=== PATIENT | male | born 1980 | race American Indian/Alaskan Native ===

== ENCOUNTER 2018-10-13 23:38 | Inpatient (IN) | payer OTHER ==
[2018-10-14] MEDS ORDERED: NORMODYNE IV ONE (00:02)
[2018-10-14] MEDS ORDERED: CARDENE 50 MG in NACL 0.9% 250ML 230 ML IV SCH (00:03)
--- NOTE | 2018-10-14 00:05 | Cat Scan Report ---
CT head/brain wo con INDICATION / CLINICAL INFORMATION: Stoke like Sx. TECHNIQUE: All CT scans at this location are performed using CT dose reduction for ALARA by means of automated e xposure control. COMPARISON: None available. FINDINGS: Ventricle size is normal. No mass or mass effect is seen. There is no evidence of intracranial hemorr sergio. No obvious area of infarction is identified. Visualized paranasal sinuses are clear. IMPRESSION: No acute findings. Signer Name: Naresh Perez MD FACR Signed: 10/14/2018 12:01 AM Workstation Name: [id number]
[2018-10-14] MEDS ORDERED: NORMODYNE IV STA (00:11)
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
[2018-10-14 00:22] LABS: Basophils # (Auto) 0.1 K/mm3 (0.0-0.1); Eosinophils # (Auto) 0.3 K/mm3 (0.0-0.4); Eosinophils % (Auto) 2.8 % (0.0-4.3); Hemoglobin 14.5 gm/dl (11.8-15.2); Lymphocytes # (Auto) 3.4 K/mm3 (1.2-5.4); Lymphocytes % (Auto) 35.6 % (13.4-35.0); Mean Corpuscular HGB Conc 35 % (32-34); Mean Corpuscular Volume 84 fl (84-94); Monocytes # (Auto) 0.8 K/mm3 (0.0-0.8); Monocytes % (Auto) 8.4 % (0.0-7.3); Platelet Count 277 K/mm3 (140-440); Red Blood Count 4.91 M/mm3 (3.65-5.03); Red Cell Distribution Width 15.3 % (13.2-15.2)
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
[2018-10-14 00:34] LABS: INR 1.01 (0.87-1.13)
[2018-10-14 00:35] LABS: Partial Thromboplastin Time 26.6 Sec. (24.2-36.6); Thrombin Time 15.5 Sec. (15.1-19.6)
[2018-10-14 00:42] LABS: Creatine Kinase MB 2.5 ng/mL (0.0-4.0)
[2018-10-14 00:43] LABS: BUN/Creatinine Ratio 14; Blood Urea Nitrogen 15 mg/dL (9-20); Hemolysis Index 460
[2018-10-14 00:55] LABS: Alanine Aminotransferase TNR units/L (7-56)
[2018-10-14] MEDS ORDERED: TYLENOL PO PRN (01:29)
[2018-10-14] MEDS ORDERED: ZOFRAN IV PRN (01:29)
[2018-10-14] MEDS ORDERED: DULCOLAX PR PRN (01:29)
[2018-10-14] MEDS ORDERED: SODIUM CHLORIDE FLUSH SYRINGE 10 ML IV PRN (01:29)
[2018-10-14] MEDS ORDERED: REGLAN PO PRN (01:29)
[2018-10-14] MEDS ORDERED: MILK OF MAGNESIA PO PRN (01:29)
[2018-10-14] MEDS ORDERED: D50W (25GM) Syringe IV PRN (01:33)
[2018-10-14] MEDS ORDERED: APRESOLINE IV PRN (01:33)
--- NOTE | 2018-10-14 01:34 | History and Physical Report ---
History of Present Illness Date of examination: 10/14/18 History of present illness: 37 year-old man with a history of hypertension, DM, obesity was brought to the emergency room with complaints of right facial droop and right side weakness and numbness while he was at work. Also complain that he felt dizzy, he has not taken antihypertensives since June. BP was 201/123, he was given labetalol and started on cardene drip, his symptoms iomprove but not back to baseline. SBP of 144 now Review of systems Constitutional: no weight loss Ears, eyes, nose, mouth and throat: no nasal congestion, no nasal discharge, no sinus pressure, no vision change, no red eye. Neck: No neck pain or rigidity. Cardiovascular: no palpitations, chest pain Respiratory: no cough, shortness of breath Gastrointestinal: no hematochezia, abdominal pain Genitourinary : no frequency , no hematuria Musculoskeletal: no joint swelling or muscle ache Integumentary: no rash, no pruritis Neurological: + parathesias, + focal weakness Endocrine: no cold or heat intolerance, no polyuria or polydipsia Hematologic/Lymphatic: no easy bruising, no easy bleeding, no gland swelling Allergic/Immunologic: no urticaria, no angioedema. PAST MEDICAL HISTORY:hypertension, diabetes, obesity PAST SURGICAL HISTORY: Hernia repair SOCIAL HISTORY: + alcohol, +tobacco, no drug use FAMILY HISTORY: Hypertension Medications and Allergies Allergies Allergy/AdvReac Type Severity Reaction Status Date / Time seafood Allergy Swelling Uncoded 09/03/15 16:55 Home Medications Medication Instructions Recorded Confirmed Last Taken Type amLODIPine [Norvasc] 10 mg PO DAILY #30 tab 09/04/15 10/14/18 Unknown Rx Insulin Glargine [Lantus VIAL] 20 unit SUB-Q QHS 10/14/18 10/14/18 Unknown History buPROPion HCl [Wellbutrin Sr] 150 mg PO BID 10/14/18 10/14/18 Unknown History Aspirin [Adult Aspirin] 81 mg PO DAILY #30 tablet. 10/16/18 Unknown Rx AtorvaSTATin [Lipitor] 40 mg PO QHS #30 tablet 10/16/18 Unknown Rx Losartan [Cozaar] 100 mg PO QDAY #30 tablet 10/16/18 Unknown Rx Nicotine [Habitrol] 14 mg TD QDAY #30 patch 10/16/18 Unknown Rx glipiZIDE XL [Glucotrol Xl] 2.5 mg PO QAM #30 tablet 10/16/18 Unknown Rx hydroCHLOROthiazide [HCTZ] 25 mg PO QDAY #30 tablet 10/16/18 Unknown Rx metFORMIN [Glucophage] 850 mg PO BID #60 tablet 10/16/18 Unknown Rx Active Meds: Active Medications Acetaminophen (Tylenol) 650 mg PO Q4H PRN PRN Reason: Pain, Mild (1-3) Aspirin (Aspirin) 325 mg PO QDAY ELIDA Atorvastatin Calcium (Lipitor) 40 mg PO QHS ELIDA Bisacodyl (Dulcolax) 10 mg [place] QDAY PRN PRN Reason: Constipation Enoxaparin Sodium (Lovenox) 30 mg SUB-Q QDAY ELIDA Nicardipine HCl 50 mg/ Sodium (Chloride) 250 mls @ 25 mls/hr IV TITR ELIDA; Protocol Stop: 10/14/18 23:59 Last Titration: 10/14/18 01:05 Dose: 0 mg/hr, 0 mls/hr Documented by: Magnesium Hydroxide (Milk Of Magnesia) 30 ml PO Q4H PRN PRN Reason: Constipation Metoclopramide HCl (Reglan) 10 mg PO Q6H PRN PRN Reason: Nausea And Vomiting Ondansetron HCl (Zofran) 4 mg IV Q8H PRN PRN Reason: Nausea And Vomiting Sodium Chloride (Sodium Chloride Flush Syringe 10 Ml) 10 ml INJ PRN PRN PRN Reason: LINE FLUSH Exam - Physical Exam Narrative exam: Gen. appearance: Patient lying in bed, no apparent distress HEENT: Normocephalic, atraumatic, pupils equally round and reactive to light, extraocular movement intact, and no sclericterus,. No JVD or thyromegaly or nodule,neck supple, no carotid bruit ,mucous membranes moist, no exudate or erythema Heart: S1, S2, regular rate and rhythm Lungs: Clear to auscultation bilaterally, breathing comfortable Abdomen: Positive bowel sounds, nontender, nondistended, no organomegaly Extremity: No edema, cyanosis, clubbing Skin: No rash, nodules, warm, dry Neuro: Oriented 3, cranial nerves II-12 intact, speech is fluent, RUE/RLE 4/5, +paresthesia on the right side - Constitutional Vitals: Temp Pulse Resp BP Pulse Ox 98.1 F 84 14 144/101 97 10/14/18 00:04 10/14/18 01:20 10/14/18 01:20 10/14/18 01:20 10/14/18 01:20 Results - Labs CBC & Chem 7: 10/14/18 00:00 10/14/18 01:05 Labs: Abnormal lab results 10/14/18 10/14/18 Range/Units 00:00 00:00 MCHC 35 H (32-34) % RDW 15.3 H (13.2-15.2) % Lymph % (Auto) 35.6 H (13.4-35.0) % [place] % (Auto) 8.4 H (0.0-7.3) % Total Creatine Kinase 280 H (55-170) units/L - Imaging and Cardiology EKG: image reviewed CT Scan - head: report reviewed Assessment and Plan Assessment Acute CVA Hypertersion malignant Diabetes Obesity Plan Admit to medicine Do neuro checks, swallow screen MR head, neck, echo Consult neurology, PT/OT Start aspirin, statin Hold cardene drip, IV hydralazine prn Check fingersticks, start sliding scale DVT prophalaxis
[2018-10-14 02:07] LABS: Alanine Aminotransferase 28 units/L (7-56); Albumin 4.1 g/dL (3.9-5); BUN/Creatinine Ratio 17; Blood Urea Nitrogen 15 mg/dL (9-20); Calcium 8.9 mg/dL (8.4-10.2); Hemolysis Index 34
[2018-10-14] MEDS: HumaLOG SUB-Q SCH ×4 (08:58→22:03)
[2018-10-14] MEDS: NORVASC PO SCH (09:04)
[2018-10-14] MEDS: HCTZ PO SCH (09:05)
[2018-10-14] MEDS ORDERED: NON-FORMULARY (Losartan/Hydrochlorothiazide [Losartan-Hctz 100-25 Mg Tab] 1 EACH) PO SCH (10:00)
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
--- NOTE | 2018-10-14 10:14 | Vascular Lab Report ---
DUPLEX DOPPLER ULTRASOUND CAROTID, BILATERAL INDICATION: cva FINDINGS: Right Carotid: No significant atherosclerotic plaque. Right CCA velocity: 123.1 cm/sec. Right ICA peak systolic velocity: 58.8 cm/sec. Right internal carotid artery end diastolic 18.6 cm/s Systolic velocity ratio: 0.48. Spectral broadening: None. Right Vertebral Artery: Antegrade flow. Left Carotid: No significant atherosclerotic plaque. Left CCA velocity: 94.9 cm/sec. Left ICA peak systolic velocity: 50.8 cm/sec. Left internal carotid artery end diastolic 28.4 cm/s Systolic velocity ratio: 0.76. Spectral broadening: None. Left Vertebral Artery: Antegrade flow. IMPRESSION: Sonographic NASCET Index This study proposed the incorporation of distal ICA flow velocity information on the conventional car otid Doppler study improving the diagnostic accuracy of PSV 1. Internal carotid arteries demonstrate <15% stenosis deceleration spectral broadening with a peak systolic velocity (PSV) <125 cm/s 2. Less than 50% stenosis external carotid arteries 3. Less than 50% stenosis common carotid arteries 4. Antegrade flow both vertebral arteries Signer Name: Ruben Moses MD Signed: 10/14/2018 10:09 AM Workstation Name: [id number]
[2018-10-14] MEDS: COZAAR PO SCH (11:22)
[2018-10-14] MEDS: ASPIRIN PO SCH (11:23)
[2018-10-14] MEDS: WELLBUTRIN SR PO SCH ×2 (11:23→22:02)
[2018-10-14] MEDS: LOVENOX SUB-Q SCH (11:23)
--- NOTE | 2018-10-14 12:04 | Progress Note ---
Subjective Date of service: 10/14/18 Interval history: see my dictaed neuro note on the patient suspect HTN encephalopathy see CT and BP checks Objective - Vital Sign Vital Signs - 12hr 10/14/18 10/14/18 10/14/18 00:04 00:05 00:06 Temperature 98.1 F Pulse Rate 84 85 Pulse Rate [ Apical] Respiratory 23 13 Rate Respiratory Rate [Back] Blood Pressure 181/121 197/142 Blood Pressure [Left] O2 Sat by Pulse 97 97 Oximetry 10/14/18 10/14/18 10/14/18 00:11 00:15 00:21 Temperature Pulse Rate 82 81 81 Pulse Rate [ Apical] Respiratory 13 14 21 Rate Respiratory Rate [Back] Blood Pressure 176/124 165/120 181/121 Blood Pressure [Left] O2 Sat by Pulse 98 94 97 Oximetry 10/14/18 10/14/18 10/14/18 00:45 00:50 00:55 Temperature Pulse Rate 81 85 85 Pulse Rate [ Apical] Respiratory 12 15 12 Rate Respiratory Rate [Back] Blood Pressure 177/123 150/106 162/104 Blood Pressure [Left] O2 Sat by Pulse 98 97 96 Oximetry 10/14/18 10/14/18 10/14/18 01:00 01:05 01:10 Temperature Pulse Rate 84 88 86 Pulse Rate [ Apical] Respiratory 11 L 13 11 L Rate Respiratory Rate [Back] Blood Pressure 151/107 146/100 134/100 Blood Pressure [Left] O2 Sat by Pulse 95 Oximetry 10/14/18 10/14/18 10/14/18 01:15 01:20 01:30 Temperature Pulse Rate 84 84 84 Pulse Rate [ Apical] Respiratory 15 14 18 Rate Respiratory Rate [Back] Blood Pressure 144/99 144/101 148/101 Blood Pressure [Left] O2 Sat by Pulse 96 97 95 Oximetry 10/14/18 10/14/18 10/14/18 01:45 02:00 02:15 Temperature Pulse Rate 80 82 83 Pulse Rate [ Apical] Respiratory 14 16 11 L Rate Respiratory Rate [Back] Blood Pressure 153/117 157/104 168/112 Blood Pressure [Left] O2 Sat by Pulse 98 Oximetry 10/14/18 10/14/18 10/14/18 02:30 02:45 03:00 Temperature Pulse Rate 81 82 85 Pulse Rate [ Apical] Respiratory 13 11 L 18 Rate Respiratory Rate [Back] Blood Pressure 172/112 156/109 148/109 Blood Pressure [Left] O2 Sat by Pulse 96 100 98 Oximetry 10/14/18 10/14/18 10/14/18 03:10 03:20 03:30 Temperature Pulse Rate 83 83 82 Pulse Rate [ Apical] Respiratory 15 17 13 Rate Respiratory Rate [Back] Blood Pressure 157/114 171/109 163/108 Blood Pressure [Left] O2 Sat by Pulse 96 95 98 Oximetry 10/14/18 10/14/18 10/14/18 03:42 04:06 04:25 Temperature 97.4 F L Pulse Rate 84 80 Pulse Rate [ Apical] Respiratory 18 Rate Respiratory 18 Rate [Back] Blood Pressure 148/105 Blood Pressure [Left] O2 Sat by Pulse 98 Oximetry 10/14/18 10/14/18 10/14/18 04:34 04:35 06:07 Temperature Pulse Rate 81 Pulse Rate [ 84 Apical] Respiratory 16 18 Rate Respiratory Rate [Back] Blood Pressure 192/121 Blood Pressure 163/108 [Left] O2 Sat by Pulse 98 98 Oximetry 10/14/18 10/14/18 10/14/18 06:08 08:13 09:04 Temperature 98.6 F Pulse Rate 78 82 82 Pulse Rate [ Apical] Respiratory 20 Rate Respiratory Rate [Back] Blood Pressure 192/121 161/131 161/131 Blood Pressure [Left] O2 Sat by Pulse 100 Oximetry 10/14/18 11:22 Temperature Pulse Rate 65 Pulse Rate [ Apical] Respiratory Rate Respiratory Rate [Back] Blood Pressure 193/97 Blood Pressure [Left] O2 Sat by Pulse Oximetry - Laboratory Findings CBC and BMP: 10/14/18 00:00 10/14/18 01:05 Abnormal Lab Findings: Abnormal Labs 10/14/18 10/14/18 10/14/18 00:00 00:00 01:05 MCHC 35 H RDW 15.3 H Lymph % (Auto) 35.6 H [place] % (Auto) 8.4 H Glucose 109 H POC Glucose Total Creatine Kinase 280 H 10/14/18 08:17 MCHC RDW Lymph % (Auto) [place] % (Auto) Glucose POC Glucose 221 H Total Creatine Kinase
--- NOTE | 2018-10-14 12:34 | Consultation ---
HISTORY OF PRESENT ILLNESS: This is a 37-year-old black male who presents to [facility] as an emergency admission. The patient came to the Emergency Room with a history obtained primarily from his girlfriend, who I had opportunity to speak with. He has a prior history of diabetes, high blood pressure. Apparently, he became upset while working and developed onset of slurred speech and she noticed that he was weak on his right side, right face was weak, he was not talking normally. He did not lose consciousness. She did not observe a seizure. His blood sugar was elevated at 221. His blood pressure was elevated in the home. After presentation in the Emergency Room, a CT scan of the head was done, which I personally reviewed and is essentially unremarkable. The patient's medications on admission were Lotrimin, metformin, amlodipine 10 mg, hydralazine 10 mg, and when he presented to the Emergency Room, his blood pressure was markedly elevated at 201/149. He was evaluated initially. The patient had evidence of some mild ataxia and may have had a hemianopsia. The patient was felt to have a stroke scale of 1. His blood pressure was assessed, evaluated since admission. PHYSICAL EXAMINATION: VITAL SIGNS: The patient's vital signs shows blood pressure is 161/131. NEUROLOGIC: Cranial nerves are intact. Slight degree of facial weakness is noted on the right side. He is alert. No drift. No focal motor deficits are present. I do not find him to be aphasic. He is fully alert, conscious and oriented. No dystonias noted. No seizure activity seen. IMPRESSION: Episode likely hypertensive crisis and also hyperglycemia with diabetic encephalopathy. I doubt based on the description that he had a seizure, although what is interesting is speaking to the girlfriend, he apparently has been on disability since childhood, she is not aware of what reason, could have been autism, attention deficit hyperactivity disorder or possibly even seizures, getting a history directly from the patient probably will be helpful. He clearly is an adult onset diabetic, I do not think he was a juvenile because he is not currently taking insulin. I would recommend getting an EEG, carotid artery ultrasound and MRI are pending. We will follow the patient with you. JOB# [id number] GUY/BRADFORD
[2018-10-14] MEDS: APRESOLINE IV PRN (13:09)
--- NOTE | 2018-10-14 16:01 | Progress Note ---
Subjective Date of service: 10/14/18 Interval history: carotid u/s is unremarkable await MRI Objective - Vital Sign Vital Signs - 12hr 10/14/18 10/14/18 10/14/18 04:06 04:25 04:34 Temperature 97.4 F L Pulse Rate 80 81 Pulse Rate [ Apical] Respiratory 18 16 Rate Respiratory 18 Rate [Back] Blood Pressure 148/105 Blood Pressure 163/108 [Left] O2 Sat by Pulse 98 98 Oximetry 10/14/18 10/14/18 10/14/18 04:35 06:07 06:08 Temperature Pulse Rate 78 Pulse Rate [ 84 Apical] Respiratory 18 Rate Respiratory Rate [Back] Blood Pressure 192/121 192/121 Blood Pressure [Left] O2 Sat by Pulse 98 Oximetry 10/14/18 10/14/18 10/14/18 08:13 09:04 10:00 Temperature 98.6 F Pulse Rate 82 82 87 Pulse Rate [ 76 Apical] Respiratory 20 20 Rate Respiratory Rate [Back] Blood Pressure 161/131 161/131 Blood Pressure [Left] O2 Sat by Pulse 100 100 Oximetry 10/14/18 10/14/18 10/14/18 11:00 11:21 11:22 Temperature Pulse Rate 79 65 Pulse Rate [ Apical] Respiratory Rate Respiratory Rate [Back] Blood Pressure 193/97 193/97 Blood Pressure [Left] O2 Sat by Pulse 98 98 Oximetry 10/14/18 10/14/18 12:34 13:09 Temperature 98.5 F Pulse Rate 82 76 Pulse Rate [ Apical] Respiratory 20 Rate Respiratory Rate [Back] Blood Pressure 180/121 180/121 Blood Pressure [Left] O2 Sat by Pulse 99 Oximetry - Laboratory Findings CBC and BMP: 10/14/18 00:00 10/14/18 01:05 Abnormal Lab Findings: Abnormal Labs 10/14/18 10/14/18 10/14/18 00:00 00:00 01:05 MCHC 35 H RDW 15.3 H Lymph % (Auto) 35.6 H [place] % (Auto) 8.4 H Glucose 109 H POC Glucose Total Creatine Kinase 280 H 10/14/18 10/14/18 08:17 12:39 MCHC RDW Lymph % (Auto) [place] % (Auto) Glucose POC Glucose 221 H 176 H Total Creatine Kinase
[2018-10-14] MEDS: LANTUS SUB-Q SCH (22:02)
[2018-10-15] MEDS: APRESOLINE IV PRN ×2 (01:08→08:39)
[2018-10-15 06:04] LABS: Chol/HDL Ratio 4.4 %
[2018-10-15] MEDS: HumaLOG SUB-Q SCH ×4 (07:30→22:12)
--- NOTE | 2018-10-15 09:05 | Progress Note ---
Subjective Date of service: 10/15/18 Interval history: patient seen and he is better pergirlfriend tend to blieve this was hypertensive encehaolopathy the only question I have is the elevated CPK that could be pointing to seizure but he denies prior hx of seizure advise good BP control and get EEG tuesday Objective - Vital Sign Vital Signs - 12hr 10/14/18 10/15/18 10/15/18 23:25 01:08 04:15 Temperature 97.9 F Pulse Rate 89 94 H 88 Respiratory 19 Rate Blood Pressure 173/132 173/132 O2 Sat by Pulse 96 Oximetry 10/15/18 10/15/18 10/15/18 04:17 08:30 08:39 Temperature 97.6 F 98.2 F Pulse Rate 92 H 93 H 90 Respiratory 20 18 Rate Blood Pressure 161/111 196/132 196/132 O2 Sat by Pulse 94 95 Oximetry - Laboratory Findings CBC and BMP: 10/14/18 00:00 10/14/18 01:05 Abnormal Lab Findings: Abnormal Labs 10/14/18 10/14/18 10/14/18 00:00 00:00 01:05 MCHC 35 H RDW 15.3 H Lymph % (Auto) 35.6 H [place] % (Auto) 8.4 H Glucose 109 H POC Glucose Total Creatine Kinase 280 H HDL Cholesterol 10/14/18 10/14/18 10/14/18 08:17 12:39 17:01 MCHC RDW Lymph % (Auto) [place] % (Auto) Glucose POC Glucose 221 H 176 H 195 H Total Creatine Kinase HDL Cholesterol 10/14/18 10/15/18 10/15/18 21:01 05:09 08:32 MCHC RDW Lymph % (Auto) [place] % (Auto) Glucose POC Glucose 195 H 135 H Total Creatine Kinase HDL Cholesterol 32 L
[2018-10-15] MEDS: ASPIRIN PO SCH (11:03)
[2018-10-15] MEDS: WELLBUTRIN SR PO SCH ×2 (11:03→22:11)
[2018-10-15] MEDS: COZAAR PO SCH (11:03)
[2018-10-15] MEDS: NORVASC PO SCH (11:04)
[2018-10-15] MEDS: LOVENOX SUB-Q SCH (11:04)
[2018-10-15] MEDS: HCTZ PO SCH (11:04)
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
[2018-10-15] MEDS: HABITROL TD SCH (16:55)
[2018-10-15] MEDS: LANTUS SUB-Q SCH (22:11)
--- NOTE | 2018-10-16 07:52 | Progress Note ---
Subjective Date of service: 10/16/18 Interval history: further testing shortly suspect diabetes and effect of HTN is the etiology of the attack Objective - Vital Sign Vital Signs - 12hr 10/15/18 10/16/18 10/16/18 23:51 02:55 04:07 Temperature 98.1 F 98.4 F Pulse Rate 94 H 96 H 95 H Respiratory 18 18 Rate Blood Pressure 145/104 148/95 O2 Sat by Pulse 97 97 Oximetry - Laboratory Findings CBC and BMP: 10/14/18 00:00 10/14/18 01:05 Abnormal Lab Findings: Abnormal Labs 10/14/18 10/14/18 10/14/18 00:00 00:00 01:05 MCHC 35 H RDW 15.3 H Lymph % (Auto) 35.6 H [place] % (Auto) 8.4 H Glucose 109 H POC Glucose Total Creatine Kinase 280 H HDL Cholesterol 10/14/18 10/14/18 10/14/18 08:17 12:39 17:01 MCHC RDW Lymph % (Auto) [place] % (Auto) Glucose POC Glucose 221 H 176 H 195 H Total Creatine Kinase HDL Cholesterol 10/14/18 10/15/18 10/15/18 21:01 05:09 08:32 MCHC RDW Lymph % (Auto) [place] % (Auto) Glucose POC Glucose 195 H 135 H Total Creatine Kinase HDL Cholesterol 32 L 10/15/18 10/15/18 10/15/18 11:14 15:27 20:52 MCHC RDW Lymph % (Auto) [place] % (Auto) Glucose POC Glucose 212 H 156 H 120 H Total Creatine Kinase HDL Cholesterol
--- NOTE | 2018-10-16 09:40 | Cat Scan Report ---
CT HEAD WITHOUT CONTRAST INDICATION : cva. Headache TECHNIQUE: Axial imaging performed from the skull apex through the skull base without the use of con trast. All CT scans at this location are performed using CT dose reduction for ALARA by means of aut omated exposure control. COMPARISON: 10/13/2018 FINDINGS: Parenchyma: No acute intracranial hemorrhage or parenchymal abnormality. Ventricles: Ventricles are normal in size and appear symmetric. Bones: No acute osseous abnormality. Sinuses: Sinuses and mastoid air cells are clear. Soft tissues: Soft tissues including the orbits appear normal. IMPRESSION: No acute abnormality. Signer Name: Koko Donnelly Jr, MD Signed: 10/16/2018 9:36 AM Workstation Name: [id number]
[2018-10-16] MEDS: ASPIRIN PO SCH (09:48)
[2018-10-16] MEDS: WELLBUTRIN SR PO SCH (09:49)
[2018-10-16] MEDS: NORVASC PO SCH (09:49)
[2018-10-16] MEDS: HCTZ PO SCH (09:49)
[2018-10-16] MEDS: LOVENOX SUB-Q SCH (09:51)
[2018-10-16] MEDS: HumaLOG SUB-Q SCH ×2 (09:52→13:04)
[2018-10-16] MEDS: HABITROL TD SCH (09:52)
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
[2018-10-16] MEDS: COZAAR PO SCH (12:13)
[2018-10-16 12:14] VITALS: BP 131/98
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
== END 2018-10-16 15:45 | disposition home or self-care (01) | DRG 78 ==
LOC: ED 23:38 → 4A 10-14 01:30
PROVIDERS: ADMIT Internal Medicine; ATTEND Internal Medicine
DX: I67.4 Hypertensive encephalopathy (principal); I16.1 Hypertensive emergency; G81.91 Hemiplegia, unspecified affecting right dominant side; E11.65 Type 2 diabetes mellitus with hyperglycemia; F17.200 Nicotine dependence, unspecified, uncomplicated; F12.90 Cannabis use, unspecified, uncomplicated; F17.210 Nicotine dependence, cigarettes, uncomplicated; I10 Essential (primary) hypertension; E66.9 Obesity, unspecified; Z82.49 Family history of ischemic heart disease and other diseases of the circulatory system; Z91.013 Allergy to seafood; Z79.4 Long term (current) use of insulin; Z79.82 Long term (current) use of aspirin; Z68.37 Body mass index [BMI] 37.0-37.9, adult; Z71.6 Tobacco abuse counseling
CPT/HCPCS: 36415; 70450; 71046; 80053; 80061; 82550; 82553; 82962; 84484; 85025; 85610; 85670; 85730; 93005; 93010; 93306; 93880; 96365; 96375; 99406; G0378; A9270-GY; J0360; J1650; J1815; J7050

== ENCOUNTER 2019-04-30 19:54 | Emergency (ER) | payer SELFPAY ==
--- NOTE | 2019-04-30 20:26 | Emergency Department Report ---
Blank Doc - Documentation Documentation: 38-year-old male that presents with uncontrolled DM. This initial assessment/diagnostic orders/clinical plan/treatment(s) is/are subject to change based on patient's health status, clinical progression and re- assessment by fellow clinical providers in the ED. Further treatment and workup at subsequent clinical providers discretion. Patient/guardians urged not to elope from the ED as their condition may be serious if not clinically assessed and managed. Initial orders include: 1- Patient sent to [facility] for further evaluation and treatment 2- labs 3- UA
[2019-04-30 20:29] VITALS: BP 140/101
[2019-04-30 20:51] LABS: Basophils # (Auto) 0.1 K/mm3 (0.0-0.1); Basophils % (Auto) 0.9 % (0.0-1.8); Eosinophils # (Auto) 0.3 K/mm3 (0.0-0.4); Eosinophils % (Auto) 3.9 % (0.0-4.3); Hematocrit 46.7 % (35.5-45.6); Hemoglobin 15.7 gm/dl (11.8-15.2); Lymphocytes # (Auto) 2.7 K/mm3 (1.2-5.4); Lymphocytes % (Auto) 35.5 % (13.4-35.0); Mean Corpuscular HGB Conc 34 % (32-34); Mean Corpuscular Volume 82 fl (84-94); Monocytes # (Auto) 0.7 K/mm3 (0.0-0.8); Platelet Count 235 K/mm3 (140-440); Red Blood Count 5.69 M/mm3 (3.65-5.03); Red Cell Distribution Width 14.4 % (13.2-15.2)
[2019-04-30 21:12] LABS: Alanine Aminotransferase 37 units/L (7-56); Albumin 4.3 g/dL (3.9-5); BUN/Creatinine Ratio 14; Blood Urea Nitrogen 18 mg/dL (9-20); Calcium 9.6 mg/dL (8.4-10.2); Hemolysis Index 13
[2019-04-30 21:45] LABS: Bilirubin,Urine NEG (Negative); Blood,Urine NEG (Negative); Color,Urine Yellow (Yellow); Mucus,Urine FEW /HPF; Protein,Urine <15 mg/dL mg/dL (Negative); Urobilinogen,Urine < 2.0 mg/dL (<2.0)
== END 2019-05-01 01:49 | disposition left against medical advice (07) ==
LOC: ED 19:54
DX: E11.9 Type 2 diabetes mellitus without complications (principal); Z53.21 Procedure and treatment not carried out due to patient leaving prior to being seen by health care provider
CPT/HCPCS: 36415; 80053; 81001; 82805; 82962; 85025

== ENCOUNTER 2019-10-07 01:27 | Observation (INO) | payer MEDICAID ==
[2019-10-07] MEDS ORDERED: ASPIRIN 325 MG TAB PO ONE (01:49)
[2019-10-07] MEDS ORDERED: fentaNYL 100 MCG/2 ML INJ IV ONE ×2 (02:18→03:44)
[2019-10-07] MEDS ORDERED: ONDANSETRON 4 MG/2 ML INJ IV ONE (02:18)
[2019-10-07] MEDS ORDERED: NITROGLYCERIN 2% OINT 1 GM TP ONE (02:18)
[2019-10-07] MEDS ORDERED: fentaNYL 100 MCG/2 ML INJ ONE (02:21)
[2019-10-07] MEDS ORDERED: ONDANSETRON 4 MG/2 ML INJ ONE (02:21)
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
--- NOTE | 2019-10-07 02:29 | XRay Report ---
CHEST 1 VIEW INDICATION / CLINICAL INFORMATION: Chest Pain. COMPARISON: None available. FINDINGS: SUPPORT DEVICES: None. HEART / MEDIASTINUM: No significant abnormality. LUNGS / PLEURA: No significant pulmonary or pleural abnormality. No pneumothorax. ADDITIONAL FINDINGS: No change in the posttraumatic deformity of the right upper rib cage with surrou nding metallic artifact IMPRESSION: 1. No acute findings. Signer Name: Greg Ivey MD Signed: 10/07/2019 2:25 AM Workstation Name: [id number]
[2019-10-07 02:49] LABS: Basophils # (Auto) 0.1 K/mm3 (0.0-0.1); Basophils % (Auto) 0.9 % (0.0-1.8); Eosinophils # (Auto) 0.3 K/mm3 (0.0-0.4); Eosinophils % (Auto) 3.1 % (0.0-4.3); Hematocrit 43.6 % (35.5-45.6); Hemoglobin 14.3 gm/dl (11.8-15.2); Lymphocytes # (Auto) 2.4 K/mm3 (1.2-5.4); Lymphocytes % (Auto) 28.5 % (13.4-35.0); Mean Corpuscular HGB Conc 33 % (32-34); Mean Corpuscular Volume 83 fl (84-94); Monocytes # (Auto) 0.9 K/mm3 (0.0-0.8); Monocytes % (Auto) 10.7 % (0.0-7.3); Platelet Count 229 K/mm3 (140-440); Red Blood Count 5.26 M/mm3 (3.65-5.03); Red Cell Distribution Width 14.8 % (13.2-15.2)
[2019-10-07 03:09] LABS: BUN/Creatinine Ratio 16; Blood Urea Nitrogen 14 mg/dL (9-20); Calcium 9.1 mg/dL (8.4-10.2); Hemolysis Index 7
[2019-10-07] MEDS ORDERED: cloNIDine 0.2 MG TAB ONE (03:13)
[2019-10-07] MEDS ORDERED: cloNIDine 0.2 MG TAB PO ONE (03:14)
[2019-10-07] MEDS ORDERED: hydrALAZINE 20 MG/1 ML INJ IV PRN (04:16)
[2019-10-07] MEDS ORDERED: DEXTROSE 50% IN WATER (25GM) 50 ML SYRINGE IV PRN (04:16)
[2019-10-07] MEDS ORDERED: ONDANSETRON 4 MG/2 ML INJ IV PRN (04:16)
[2019-10-07] MEDS ORDERED: ACETAMINOPHEN 325 MG TAB PO PRN (04:16)
[2019-10-07] MEDS ORDERED: MAGNESIUM HYDROXIDE (MOM) ORAL LIQD UDC PO PRN (04:16)
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
[2019-10-07 04:55] LABS: Basophils # (Auto) 0.1 K/mm3 (0.0-0.1); Basophils % (Auto) 0.8 % (0.0-1.8); Eosinophils # (Auto) 0.1 K/mm3 (0.0-0.4); Eosinophils % (Auto) 0.9 % (0.0-4.3); Hematocrit 42.6 % (35.5-45.6); Hemoglobin 14.2 gm/dl (11.8-15.2); Lymphocytes # (Auto) 1.2 K/mm3 (1.2-5.4); Lymphocytes % (Auto) 11.3 % (13.4-35.0); Mean Corpuscular HGB Conc 33 % (32-34); Mean Corpuscular Volume 83 fl (84-94); Monocytes # (Auto) 0.5 K/mm3 (0.0-0.8); Monocytes % (Auto) 4.9 % (0.0-7.3); Platelet Count 210 K/mm3 (140-440); Red Blood Count 5.14 M/mm3 (3.65-5.03); Red Cell Distribution Width 14.8 % (13.2-15.2)
[2019-10-07 05:27] LABS: BUN/Creatinine Ratio 16; Blood Urea Nitrogen 14 mg/dL (9-20); Chol/HDL Ratio 3.79 %; HDL Cholesterol 29 mg/dL (40-59); Hemolysis Index 8; LDL Cholesterol,Direct 68 mg/dL (50-130)
--- NOTE | 2019-10-07 11:02 | Event Note ---
Date: 10/07/19 Patient seen and examined, plan of care discussed. Plan is for stress test in am. Adjust BP for better control.
[2019-10-07] MEDS ORDERED: INSULIN LISPRO 100 UNIT/ML SUB-Q ONE ×3 (11:07→18:05)
[2019-10-07] MEDS: INSULIN LISPRO 100 UNIT/ML SUB-Q SCH ×5 (11:08→22:01)
[2019-10-07] MEDS: NITROGLYCERIN 0.4 MG TAB SUBL SL PRN ×5 (11:31→18:10)
[2019-10-07] MEDS ORDERED: NITROGLYCERIN 0.4 MG TAB SUBL SL ONE (11:32)
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
[2019-10-07] MEDS ORDERED: GABAPENTIN 300 MG CAP ONE (14:39)
[2019-10-07] MEDS: GABAPENTIN 300 MG CAP PO SCH ×2 (14:43→21:50)
[2019-10-07] MEDS: CHOLECALCIFEROL (VIT D3) 1000 UNIT (25 mcg) TAB PO SCH (18:09)
[2019-10-07] MEDS: MORPHINE 2 MG/1 ML INJ IV PRN ×2 (18:46→21:50)
[2019-10-07] MEDS: METOPROLOL TARTRATE 50 MG TAB PO SCH (21:50)
[2019-10-07] MEDS ORDERED: ENOXAPARIN 40 MG/0.4 ML INJ SUB-Q SCH (22:00)
[2019-10-07] MEDS ORDERED: INSULIN GLARGINE 100 UNITS/ML SUB-Q SCH (22:00)
[2019-10-08] MEDS ORDERED: hydrALAZINE 20 MG/1 ML INJ IV PRN (05:02)
[2019-10-08] MEDS: hydrALAZINE 25 MG TAB PO SCH ×2 (06:12→13:41)
[2019-10-08] MEDS: GABAPENTIN 300 MG CAP PO SCH ×2 (06:13→13:40)
[2019-10-08 06:35] LABS: Basophils # (Auto) 0.1 K/mm3 (0.0-0.1); Basophils % (Auto) 0.7 % (0.0-1.8); Eosinophils # (Auto) 0.2 K/mm3 (0.0-0.4); Eosinophils % (Auto) 1.8 % (0.0-4.3); Hematocrit 42.1 % (35.5-45.6); Hemoglobin 13.9 gm/dl (11.8-15.2); Lymphocytes # (Auto) 2.1 K/mm3 (1.2-5.4); Lymphocytes % (Auto) 23.9 % (13.4-35.0); Mean Corpuscular HGB Conc 33 % (32-34); Mean Corpuscular Volume 83 fl (84-94); Monocytes # (Auto) 0.9 K/mm3 (0.0-0.8); Monocytes % (Auto) 10.6 % (0.0-7.3); Platelet Count 202 K/mm3 (140-440); Red Blood Count 5.09 M/mm3 (3.65-5.03); Red Cell Distribution Width 14.7 % (13.2-15.2)
[2019-10-08 06:41] LABS: INR 1.11 (0.87-1.13)
[2019-10-08 06:52] LABS: BUN/Creatinine Ratio 10; Blood Urea Nitrogen 8 mg/dL (9-20); Hemolysis Index 0
[2019-10-08] MEDS ORDERED: REGADENOSON 0.4 MG/5 ML INJ IV ONE ×2 (07:16→07:20)
[2019-10-08] MEDS: INSULIN LISPRO 100 UNIT/ML SUB-Q SCH ×3 (08:30→12:24)
[2019-10-08] MEDS ORDERED: CLOPIDOGREL 75 MG TAB PO SCH (10:00)
[2019-10-08] MEDS ORDERED: amLODIPine 10 MG TAB PO SCH (10:00)
[2019-10-08] MEDS ORDERED: LISINOPRIL 20 MG TAB PO SCH (10:00)
[2019-10-08] MEDS ORDERED: ASPIRIN EC 325 MG TAB PO SCH (10:00)
--- NOTE | 2019-10-08 11:53 | Event Note ---
Date: 10/08/19 Patient underwent a Lexiscan thallium stress test, study completed, thallium images are being processed and results are pending.
[2019-10-08] MEDS: CHOLECALCIFEROL (VIT D3) 1000 UNIT (25 mcg) TAB PO SCH (12:23)
[2019-10-08] MEDS: METOPROLOL TARTRATE 50 MG TAB PO SCH (12:23)
[2019-10-08 13:41] VITALS: BP 164/91
--- NOTE | 2019-10-08 13:59 | Discharge Summary ---
Providers - Providers Date of Admission: 10/07/19 05:17 Attending physician: MORRO DIAS MD 10/07/19 Consult to Cardiac Rehabilitation [CONS] Routine Reason For Exam: Phase I 10/07/19 04:16 Consult to Cardiology [CONS] Routine Consulting Provider: NIKIA CALLEJAS Reason For Exam: CHEST PAIN Consult to Dietitian/Nutrition [CONS] Routine Physician Instructions: Reason For Exam: Reason for Consult: Diet education [facility] Condition: Fair Disposition: DC-01 TO HOME OR SELFCARE Exam - Constitutional Vitals: Temp Pulse Resp BP Pulse Ox 97.8 F 89 17 164/91 97 10/08/19 07:50 10/08/19 13:41 10/08/19 08:31 10/08/19 13:41 10/08/19 08:31 Plan Activity: advance as tolerated Diet: low fat Special Instructions: record daily BP diary, record blood sugar diary, smoking cessation Follow up with: SPENCER DESOUZA MD [Staff Physician] - 7 Days [facility] - 3-5 Days Prescriptions: AtorvaSTATin [Lipitor] 80 mg PO QHS #60 tablet amLODIPine 10 mg PO DAILY #30 tab hydrALAZINE [Apresoline TAB] 50 mg PO Q8HR #120 tablet Gabapentin 300 mg PO Q8HR #30 cap Metoprolol [Lopressor TAB] 50 mg PO BID #60 tablet Nitroglycerin [Nitrostat] 0.4 mg SL Q5M PRN #14 tablet PRN Reason: Chest Pain Clopidogrel [Plavix] 75 mg PO QDAY #30 tablet
--- NOTE | 2019-10-08 20:35 | Treadmill Report ---
THALLIUM STRESS TEST The Thallium stress test was done on 10/08/2019. LEFT VENTRICLE: Left ventricle is at the upper limits of normal. Perfusion study demonstrates a moderate sized, fixed inferior defect. On the resting study, there is no reversibility. Gated analysis demonstrates mild left ventricular systolic dysfunction with ejection fraction 41%. 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 There is no demonstrable maxine-infarct ischemia. Recommend clinical correlation. JOB# [id number] CA/NTS
== END 2019-10-08 14:34 | disposition home or self-care (01) ==
LOC: ED 01:27 → 4A 05:17
PROVIDERS: ADMIT Internal Medicine Geriatric Medicine; ATTEND Internal Medicine
DX: R07.89 Other chest pain (principal); I16.0 Hypertensive urgency; R94.30 Abnormal result of cardiovascular function study, unspecified; I25.10 Atherosclerotic heart disease of native coronary artery without angina pectoris; E11.9 Type 2 diabetes mellitus without complications; I10 Essential (primary) hypertension; I25.2 Old myocardial infarction; J45.909 Unspecified asthma, uncomplicated; F17.200 Nicotine dependence, unspecified, uncomplicated; Z95.5 Presence of coronary angioplasty implant and graft; Z79.4 Long term (current) use of insulin; Z79.82 Long term (current) use of aspirin; Z79.899 Other long term (current) drug therapy; Z91.013 Allergy to seafood
CPT/HCPCS: 36415; 71045; 78452; 80048; 80061; 82962; 83036; 84484; 85025; 85610; 87641; 93005; 93017; 93306; 96372; 96374; 96375; 96376; 99285; A9270; A9502; G0378; J0360; J1650; J2270; J2405; J2785; J3010; J1815

== ENCOUNTER 2020-01-05 04:59 | Inpatient (IN) | payer MEDICAID ==
[2020-01-05] MEDS ORDERED: MORPHINE 2 MG/1 ML INJ IV ONE (05:12)
[2020-01-05] MEDS ORDERED: ONDANSETRON 4 MG/2 ML INJ IV ONE (05:12)
[2020-01-05 06:03] LABS: BUN/Creatinine Ratio 8; Blood Urea Nitrogen 7 mg/dL (9-20); Calcium 8.8 mg/dL (8.4-10.2); Hemolysis Index 2
[2020-01-05 06:11] LABS: Basophils # (Auto) 0.1 K/mm3 (0.0-0.1); Basophils % (Auto) 0.5 % (0.0-1.8); Eosinophils # (Auto) 0.1 K/mm3 (0.0-0.4); Eosinophils % (Auto) 0.5 % (0.0-4.3); Hematocrit 43.8 % (35.5-45.6); Hemoglobin 14.4 gm/dl (11.8-15.2); Lymphocytes # (Auto) 1.7 K/mm3 (1.2-5.4); Lymphocytes % (Auto) 11.1 % (13.4-35.0); Mean Corpuscular HGB Conc 33 % (32-34); Mean Corpuscular Volume 85 fl (84-94); Monocytes # (Auto) 0.8 K/mm3 (0.0-0.8); Monocytes % (Auto) 5.1 % (0.0-7.3); Platelet Count 304 K/mm3 (140-440); Red Blood Count 5.16 M/mm3 (3.65-5.03); Red Cell Distribution Width 15.7 % (13.2-15.2)
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
[2020-01-05] MEDS ORDERED: HYDROmorphone 1 MG/1 ML INJ IV ONE (06:12)
[2020-01-05] MEDS ORDERED: ASPIRIN 81 MG TAB CHEW PO ONE (06:42)
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
[2020-01-05] MEDS ORDERED: NITROGLYCERIN 0.4 MG TAB SUBL SL ONE (06:52)
[2020-01-05] MEDS ORDERED: NITROGLYCERIN 0.4 MG PATCH 24HR TD ONE (07:00)
[2020-01-05] MEDS ORDERED: MORPHINE 4 MG/1 ML INJ IV ONE (08:14)
[2020-01-05 08:19] LABS: Alanine Aminotransferase < 5 units/L (7-56); Albumin < 0.2 g/dL (3.9-5)
[2020-01-05 09:06] LABS: Bilirubin,Direct < 0.2 mg/dL (0-0.2)
[2020-01-05 09:37] LABS: INR 1.06 (0.87-1.13); Partial Thromboplastin Time 25.7 Sec. (24.2-36.6)
[2020-01-05] MEDS ORDERED: NITROGLYCERIN DRIP 50 MG/250 ML BOTTLE IV SCH (10:00)
--- NOTE | 2020-01-05 13:52 | Consultation ---
History of Present Illness Consult date: 01/05/20 Requesting physician: LALA JACKSON Reason for consult: chest pain (PCCM CONSULT NOTE (Full dictation # )) History of present illness: [facility] CONSULT NOTE (Full dictation # [id number]) please see dictated notes for full details Medications and Allergies Allergies Allergy/AdvReac Type Severity Reaction Status Date / Time shrimp Allergy Swelling Verified 01/05/20 05:06 seafood Allergy Swelling Uncoded 09/03/15 16:55 Home Medications Medication Instructions Recorded Confirmed Last Taken Type Cholecalciferol (Vitamin D3) 125 mcg PO DAILY 05/14/19 10/07/19 Unknown History [Vitamin D3] Insulin Glargine,Hum.rec.anlog 17 unit SQ QHS 05/14/19 10/07/19 Unknown History [Lantus Solostar] Aspirin 325 mg PO QDAY #30 tablet 05/18/19 10/07/19 Unknown Rx Metoprolol [Lopressor TAB] 50 mg PO BID #60 tablet 05/18/19 10/07/19 Unknown Rx lisinopriL [Zestril TAB] 20 mg PO QDAY #30 tablet 05/18/19 10/07/19 Unknown Rx AtorvaSTATin [Lipitor] 80 mg PO QHS #60 tablet 10/08/19 Unknown Rx Clopidogrel [Plavix] 75 mg PO QDAY #30 tablet 10/08/19 Unknown Rx Gabapentin 300 mg PO Q8HR #30 cap 10/08/19 Unknown Rx Metoprolol [Lopressor TAB] 50 mg PO BID #60 tablet 10/08/19 Unknown Rx Nitroglycerin [Nitrostat] 0.4 mg SL Q5M PRN #14 tablet 10/08/19 Unknown Rx amLODIPine 10 mg PO DAILY #30 tab 10/08/19 Unknown Rx hydrALAZINE [Apresoline TAB] 50 mg PO Q8HR #120 tablet 10/08/19 Unknown Rx Active Meds: Active Medications Nitroglycerin/Dextrose (Tridil Drip 50mg/250ml) 50 mg in 250 mls @ 3 mls/hr IV TITR ELIDA; Protocol Last Titration: 01/05/20 12:30 Dose: 80 mcg/min, 24 mls/hr Documented by: Physical Examination Vital signs: Vital Signs Pulse Resp Pulse Ox 89 12 99 01/05/20 05:04 01/05/20 05:04 01/05/20 05:04 Results - Laboratory Findings CBC and BMP: 01/05/20 05:20 01/05/20 05:20 PT/INR, D-dimer PT 14.0 Sec. (12.2-14.9) 01/05/20 06:56 INR 1.06 (0.87-1.13) 01/05/20 06:56 Abnormal lab findings: Abnormal Labs 01/05/20 01/05/20 01/05/20 05:20 05:20 06:56 WBC 15.6 H RBC 5.16 H RDW 15.7 H Lymph % (Auto) 11.1 L Seg Neutrophils % 82.8 H Seg Neutrophils # 12.9 H Potassium 3.4 L Chloride 97.7 L Carbon Dioxide 20 L BUN 7 L Glucose 262 H ALT < 5 L Alkaline Phosphatase < 5 L Albumin < 0.2 L Plasma/Serum Alcohol 01/05/20 06:56 WBC RBC RDW Lymph % (Auto) Seg Neutrophils % Seg Neutrophils # Potassium Chloride Carbon Dioxide BUN Glucose ALT Alkaline Phosphatase Albumin Plasma/Serum Alcohol 0.12 H
[2020-01-05] MEDS ORDERED: hydrALAZINE 25 MG TAB ONE (14:14)
[2020-01-05] MEDS ORDERED: ACETAMINOPHEN 325 MG TAB PO PRN (14:29)
[2020-01-05] MEDS ORDERED: HYDROmorphone 1 MG/1 ML INJ IV PRN (14:29)
[2020-01-05] MEDS ORDERED: oxyCODONE /ACETAMINOPHEN 5-325MG TAB PO PRN (14:29)
[2020-01-05] MEDS ORDERED: METOCLOPRAMIDE 10 MG/2 ML INJ IV PRN (14:29)
[2020-01-05] MEDS ORDERED: ONDANSETRON 4 MG/2 ML INJ IV PRN (14:29)
[2020-01-05] MEDS: hydrALAZINE 25 MG TAB PO SCH ×2 (14:34→22:46)
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
--- NOTE | 2020-01-05 14:46 | Consultation ---
History of Present Illness Consult date: 01/05/20 Requesting physician: ANTONIO PICKERING Consult reason: chest pain History of present illness: Pt is a 39 y.o. AA male who presented with complaints of sharp left-sided chest pain since last night. Pt states pain has been constant and severe, currently 6/10. Pain does not radiate. No aggravating or relieving factors. Pt reports associated diaphoresis and mild SOB. Pt denies any additional cardiac complaints. No recent fever/chills. Pt does admit to excessive EtOH use last yesterday evening. Trop neg x 1 thus far. ECG reveals no acute ischemic changes. HEART Score: 4 Of note, pt has a hx of CAD s/p PCI of RCA 04/2019, as well as LAD thrombus at that time. He reports he has been compliant with DAPT and all other cardiac medications; however, BP significantly elevated at admission. Stress test 09/2019 revealed prior inferior wall ischemia; no demonstrable maxine- infarct ischemia. Past History Past Medical History: CAD, diabetes, hypertension Past Surgical History: PTCA Social history: smoking (4-5 cigars/day), alcohol abuse Medications and Allergies Allergies Allergy/AdvReac Type Severity Reaction Status Date / Time shrimp Allergy Swelling Verified 01/05/20 05:06 seafood Allergy Swelling Uncoded 09/03/15 16:55 Home Medications Medication Instructions Recorded Confirmed Last Taken Type Cholecalciferol (Vitamin D3) 125 mcg PO DAILY 05/14/19 10/07/19 Unknown History [Vitamin D3] Insulin Glargine,Hum.rec.anlog 17 unit SQ QHS 05/14/19 10/07/19 Unknown History [Lantus Solostar] Aspirin 325 mg PO QDAY #30 tablet 05/18/19 10/07/19 Unknown Rx Metoprolol [Lopressor TAB] 50 mg PO BID #60 tablet 05/18/19 10/07/19 Unknown Rx lisinopriL [Zestril TAB] 20 mg PO QDAY #30 tablet 05/18/19 10/07/19 Unknown Rx AtorvaSTATin [Lipitor] 80 mg PO QHS #60 tablet 10/08/19 Unknown Rx Clopidogrel [Plavix] 75 mg PO QDAY #30 tablet 10/08/19 Unknown Rx Gabapentin 300 mg PO Q8HR #30 cap 10/08/19 Unknown Rx Metoprolol [Lopressor TAB] 50 mg PO BID #60 tablet 10/08/19 Unknown Rx Nitroglycerin [Nitrostat] 0.4 mg SL Q5M PRN #14 tablet 10/08/19 Unknown Rx amLODIPine 10 mg PO DAILY #30 tab 10/08/19 Unknown Rx hydrALAZINE [Apresoline TAB] 50 mg PO Q8HR #120 tablet 10/08/19 Unknown Rx Active Meds: Active Medications Acetaminophen (Tylenol) 650 mg PO Q4H PRN PRN Reason: Pain MILD(1-3)/Fever >100.5/FUNK Enoxaparin Sodium (Enoxaparin) 40 mg SUB-Q QDAY@2200 [facility]; Protocol Famotidine (Pepcid) 20 mg PO BID [facility] Heparin Sodium (Porcine) (Heparin) 5,000 unit SUB-Q Q12HR [facility] Hydralazine HCl (Apresoline) 50 mg PO Q8HR [facility] Last Admin: 01/05/20 14:34 Dose: 50 mg Documented by: Hydromorphone HCl (Dilaudid) 0.5 mg IV Q3H PRN PRN Reason: Pain , Severe (7-10) Nitroglycerin/Dextrose (Tridil Drip 50mg/250ml) 50 mg in 250 mls @ 3 mls/hr IV TITR [facility]; Protocol Last Titration: 01/05/20 12:30 Dose: 80 mcg/min, 24 mls/hr Documented by: Labetalol HCl (Labetalol) 10 mg IV Q4H [facility] Stop: 01/07/20 14:59 Metoclopramide HCl (Reglan) 10 mg IV Q6H PRN PRN Reason: Nausea And Vomiting Metoprolol Tartrate (Metoprolol) 50 mg PO BID [facility] Morphine Sulfate (Morphine) 2 mg IV Q4H PRN PRN Reason: Pain, Moderate (4-6) Ondansetron HCl (Zofran) 4 mg IV Q8H PRN PRN Reason: Nausea And Vomiting Oxycodone/Acetaminophen (Percocet 5/325) 1 tab PO Q6H PRN PRN Reason: Pain, Moderate (4-6) Sodium Chloride (Sodium Chloride Flush Syringe 10 Ml) 10 ml IV BID [facility] Sodium Chloride (Sodium Chloride Flush Syringe 10 Ml) 10 ml IV PRN PRN PRN Reason: LINE FLUSH Valsartan (Diovan) 160 mg PO Q12H [facility] Review of Systems Constitutional: sweats, no fever, no chills Ears, nose, mouth and throat: no nasal congestion, no sore throat Cardiovascular: chest pain, shortness of breath, no orthopnea, no palpitations, no edema, no syncope, no lightheadedness, no dyspnea on exertion, no paroxysmal nocturnal dyspnea, no claudication Respiratory: shortness of breath, no cough, no dyspnea on exertion Gastrointestinal: no abdominal pain, no nausea, no vomiting, no diarrhea, no constipation Genitourinary Male: no dysuria, no flank pain Musculoskeletal: no neck stiffness, no neck pain, no myalgias Integumentary: no rash, no wounds Neurological: no paralysis, no weakness, no parathesias, no numbness, no tingling, no seizures, no syncope, no vertigo, no headaches Endocrine: no cold intolerance, no heat intolerance, no polydipsia, no polyuria Hematologic/Lymphatic: no easy bruising, no easy bleeding Allergic/Immunologic: no urticaria Physical Examination Last Vital Signs Temp 98.7 F 01/05/20 09:06 Pulse 72 01/05/20 14:35 Resp 13 01/05/20 13:16 BP 164/110 01/05/20 14:35 Pulse Ox 96 01/05/20 13:16 General appearance: no acute distress HEENT: Positive: EOMI, Normocephaly, Mucus Membranes Moist Neck: Positive: neck supple, trachea midline. Negative: JVD/HJR Cardiac: Positive: Reg Rate and Rhythm, S1/S2 Lungs: Positive: clear to auscultation (bilaterally) Neuro: Positive: Grossly Intact Abdomen: Positive: Soft, Active Bowel Sounds. Negative: Tender Skin: Negative: Rash Musculoskeletal: No Pain Extremities: Present: upper extr. pulses, lower extr. pulses. Absent: edema Results 01/05/20 05:20 01/05/20 05:20 Cardiac Enzymes 01/05/20 Range/Units 06:56 AST 13 (5-40) units/L Coagulation 01/05/20 Range/Units 06:56 PT 14.0 (12.2-14.9) Sec. INR 1.06 (0.87-1.13) APTT 25.7 (24.2-36.6) Sec. CBC 01/05/20 Range/Units 05:20 WBC 15.6 H (4.5-11.0) K/mm3 RBC 5.16 H (3.65-5.03) M/mm3 Hgb 14.4 (11.8-15.2) gm/dl Hct 43.8 (35.5-45.6) % Plt Count 304 (140-440) K/mm3 Lymph # (Auto) 1.7 (1.2-5.4) K/mm3 [place] # (Auto) 0.8 (0.0-0.8) K/mm3 Eos # (Auto) 0.1 (0.0-0.4) K/mm3 Baso # (Auto) 0.1 (0.0-0.1) K/mm3 Comprehensive Metabolic Panel 01/05/20 01/05/20 Range/Units 05:20 06:56 Sodium 137 (137-145) mmol/L Potassium 3.4 L (3.6-5.0) mmol/L Chloride 97.7 L (98-107) mmol/L Carbon Dioxide 20 L (22-30) mmol/L BUN 7 L (9-20) mg/dL Creatinine 0.9 (0.8-1.3) mg/dL Glucose 262 H (75-100) mg/dL Calcium 8.8 (8.4-10.2) mg/dL Direct Bilirubin < 0.2 (0-0.2) mg/dL Indirect Bilirubin 0.1 mg/dL AST 13 (5-40) units/L ALT < 5 L (7-56) units/L Alkaline Phosphatase < 5 L (35-129) units/L Total Protein 7.1 (6.3-8.2) g/dL Albumin < 0.2 L (3.9-5) g/dL - Imaging and Cardiology Echo: report reviewed Cardiac cath: report reviewed EKG: report reviewed, image reviewed - EKG Interpretation EKG: no acute changes EKG interpretations - EKG Sinus rhythms and dysrhythmias: sinus rhythm Assessment and Plan Suspect chest pain in the setting of accelerated HTN. Trend [place]. Tele monitoring. Optimize antihypertensive regimen. Wean NTG drip as tolerated. Resume DAPT. Pt is followed by [facility]. Will transfer care to their service in AM. Pt seen in conjunction with Dr. Ventura, who agrees with the assessment and plan of care. - Patient Problems (1) Chest pain Current Visit: Yes Status: Acute (2) Hypertensive urgency Current Visit: Yes Status: Acute (3) CAD (coronary artery disease) Current Visit: Yes Status: Chronic (4) Stented coronary artery Current Visit: Yes Status: Chronic (5) Acute bronchitis Current Visit: Yes Status: Suspected (6) DM2 (diabetes mellitus, type 2) Current Visit: Yes Status: Chronic (7) ETOH abuse Current Visit: Yes Status: Chronic (8) Tobacco abuse Current Visit: Yes Status: Chronic
[2020-01-05] MEDS ORDERED: VALSARTAN 160MG TAB ONE (16:08)
[2020-01-05] MEDS: VALSARTAN 160MG TAB PO SCH (16:11)
[2020-01-05 16:15] LABS: Chol/HDL Ratio 4.39 %
[2020-01-05] MEDS ORDERED: cloNIDine 0.2 MG TAB ONE (17:31)
[2020-01-05] MEDS: cloNIDine 0.2 MG TAB PO SCH ×2 (17:36→21:45)
[2020-01-05] MEDS: MORPHINE 2 MG/1 ML INJ IV PRN (18:56)
[2020-01-05] MEDS ORDERED: FAMOTIDINE 20 MG/2 ML INJ IV SCH (22:00)
[2020-01-05] MEDS ORDERED: ENOXAPARIN 40 MG/0.4 ML INJ SUB-Q SCH (22:00)
[2020-01-05] MEDS: FAMOTIDINE 20 MG TAB PO SCH (22:44)
[2020-01-05] MEDS: HEPARIN 5,000 UNIT/1 ML VIAL SUB-Q SCH (22:46)
[2020-01-05] MEDS: METOPROLOL TARTRATE 50 MG TAB PO SCH (22:47)
[2020-01-05] MEDS: carvediloL 12.5 MG TAB PO SCH (22:47)
[2020-01-06] MEDS: VALSARTAN 160MG TAB PO SCH ×2 (03:21→15:30)
[2020-01-06] MEDS: INSULIN LISPRO 100 UNIT/ML VIAL 3 mL SUB-Q SCH ×5 (03:46→22:50)
[2020-01-06 05:49] LABS: Basophils # (Auto) 0.1 K/mm3 (0.0-0.1); Basophils % (Auto) 0.8 % (0.0-1.8); Eosinophils # (Auto) 0.2 K/mm3 (0.0-0.4); Eosinophils % (Auto) 1.9 % (0.0-4.3); Hematocrit 40.2 % (35.5-45.6); Hemoglobin 13.5 gm/dl (11.8-15.2); Lymphocytes # (Auto) 2.4 K/mm3 (1.2-5.4); Lymphocytes % (Auto) 26.5 % (13.4-35.0); Mean Corpuscular HGB Conc 34 % (32-34); Mean Corpuscular Volume 84 fl (84-94); Monocytes # (Auto) 0.9 K/mm3 (0.0-0.8); Monocytes % (Auto) 10.1 % (0.0-7.3); Platelet Count 253 K/mm3 (140-440); Red Blood Count 4.78 M/mm3 (3.65-5.03); Red Cell Distribution Width 15.5 % (13.2-15.2)
[2020-01-06 06:14] LABS: Alanine Aminotransferase 25 units/L (7-56); Albumin 3.8 g/dL (3.9-5); BUN/Creatinine Ratio 9; Blood Urea Nitrogen 8 mg/dL (9-20); Calcium 8.8 mg/dL (8.4-10.2); Hemolysis Index 0
[2020-01-06] MEDS: hydrALAZINE 25 MG TAB PO SCH ×3 (06:33→22:50)
[2020-01-06] MEDS: MORPHINE 2 MG/1 ML INJ IV PRN (06:36)
[2020-01-06] MEDS ORDERED: INSULIN LISPRO 100 UNIT/ML VIAL 3 mL SUB-Q SCH (07:30)
[2020-01-06] MEDS: cloNIDine 0.2 MG TAB PO SCH ×3 (08:35→21:15)
[2020-01-06 08:47] LABS: Bilirubin,Urine NEG (Negative); Blood,Urine NEG (Negative); Color,Urine Straw (Yellow); Mucus,Urine FEW /HPF; Protein,Urine <15 mg/dL mg/dL (Negative); Urobilinogen,Urine < 2.0 mg/dL (<2.0)
[2020-01-06] MEDS: carvediloL 12.5 MG TAB PO SCH ×2 (09:14→22:50)
[2020-01-06] MEDS: FAMOTIDINE 20 MG TAB PO SCH ×2 (09:14→22:50)
[2020-01-06] MEDS ORDERED: HEPARIN 10,000 UNITS/10 ML VIAL IV NR (09:14)
[2020-01-06] MEDS: METOPROLOL TARTRATE 50 MG TAB PO SCH ×2 (09:14→23:00)
[2020-01-06] MEDS: HEPARIN 5,000 UNIT/1 ML VIAL SUB-Q SCH (09:15)
[2020-01-06 09:33] LABS: Amphetamine Screen,Urine PRESUMPTIVE NEGATIVE; Benzodiazepines Screen,Urine PRESUMPTIVE NEGATIVE; Cannabinoid Screen,Urine PRESUMPTIVE POSITIVE; Cocaine Screen,Urine PRESUMPTIVE NEGATIVE; Methadone Screen,Urine PRESUMPTIVE NEGATIVE; Opiate Screen,Urine PRESUMPTIVE NEGATIVE
[2020-01-06] MEDS ORDERED: ASPIRIN EC 81 MG TAB PO SCH (10:00)
[2020-01-06] MEDS: CLOPIDOGREL 75 MG TAB PO SCH (10:27)
[2020-01-06] MEDS: HEPARIN/ 0.45% NACL DRIP 25,000 UNIT/500 ML BAG IV SCH (10:28)
--- NOTE | 2020-01-06 10:31 | Consultation ---
History of Present Illness Consult date: 01/06/20 Consult reason: chest pain History of present illness: 39 year old male presenting with chest tightness and shortness of breath. Discomfort reminiscent of what he felt earlier this year when he had the heart attack. Patient is poorly compliant with medical therapy and follow-up. His DM is uncontrolled, his hypertension is uncontrolled. He does not monitor his blood sugar at home. He admits to alcohol binging but denies recent cocaine use. ECG showing no interval changes when compared to previous. Troponin however is elevated ruling patient in for NSTEMI. BP on admission was very elevated. Past History Past Medical History: CAD, diabetes, hypertension Past Surgical History: PTCA Social history: smoking (4-5 cigars/day), alcohol abuse Medications and Allergies Allergies Allergy/AdvReac Type Severity Reaction Status Date / Time shrimp Allergy Swelling Verified 01/05/20 05:06 seafood Allergy Swelling Uncoded 09/03/15 16:55 Home Medications Medication Instructions Recorded Confirmed Last Taken Type Cholecalciferol (Vitamin D3) 125 mcg PO DAILY 05/14/19 10/07/19 Unknown History [Vitamin D3] Insulin Glargine,Hum.rec.anlog 17 unit SQ QHS 05/14/19 10/07/19 Unknown History [Lantus Solostar] Aspirin 325 mg PO QDAY #30 tablet 05/18/19 10/07/19 Unknown Rx Metoprolol [Lopressor TAB] 50 mg PO BID #60 tablet 05/18/19 10/07/19 Unknown Rx lisinopriL [Zestril TAB] 20 mg PO QDAY #30 tablet 05/18/19 10/07/19 Unknown Rx AtorvaSTATin [Lipitor] 80 mg PO QHS #60 tablet 10/08/19 Unknown Rx Clopidogrel [Plavix] 75 mg PO QDAY #30 tablet 10/08/19 Unknown Rx Gabapentin 300 mg PO Q8HR #30 cap 10/08/19 Unknown Rx Metoprolol [Lopressor TAB] 50 mg PO BID #60 tablet 10/08/19 Unknown Rx Nitroglycerin [Nitrostat] 0.4 mg SL Q5M PRN #14 tablet 10/08/19 Unknown Rx amLODIPine 10 mg PO DAILY #30 tab 10/08/19 Unknown Rx hydrALAZINE [Apresoline TAB] 50 mg PO Q8HR #120 tablet 10/08/19 Unknown Rx Active Meds: Active Medications Acetaminophen (Tylenol) 650 mg PO Q4H PRN PRN Reason: Pain MILD(1-3)/Fever >100.5/FUNK Aspirin (Halfprin Ec) 81 mg PO QDAY [facility] Carvedilol (Coreg) 12.5 mg PO BID [facility] Last Admin: 01/06/20 09:14 Dose: 12.5 mg Documented by: Clonidine HCl (Catapres) 0.2 mg PO TID [facility] Last Admin: 01/06/20 08:35 Dose: 0.2 mg Documented by: Clopidogrel Bisulfate (Plavix) 75 mg PO QDAY [facility] Famotidine (Pepcid) 20 mg PO BID [facility] Last Admin: 01/06/20 09:14 Dose: 20 mg Documented by: Hydralazine HCl (Apresoline) 50 mg PO Q8HR [facility] Last Admin: 01/06/20 06:33 Dose: 50 mg Documented by: Hydromorphone HCl (Dilaudid) 0.5 mg IV Q3H PRN PRN Reason: Pain , Severe (7-10) Nitroglycerin/Dextrose (Tridil Drip 50mg/250ml) 50 mg in 250 mls @ 3 mls/hr IV TITR [facility]; Protocol Last Titration: 01/05/20 13:30 Dose: Infused Documented by: Heparin Sodium/Sodium Chloride (Heparin/ 0.45% Nacl-25,000 Unit/500 Ml) 25,000 unit in 500 mls @ 20 mls/hr IV TITRATE [facility]; Protocol Sodium Chloride (Nacl 0.9% 500 Ml) 500 mls @ 50 mls/hr IV DIRECT [facility] Stop: 01/06/20 20:59 Insulin Human Lispro (Humalog) 0 unit SUB-Q ACHS [facility]; Protocol Last Admin: 01/06/20 08:10 Dose: 3 unit Documented by: Labetalol HCl (Labetalol) 10 mg IV Q4H [facility] Stop: 01/07/20 14:59 Last Admin: 01/06/20 06:44 Dose: 10 mg Documented by: Metoclopramide HCl (Reglan) 10 mg IV Q6H PRN PRN Reason: Nausea And Vomiting Metoprolol Tartrate (Metoprolol) 50 mg PO BID [facility] Last Admin: 01/06/20 09:14 Dose: 50 mg Documented by: Morphine Sulfate (Morphine) 2 mg IV Q4H PRN PRN Reason: Pain, Moderate (4-6) Last Admin: 01/06/20 06:36 Dose: 2 mg Documented by: Ondansetron HCl (Zofran) 4 mg IV Q8H PRN PRN Reason: Nausea And Vomiting Oxycodone/Acetaminophen (Percocet 5/325) 1 tab PO Q6H PRN PRN Reason: Pain, Moderate (4-6) Sodium Chloride (Sodium Chloride Flush Syringe 10 Ml) 10 ml IV BID [facility] Last Admin: 01/06/20 09:15 Dose: 10 ml Documented by: Sodium Chloride (Sodium Chloride Flush Syringe 10 Ml) 10 ml IV PRN PRN PRN Reason: LINE FLUSH Valsartan (Diovan) 160 mg PO Q12H [facility] Last Admin: 01/06/20 03:21 Dose: 160 mg Documented by: Review of Systems All systems: negative Physical Examination Vital Signs Pulse Resp Pulse Ox 89 12 99 01/05/20 05:04 01/05/20 05:04 01/05/20 05:04 General appearance: no acute distress HEENT: Positive: PERRL Neck: Positive: neck supple Cardiac: Positive: Reg Rate and Rhythm Lungs: Positive: Normal Exam Neuro: Positive: Grossly Intact Abdomen: Positive: Soft Extremities: Absent: edema Results 01/06/20 05:04 01/06/20 05:04 Cardiac Enzymes 01/06/20 Range/Units 05:04 AST 71 H (5-40) units/L Lipids 01/05/20 Range/Units 15:10 Triglycerides 103 (2-149) mg/dL Cholesterol 145 (50-199) mg/dL HDL Cholesterol 33 L (40-59) mg/dL Cholesterol/HDL Ratio 4.39 % CBC 01/06/20 Range/Units 05:04 WBC 9.1 (4.5-11.0) K/mm3 RBC 4.78 (3.65-5.03) M/mm3 Hgb 13.5 (11.8-15.2) gm/dl Hct 40.2 (35.5-45.6) % Plt Count 253 (140-440) K/mm3 Lymph # (Auto) 2.4 (1.2-5.4) K/mm3 [place] # (Auto) 0.9 H (0.0-0.8) K/mm3 Eos # (Auto) 0.2 (0.0-0.4) K/mm3 Baso # (Auto) 0.1 (0.0-0.1) K/mm3 Comprehensive Metabolic Panel 01/06/20 Range/Units 05:04 Sodium 135 L (137-145) mmol/L Potassium 3.6 (3.6-5.0) mmol/L Chloride 97.5 L (98-107) mmol/L Carbon Dioxide 24 (22-30) mmol/L BUN 8 L (9-20) mg/dL Creatinine 0.9 (0.8-1.3) mg/dL Glucose 242 H (75-100) mg/dL Calcium 8.8 (8.4-10.2) mg/dL AST 71 H (5-40) units/L ALT 25 (7-56) units/L Alkaline Phosphatase 71 (35-129) units/L Total Protein 6.8 (6.3-8.2) g/dL Albumin 3.8 L (3.9-5) g/dL - EKG Interpretation EKG: sinus rhythm EKG interpretations - Telemetry EKG Rhythm: Sinus Rhythm Assessment and Plan NSTEMI Chest pain this admission reminiscent of symptoms when he had FL back in Apr Coronary artery disease s/p PCI to RCA 04/2019 LAD thrombus treated with anticoagulation 04/2019 Abnormal ECG No acute changes this admission Hypertensive urgency Poorly controlled blood pressure Tobacco use Uncontrolled type II DM Poorly controlled blood glucose Non-compliance Recommendations: BP control Blood sugar control IV heparin Resume DAPT and high intensity statin Cardiac cath in am
[2020-01-06 10:43] LABS: Hematocrit 38.9 % (35.5-45.6)
[2020-01-06] MEDS ORDERED: SODIUM CHLORIDE 0.9% 500 ML 500 ML IV SCH (11:00)
[2020-01-06 11:29] LABS: INR 1.07 (0.87-1.13)
[2020-01-06 11:31] LABS: Partial Thromboplastin Time 31.1 Sec. (24.2-36.6)
--- NOTE | 2020-01-06 13:13 | Progress Note ---
Assessment and Plan - Patient Problems (1) NSTEMI (non-ST elevated myocardial infarction) Current Visit: Yes Status: Acute Plan to address problem: Patient is NSTEMI second troponin is elevated patient started on IV heparin patient for cardiac cath cardiology consulted trend the troponins (2) Hypertensive emergency Current Visit: Yes Status: Acute Plan to address problem: Blood pressure better controlled Continue same blood pressure medications Adjust medications as necessary (3) CAD (coronary artery disease) Current Visit: Yes Status: Chronic Qualifiers: Coronary Disease-Associated Artery/Lesion type: [place] artery [place] vs. transplanted heart: [place] heart Plan to address problem: Continue Plavix (4) DVT prophylaxis Current Visit: No Status: Acute Plan to address problem: On IV heparin and GI prophylaxis Subjective Date of service: 01/06/20 Principal diagnosis: NSTEMI Interval history: 39 year old male presenting with chest tightness and shortness of breath. Discomfort reminiscent of what he felt earlier this year when he had the heart attack. Patient is poorly compliant with medical therapy and follow-up. His DM is uncontrolled, his hypertension is uncontrolled. He does not monitor his blood sugar at home. He admits to alcohol binging but denies recent cocaine use. ECG showing no interval changes when compared to previous. Troponin however is elevated ruling patient in for NSTEMI. BP on admission was very elevated. Patient for cath tomorrow Objective - Constitutional Vitals: Vital Signs - 12hr 01/06/20 01/06/20 01/06/20 03:21 06:27 06:33 Temperature 98.2 F Pulse Rate 73 81 78 Respiratory 18 Rate Respiratory Rate [Back] Blood Pressure 178/129 177/117 177/117 O2 Sat by Pulse 99 Oximetry 01/06/20 01/06/20 01/06/20 06:44 07:01 08:35 Temperature 98.5 F Pulse Rate 78 78 78 Respiratory 18 Rate Respiratory Rate [Back] Blood Pressure 177/117 180/123 174/64 O2 Sat by Pulse 95 Oximetry 01/06/20 01/06/20 01/06/20 09:14 10:00 11:32 Temperature Pulse Rate 78 86 74 Respiratory Rate Respiratory 14 Rate [Back] Blood Pressure 181/119 161/105 O2 Sat by Pulse Oximetry General appearance: Present: no acute distress, well-nourished - EENT Eyes: PERRL, EOM intact ENT: hearing intact, clear oral mucosa Ears: bilateral: normal - Neck Neck: supple, normal ROM - Respiratory Respiratory effort: normal Respiratory: bilateral: CTA - Breasts Breasts: normal - Cardiovascular Heart rate: 78 Rhythm: regular Heart Sounds: Present: S1 & S2. Absent: gallop, rub Extremities: pulses intact, No edema, normal color, Full ROM - Gastrointestinal General gastrointestinal: Present: soft, non-tender, non-distended, normal bowel sounds - Genitourinary Male genitourinary: normal - Integumentary Integumentary: clear, warm, dry - Musculoskeletal Musculoskeletal: 1, strength equal bilaterally - Neurologic Neurologic: moves all extremities - Psychiatric Psychiatric: memory intact, appropriate mood/affect, intact judgment & insight - Labs CBC & Chem 7: 01/08/20 04:39 01/08/20 04:39 Labs: Abnormal lab results 01/05/20 01/05/20 01/05/20 Range/Units 15:10 15:10 20:34 RDW (13.2-15.2) % [place] % (Auto) (0.0-7.3) % [place] # (Auto) (0.0-0.8) K/mm3 Sodium (137-145) mmol/L Chloride (98-107) mmol/L BUN (9-20) mg/dL Glucose (75-100) mg/dL POC Glucose (70-105) Hemoglobin A1c 12.6 H (4-6) % AST (5-40) units/L Troponin T 0.145 H* D 0.187 H* D (0.00-0.029) ng/mL Albumin (3.9-5) g/dL HDL Cholesterol 33 L (40-59) mg/dL 01/05/20 01/06/20 01/06/20 Range/Units 23:28 03:49 05:04 RDW 15.5 H (13.2-15.2) % [place] % (Auto) 10.1 H (0.0-7.3) % [place] # (Auto) 0.9 H (0.0-0.8) K/mm3 Sodium (137-145) mmol/L Chloride (98-107) mmol/L BUN (9-20) mg/dL Glucose (75-100) mg/dL POC Glucose 265 H 264 H (70-105) Hemoglobin A1c (4-6) % AST (5-40) units/L Troponin T (0.00-0.029) ng/mL Albumin (3.9-5) g/dL HDL Cholesterol (40-59) mg/dL 01/06/20 01/06/20 01/06/20 Range/Units 05:04 08:16 11:45 RDW (13.2-15.2) % [place] % (Auto) (0.0-7.3) % [place] # (Auto) (0.0-0.8) K/mm3 Sodium 135 L (137-145) mmol/L Chloride 97.5 L (98-107) mmol/L BUN 8 L (9-20) mg/dL Glucose 242 H (75-100) mg/dL POC Glucose 200 H 240 H (70-105) Hemoglobin A1c (4-6) % AST 71 H (5-40) units/L Troponin T (0.00-0.029) ng/mL Albumin 3.8 L (3.9-5) g/dL HDL Cholesterol (40-59) mg/dL HEART Score - HEART Score EKG: Non-specific Age: < 45 Risk factors: > 3 risk factors or hx of atherosclerotic disease Troponin: Troponin T 0.187 ng/mL (0.00-0.029) H* D 01/05/20 20:34 Troponin: < normal limit - Critical Actions Critical Actions: 4-6 pts:12-16.6% risk of adverse cardiac event. Should be admitted
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
[2020-01-07] MEDS: VALSARTAN 160MG TAB PO SCH ×2 (03:50→14:16)
[2020-01-07 05:37] LABS: INR 1.01 (0.87-1.13)
[2020-01-07 05:45] LABS: Partial Thromboplastin Time 63.6 Sec. (24.2-36.6)
[2020-01-07 05:50] LABS: BUN/Creatinine Ratio 10; Blood Urea Nitrogen 9 mg/dL (9-20); Calcium 8.7 mg/dL (8.4-10.2); Hemolysis Index 2
[2020-01-07] MEDS: hydrALAZINE 25 MG TAB PO SCH ×4 (06:41→22:20)
[2020-01-07] MEDS: INSULIN LISPRO 100 UNIT/ML VIAL 3 mL SUB-Q SCH ×4 (07:50→22:45)
[2020-01-07] MEDS: cloNIDine 0.2 MG TAB PO SCH ×3 (07:51→21:45)
[2020-01-07] MEDS ORDERED: HEPARIN/NS 5000 UNIT/500ML 1,000 ML IR ONE (09:39)
[2020-01-07] MEDS ORDERED: NITROGLYCERIN SYRINGE 3 ML ONE (09:40)
[2020-01-07] MEDS ORDERED: LIDOCAINE (2%) 20 MG/1 ML VIAL 20 ML MDV INFILTRATI ONE (09:40)
[2020-01-07] MEDS: fentaNYL 100 MCG/2 ML INJ ONE ×3 (10:05→11:05)
[2020-01-07] MEDS: MIDAZOLAM 2 MG/2 ML INJ ONE ×3 (10:05→11:05)
[2020-01-07] MEDS ORDERED: CLOPIDOGREL 75 MG TAB ONE (10:11)
[2020-01-07] MEDS ORDERED: ASPIRIN EC 325 MG TAB PO ONE (10:12)
[2020-01-07] MEDS ORDERED: SODIUM CHLORIDE 0.9% 1000 ML 1,000 ML ONE (10:13)
[2020-01-07] MEDS ORDERED: diphenhydrAMINE 50 MG/ML VIAL ONE (10:14)
[2020-01-07] MEDS ORDERED: HYDROCORTISONE SOD SUCC 100 MG/2 ML VIAL ONE (10:14)
[2020-01-07] MEDS: CLOPIDOGREL 75 MG TAB PO SCH (10:20)
[2020-01-07] MEDS: HEPARIN 10,000 UNITS/10 ML VIAL ONE ×3 (10:47→11:09)
[2020-01-07] MEDS: VERAPAMIL 5 MG/2 ML INJ ONE ×3 (10:48→11:09)
[2020-01-07] MEDS ORDERED: SODIUM CHLORIDE 0.9% 500 ML 500 ML IV SCH (11:00)
[2020-01-07] MEDS ORDERED: ASPIRIN EC 325 MG TAB PO SCH (11:00)
[2020-01-07] MEDS ORDERED: TIROFIBAN/NS 12,500 MCG/250 ML BAG IV ONE (11:24)
[2020-01-07] MEDS ORDERED: SODIUM CHLORIDE 0.9% 1000 ML 1,000 ML IV SCH (12:15)
[2020-01-07] MEDS ORDERED: HYDROcodone/ACETAMINOPHEN 5-325 MG TAB PO PRN (12:15)
--- NOTE | 2020-01-07 12:15 | Event Note ---
Date: 01/07/20 Cardiac cath completed, no complications. 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 [place], 99% thrombus occlusion of the mid-OM. We will plan PCI of the OM after 48-72 hours of IV aggrastat.
[2020-01-07] MEDS: FAMOTIDINE 20 MG TAB PO SCH ×2 (12:32→22:18)
[2020-01-07] MEDS: METOPROLOL TARTRATE 50 MG TAB PO SCH ×2 (12:33→22:19)
--- NOTE | 2020-01-07 13:42 | Cardiac Catherization Report ---
CARDIAC CATHETERIZATION REPORT REASON FOR PROCEDURE: The patient is a 39-year-old man with coronary artery disease, who underwent coronary stenting of the distal right coronary artery 10 months ago. At that time, he was also found with a filling defect, thrombus of the mid LAD. The mid LAD thrombus was treated medically with an extended period of intravenous antiplatelet and anticoagulant therapy, and resolved on a followup cardiac catheterization, did not require further intervention. He is admitted to the hospital at this time with recurrent angina and evidence of a non-ST elevation myocardial infarction. PROCEDURE: 1. Left heart catheterization. 2. Selective left and right coronary angiography. 3. Left ventricular angiography. 4. Sedation time, start 10:20, end 11:27. DESCRIPTION OF PROCEDURE: The patient was prepped and draped in a sterile fashion after informed consent. The right radial cath site was prepped and draped after a negative Arturo's test. The right radial artery was entered using Seldinger technique followed by placement of a 6-[place]ian hydrophilic sheath. Routine radial cocktail was administered via the sheath. Selective left and right coronary angiography was performed using #3.5 left Jose Alfredo and a #4 right Jose Alfredo. A pigtail catheter was used for left ventricular angiography. The angiograms were reviewed. FINDINGS: HEMODYNAMICS: Left ventricular end-diastolic pressure was 35-39, following coronary angiography. Ascending aortic pressure was 165/106. There was no significant pressure gradient on pullback across the aortic valve. CORONARY ANGIOGRAPHY: Left main coronary artery was free of significant disease. The left anterior descending artery contained mild luminal irregularities in its proximal and mid segments. We found a 60% ostial stenosis of a small to medium sized mid diagonal branch, otherwise no significant stenosis were noted in the LAD system. The circumflex system was notable for a thrombotic occlusion of the mid obtuse marginal branch in its mid to distal segment. There was a long filling defect extending into the small caliber distal segment of this vessel, associated with delayed antegrade flow. Otherwise, mild irregularities were noted in the rest of the circumflex system. The right coronary artery was dominant. We found a stent that was located in the distal AV groove vessel after the origin of the right posterior descending branch. The vessel was occluded distally within the stented segment. There was no significant forward flow and no collateralization of the posterolateral system. The appearance of the stent occlusion is likely consistent with an occlusive restenosis. Otherwise, the right coronary artery was patent in its proximal, mid, and distal segment leading to a large right posterior descending branch. Left ventricular chamber size was at the upper limits of normal. There was hypo to akinesis of the basal inferior wall, otherwise the remainder of the left coronary segments demonstrated well-preserved wall motion. The global left ventricular systolic ejection fraction was 45-50%. CONCLUSIONS: 1. Multivessel coronary artery disease. 2. Occlusive restenosis, chronic total occlusion of the distal right coronary artery stent, not suitable for revascularization. 3. Occlusive thrombosis of the mid and distal segments of the mid obtuse marginal branch. 4. Mild left ventricular systolic dysfunction with an ejection fraction of 45-50%. RECOMMENDATIONS: The patient will be considered for coronary intervention to the mid obtuse marginal branch after 48 hours of optimal anticoagulant and antiplatelet therapy. This will hopefully reduce thrombus burden, which extends into small caliber distal segments of the mid obtuse marginal. JOB# [id number] SUNITHA/[place]
[2020-01-07] MEDS: HEPARIN/ 0.45% NACL DRIP 25,000 UNIT/500 ML BAG IV SCH (14:19)
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
[2020-01-07] MEDS: TIROFIBAN/NS 12,500 MCG/250 ML BAG IV SCH (22:13)
[2020-01-07] MEDS: TICAGRELOR 90 MG TAB PO SCH (22:18)
[2020-01-08] MEDS: VALSARTAN 160MG TAB PO SCH ×2 (02:42→17:03)
[2020-01-08 04:59] LABS: Basophils # (Auto) 0.1 K/mm3 (0.0-0.1); Basophils % (Auto) 0.9 % (0.0-1.8); Eosinophils # (Auto) 0.2 K/mm3 (0.0-0.4); Eosinophils % (Auto) 2.2 % (0.0-4.3); Hematocrit 36.5 % (35.5-45.6); Lymphocytes # (Auto) 3.4 K/mm3 (1.2-5.4); Mean Corpuscular HGB Conc 33 % (32-34); Mean Corpuscular Volume 84 fl (84-94); Monocytes # (Auto) 0.9 K/mm3 (0.0-0.8); Monocytes % (Auto) 8.9 % (0.0-7.3); Platelet Count 245 K/mm3 (140-440); Red Blood Count 4.35 M/mm3 (3.65-5.03); Red Cell Distribution Width 15.4 % (13.2-15.2)
[2020-01-08 05:35] LABS: Creatine Kinase MB 2.9 ng/mL (0.0-4.0)
[2020-01-08 05:37] LABS: BUN/Creatinine Ratio 16; Blood Urea Nitrogen 14 mg/dL (9-20); Calcium 8.6 mg/dL (8.4-10.2); Hemolysis Index 2
[2020-01-08] MEDS: hydrALAZINE 25 MG TAB PO SCH ×3 (06:55→23:12)
--- NOTE | 2020-01-08 07:37 | Progress Note ---
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 Patient given Aggrastat for 48 hours and repeat on Tuesday or of this week (2) CAD (coronary artery disease) Current Visit: Yes Status: Chronic Qualifiers: Coronary Disease-Associated Artery/Lesion type: [place] artery [place] vs. transplanted heart: [place] heart Plan to address problem: Continue Plavix (3) DM2 (diabetes mellitus, type 2) Current Visit: Yes Status: Chronic Plan to address problem: Continue Lantus and coverage (4) Hyperlipidemia Current Visit: Yes Status: Chronic Qualifiers: Hyperlipidemia type: mixed hyperlipidemia Qualified Code(s): E78.2 - Mixed hyperlipidemia Plan to address problem: Continue statins (5) DVT prophylaxis Current Visit: Yes Status: Acute Plan to address problem: Patient on Aggrastat and GI prophylaxis (6) Discharge planning issues Current Visit: Yes Status: Acute Plan to address problem: Patient to get repeat PCI on Tuesday or . To continue Aggrastat till then discharge after the repeat PCI Subjective Date of service: 01/07/20 Principal diagnosis: NSTEMI Interval history: 39 year old male presenting with chest tightness and shortness of breath. Discomfort reminiscent of what he felt earlier this year when he had the heart attack. Patient is poorly compliant with medical therapy and follow-up. His DM is uncontrolled, his hypertension is uncontrolled. He does not monitor his blood sugar at home. He admits to alcohol binging but denies recent cocaine use. ECG showing no interval changes when compared to previous. Troponin however is elevated ruling patient in for NSTEMI. BP on admission was very elevated. Patient for cath this morning Objective - Constitutional Vitals: Vital Signs - 12hr 01/07/20 01/07/20 01/07/20 21:45 22:00 22:19 Temperature Pulse Rate 67 81 70 Pulse Rate [ 79 Left Radial] Pulse Rate [ 70 Right Radial] Respiratory 18 Rate Blood Pressure 134/94 141/96 O2 Sat by Pulse 99 Oximetry 01/07/20 01/07/20 01/08/20 22:20 23:25 02:42 Temperature 98.7 F Pulse Rate 70 81 65 Pulse Rate [ Left Radial] Pulse Rate [ Right Radial] Respiratory 18 Rate Blood Pressure 141/96 150/93 151/101 O2 Sat by Pulse 99 Oximetry 01/08/20 01/08/20 03:50 06:55 Temperature 98.4 F Pulse Rate 60 66 Pulse Rate [ Left Radial] Pulse Rate [ Right Radial] Respiratory 18 Rate Blood Pressure 160/99 142/93 O2 Sat by Pulse 97 Oximetry General appearance: Present: no acute distress, well-nourished - EENT Eyes: PERRL, EOM intact ENT: hearing intact, clear oral mucosa Ears: bilateral: normal - Neck Neck: supple, normal ROM - Respiratory Respiratory effort: normal Respiratory: bilateral: CTA - Breasts Breasts: normal - Cardiovascular Heart rate: 78 Rhythm: regular Heart Sounds: Present: S1 & S2. Absent: gallop, rub Extremities: pulses intact, No edema, normal color, Full ROM - Gastrointestinal General gastrointestinal: Present: soft, non-tender, non-distended, normal bowel sounds - Genitourinary Male genitourinary: normal - Integumentary Integumentary: clear, warm, dry - Musculoskeletal Musculoskeletal: 1, strength equal bilaterally - Neurologic Neurologic: moves all extremities - Psychiatric Psychiatric: memory intact, appropriate mood/affect, intact judgment & insight - Allied health notes Allied health notes reviewed: nursing, case management - Labs CBC & Chem 7: 01/08/20 04:39 01/08/20 04:39 Labs: Abnormal lab results 01/07/20 01/07/20 01/07/20 Range/Units 07:48 08:02 12:52 RDW (13.2-15.2) % [place] % (Auto) (0.0-7.3) % [place] # (Auto) (0.0-0.8) K/mm3 Heparin Anti-Xa Level < 0.10 L (0.3-0.7) U.I./ml Potassium (3.6-5.0) mmol/L Glucose (75-100) mg/dL POC Glucose 201 H 216 H (70-105) Troponin T (0.00-0.029) ng/mL 01/07/20 01/07/20 01/08/20 Range/Units 16:59 21:26 04:39 RDW 15.4 H (13.2-15.2) % [place] % (Auto) 8.9 H (0.0-7.3) % [place] # (Auto) 0.9 H (0.0-0.8) K/mm3 Heparin Anti-Xa Level (0.3-0.7) U.I./ml Potassium (3.6-5.0) mmol/L Glucose (75-100) mg/dL POC Glucose 302 H 234 H (70-105) Troponin T (0.00-0.029) ng/mL 01/08/20 Range/Units 04:39 RDW (13.2-15.2) % [place] % (Auto) (0.0-7.3) % [place] # (Auto) (0.0-0.8) K/mm3 Heparin Anti-Xa Level (0.3-0.7) U.I./ml Potassium 3.5 L (3.6-5.0) mmol/L Glucose 184 H (75-100) mg/dL POC Glucose (70-105) Troponin T 0.841 H* D (0.00-0.029) ng/mL HEART Score - HEART Score EKG: Non-specific Age: < 45 Risk factors: > 3 risk factors or hx of atherosclerotic disease Troponin: Troponin T 0.841 ng/mL (0.00-0.029) H* D 01/08/20 04:39 Troponin: < normal limit - Critical Actions Critical Actions: 4-6 pts:12-16.6% risk of adverse cardiac event. Should be admitted
[2020-01-08] MEDS ORDERED: NITROGLYCERIN 0.4 MG TAB SUBL SL PRN (07:50)
[2020-01-08] MEDS: INSULIN LISPRO 100 UNIT/ML VIAL 3 mL SUB-Q SCH ×3 (08:00→23:13)
[2020-01-08] MEDS ORDERED: CLOPIDOGREL 75 MG TAB PO SCH (10:00)
[2020-01-08] MEDS ORDERED: CHOLECALCIFEROL 125 MCG PO SCH (10:00)
[2020-01-08] MEDS ORDERED: ASPIRIN 325 MG TAB PO SCH (10:00)
[2020-01-08] MEDS ORDERED: METOPROLOL TARTRATE 50 MG TAB PO SCH (10:00)
[2020-01-08] MEDS: LISINOPRIL 20 MG TAB PO SCH (10:01)
[2020-01-08] MEDS: cloNIDine 0.2 MG TAB PO SCH ×3 (10:01→23:11)
[2020-01-08] MEDS: METOPROLOL TARTRATE 50 MG TAB PO SCH ×2 (10:01→23:11)
[2020-01-08] MEDS: amLODIPine 10 MG TAB PO SCH (10:01)
[2020-01-08] MEDS: ASPIRIN EC 81 MG TAB PO SCH (10:02)
[2020-01-08] MEDS: TICAGRELOR 90 MG TAB PO SCH ×2 (10:02→23:12)
[2020-01-08] MEDS: FAMOTIDINE 20 MG TAB PO SCH ×2 (10:02→23:12)
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
--- NOTE | 2020-01-08 11:08 | Progress Note ---
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 Thrombus occlusion of the mid-OM. Plavix was discontinued and replaced with Brilinta 90mg bid Coronary artery disease s/p PCI to RCA 04/2019 LAD thrombus treated with anticoagulation 04/2019 Abnormal ECG No acute changes this admission Hypertension Tobacco use Uncontrolled type II DM Continue current medical management including IV aggrastat for an additional 48 hours. We will plan for PCI of the OM on . Subjective Date of service: 01/08/20 Principal diagnosis: NSTEMI Interval history: Patient is resting comfortably in bed. Intravenous heparin and aggrastat continues. He denies chest pain. Objective Vital Signs Temp Pulse Pulse Pulse Resp BP Pulse Ox 01/08/20 06:55 66 142/93 01/08/20 03:50 98.4 F 60 18 160/99 97 01/08/20 02:42 65 151/101 01/07/20 23:25 98.7 F 81 18 150/93 99 01/07/20 22:20 70 141/96 01/07/20 22:19 70 141/96 01/07/20 22:00 81 79 70 18 99 01/07/20 21:45 67 134/94 01/07/20 19:02 98.6 F 67 18 134/94 97 01/07/20 16:40 98.7 F 75 18 141/94 98 01/07/20 15:15 74 100 01/07/20 15:00 63 152/97 100 01/07/20 14:45 135/96 01/07/20 14:30 70 136/97 94 01/07/20 14:19 67 128/93 98 01/07/20 14:16 68 150/110 01/07/20 13:51 150/109 01/07/20 13:45 150/109 01/07/20 13:30 154/104 01/07/20 13:15 147/114 01/07/20 13:11 67 149/116 01/07/20 13:08 97 H 149/116 01/07/20 13:00 72 149/116 87 01/07/20 12:46 155/115 01/07/20 12:37 78 164/119 01/07/20 12:33 72 151/112 10/19/20 12:30 164/119 01/07/20 12:16 151/112 01/07/20 12:12 68 156/105 95 - Physical Examination General: Appears Well, No Apparent Distress HEENT: Positive: PERRL Neck: Positive: neck supple Cardiac: Positive: Reg Rate and Rhythm Lungs: Positive: Decreased Breath Sounds Neuro: Positive: Grossly Intact Extremities: Absent: edema - Labs and Meds Cardiac Enzymes 01/05/20 01/05/20 01/05/20 Range/Units 05:20 05:20 06:56 WBC 15.6 H (4.5-11.0) K/mm3 RBC 5.16 H (3.65-5.03) M/mm3 Hgb 14.4 (11.8-15.2) gm/dl Hct 43.8 (35.5-45.6) % MCV 85 (84-94) fl MCH 28 (28-32) pg MCHC 33 (32-34) % RDW 15.7 H (13.2-15.2) % Plt Count 304 (140-440) K/mm3 Lymph % (Auto) 11.1 L (13.4-35.0) % Andrew % (Auto) 5.1 (0.0-7.3) % Eos % (Auto) 0.5 (0.0-4.3) % Baso % (Auto) 0.5 (0.0-1.8) % Lymph # (Auto) 1.7 (1.2-5.4) K/mm3 Andrew # (Auto) 0.8 (0.0-0.8) K/mm3 Eos # (Auto) 0.1 (0.0-0.4) K/mm3 Baso # (Auto) 0.1 (0.0-0.1) K/mm3 Seg Neutrophils % 82.8 H (40.0-70.0) % Seg Neutrophils # 12.9 H (1.8-7.7) K/mm3 PT (12.2-14.9) Sec. INR (0.87-1.13) APTT (24.2-36.6) Sec. D-Dimer (0-234) ng/mlDDU Heparin Anti-Xa Level (0.3-0.7) U.I./ml Sodium 137 (137-145) mmol/L Potassium 3.4 L (3.6-5.0) mmol/L Chloride 97.7 L (98-107) mmol/L Carbon Dioxide 20 L (22-30) mmol/L Anion Gap 23 mmol/L BUN 7 L (9-20) mg/dL Creatinine 0.9 (0.8-1.3) mg/dL Estimated GFR > 60 ml/min BUN/Creatinine Ratio 8 % Glucose 262 H (75-100) mg/dL POC Glucose (70-105) Hemoglobin A1c (4-6) % Calcium 8.8 (8.4-10.2) mg/dL Total Bilirubin 0.30 (0.1-1.2) mg/dL Direct Bilirubin < 0.2 (0-0.2) mg/dL Indirect Bilirubin 0.1 mg/dL ALT < 5 L (7-56) units/L Alkaline Phosphatase < 5 L (35-129) units/L Total Creatine Kinase (55-170) units/L CK-MB (CK-2) (0.0-4.0) ng/mL CK-MB (CK-2) Rel Index (0-4) Troponin T < 0.010 (0.00-0.029) ng/mL Total Protein 7.1 (6.3-8.2) g/dL Albumin < 0.2 L (3.9-5) g/dL Albumin/Globulin Ratio 0.0 % Triglycerides (2-149) mg/dL Cholesterol (50-199) mg/dL LDL Cholesterol Direct (50-130) mg/dL HDL Cholesterol (40-59) mg/dL Cholesterol/HDL Ratio % Lipase 27 (13-60) units/L Urine Color (Yellow) Urine Turbidity (Clear) Urine pH (5.0-7.0) Ur Specific [place] (1.003-1.030) Urine Protein (Negative) mg/dL Urine Glucose (UA) (Negative) mg/dL Urine Ketones (Negative) mg/dL Urine Blood (Negative) Urine Nitrite (Negative) Urine Bilirubin (Negative) Urine Urobilinogen (<2.0) mg/dL Ur Leukocyte Esterase (Negative) Urine WBC (Auto) (0.0-6.0) /HPF Urine RBC (Auto) (0.0-6.0) /HPF U Epithel Cells (Auto) (0-13.0) /HPF Urine Mucus /HPF Nasal Screen MRSA (PCR) (Negative) Urine Opiates Screen Urine Methadone Screen Ur Barbiturates Screen Ur Phencyclidine Scrn Ur Amphetamines Screen U Benzodiazepines Scrn Urine Cocaine Screen U Marijuana (THC) Screen Drugs of Abuse Note Plasma/Serum Alcohol (0-0.07) % 01/05/20 01/05/20 01/05/20 Range/Units 06:56 06:56 08:27 WBC (4.5-11.0) K/mm3 RBC (3.65-5.03) M/mm3 Hgb (11.8-15.2) gm/dl Hct (35.5-45.6) % MCV (84-94) fl MCH (28-32) pg MCHC (32-34) % RDW (13.2-15.2) % Plt Count (140-440) K/mm3 Lymph % (Auto) (13.4-35.0) % Andrew % (Auto) (0.0-7.3) % Eos % (Auto) (0.0-4.3) % Baso % (Auto) (0.0-1.8) % Lymph # (Auto) (1.2-5.4) K/mm3 Andrew # (Auto) (0.0-0.8) K/mm3 Eos # (Auto) (0.0-0.4) K/mm3 Baso # (Auto) (0.0-0.1) K/mm3 Seg Neutrophils % (40.0-70.0) % Seg Neutrophils # (1.8-7.7) K/mm3 PT 14.0 (12.2-14.9) Sec. INR 1.06 (0.87-1.13) APTT 25.7 (24.2-36.6) Sec. D-Dimer (0-234) ng/mlDDU Heparin Anti-Xa Level (0.3-0.7) U.I./ml Sodium (137-145) mmol/L Potassium (3.6-5.0) mmol/L Chloride (98-107) mmol/L Carbon Dioxide (22-30) mmol/L Anion Gap mmol/L BUN (9-20) mg/dL Creatinine (0.8-1.3) mg/dL Estimated GFR ml/min BUN/Creatinine Ratio % Glucose (75-100) mg/dL POC Glucose (70-105) Hemoglobin A1c (4-6) % Calcium (8.4-10.2) mg/dL Total Bilirubin (0.1-1.2) mg/dL Direct Bilirubin (0-0.2) mg/dL Indirect Bilirubin mg/dL ALT (7-56) units/L Alkaline Phosphatase (35-129) units/L Total Creatine Kinase (55-170) units/L CK-MB (CK-2) (0.0-4.0) ng/mL CK-MB (CK-2) Rel Index (0-4) Troponin T < 0.010 (0.00-0.029) ng/mL Total Protein (6.3-8.2) g/dL Albumin (3.9-5) g/dL Albumin/Globulin Ratio % Triglycerides (2-149) mg/dL Cholesterol (50-199) mg/dL LDL Cholesterol Direct (50-130) mg/dL HDL Cholesterol (40-59) mg/dL Cholesterol/HDL Ratio % Lipase (13-60) units/L Urine Color (Yellow) Urine Turbidity (Clear) Urine pH (5.0-7.0) Ur Specific [place] (1.003-1.030) Urine Protein (Negative) mg/dL Urine Glucose (UA) (Negative) mg/dL Urine Ketones (Negative) mg/dL Urine Blood (Negative) Urine Nitrite (Negative) Urine Bilirubin (Negative) Urine Urobilinogen (<2.0) mg/dL Ur Leukocyte Esterase (Negative) Urine WBC (Auto) (0.0-6.0) /HPF Urine RBC (Auto) (0.0-6.0) /HPF U Epithel Cells (Auto) (0-13.0) /HPF Urine Mucus /HPF Nasal Screen MRSA (PCR) (Negative) Urine Opiates Screen Urine Methadone Screen Ur Barbiturates Screen Ur Phencyclidine Scrn Ur Amphetamines Screen U Benzodiazepines Scrn Urine Cocaine Screen U Marijuana (THC) Screen Drugs of Abuse Note Plasma/Serum Alcohol 0.12 H (0-0.07) % 01/05/20 01/05/20 01/05/20 Range/Units 11:09 15:10 15:10 WBC (4.5-11.0) K/mm3 RBC (3.65-5.03) M/mm3 Hgb (11.8-15.2) gm/dl Hct (35.5-45.6) % MCV (84-94) fl MCH (28-32) pg MCHC (32-34) % RDW (13.2-15.2) % Plt Count (140-440) K/mm3 Lymph % (Auto) (13.4-35.0) % Andrew % (Auto) (0.0-7.3) % Eos % (Auto) (0.0-4.3) % Baso % (Auto) (0.0-1.8) % Lymph # (Auto) (1.2-5.4) K/mm3 Andrew # (Auto) (0.0-0.8) K/mm3 Eos # (Auto) (0.0-0.4) K/mm3 Baso # (Auto) (0.0-0.1) K/mm3 Seg Neutrophils % (40.0-70.0) % Seg Neutrophils # (1.8-7.7) K/mm3 PT (12.2-14.9) Sec. INR (0.87-1.13) APTT (24.2-36.6) Sec. D-Dimer < 135.00 (0-234) ng/mlDDU Heparin Anti-Xa Level (0.3-0.7) U.I./ml Sodium (137-145) mmol/L Potassium (3.6-5.0) mmol/L Chloride (98-107) mmol/L Carbon Dioxide (22-30) mmol/L Anion Gap mmol/L BUN (9-20) mg/dL Creatinine (0.8-1.3) mg/dL Estimated GFR ml/min BUN/Creatinine Ratio % Glucose (75-100) mg/dL POC Glucose (70-105) Hemoglobin A1c 12.6 H (4-6) % Calcium (8.4-10.2) mg/dL Total Bilirubin (0.1-1.2) mg/dL Direct Bilirubin (0-0.2) mg/dL Indirect Bilirubin mg/dL ALT (7-56) units/L Alkaline Phosphatase (35-129) units/L Total Creatine Kinase (55-170) units/L CK-MB (CK-2) (0.0-4.0) ng/mL CK-MB (CK-2) Rel Index (0-4) Troponin T 0.028 (0.00-0.029) ng/mL Total Protein (6.3-8.2) g/dL Albumin (3.9-5) g/dL Albumin/Globulin Ratio % Triglycerides (2-149) mg/dL Cholesterol (50-199) mg/dL LDL Cholesterol Direct (50-130) mg/dL HDL Cholesterol (40-59) mg/dL Cholesterol/HDL Ratio % Lipase (13-60) units/L Urine Color (Yellow) Urine Turbidity (Clear) Urine pH (5.0-7.0) Ur Specific [place] (1.003-1.030) Urine Protein (Negative) mg/dL Urine Glucose (UA) (Negative) mg/dL Urine Ketones (Negative) mg/dL Urine Blood (Negative) Urine Nitrite (Negative) Urine Bilirubin (Negative) Urine Urobilinogen (<2.0) mg/dL Ur Leukocyte Esterase (Negative) Urine WBC (Auto) (0.0-6.0) /HPF Urine RBC (Auto) (0.0-6.0) /HPF U Epithel Cells (Auto) (0-13.0) /HPF Urine Mucus /HPF Nasal Screen MRSA (PCR) (Negative) Urine Opiates Screen Urine Methadone Screen Ur Barbiturates Screen Ur Phencyclidine Scrn Ur Amphetamines Screen U Benzodiazepines Scrn Urine Cocaine Screen U Marijuana (THC) Screen Drugs of Abuse Note Plasma/Serum Alcohol (0-0.07) % 01/05/20 01/05/20 01/05/20 Range/Units 15:10 18:45 20:34 WBC (4.5-11.0) K/mm3 RBC (3.65-5.03) M/mm3 Hgb (11.8-15.2) gm/dl Hct (35.5-45.6) % MCV (84-94) fl MCH (28-32) pg MCHC (32-34) % RDW (13.2-15.2) % Plt Count (140-440) K/mm3 Lymph % (Auto) (13.4-35.0) % Andrew % (Auto) (0.0-7.3) % Eos % (Auto) (0.0-4.3) % Baso % (Auto) (0.0-1.8) % Lymph # (Auto) (1.2-5.4) K/mm3 Andrew # (Auto) (0.0-0.8) K/mm3 Eos # (Auto) (0.0-0.4) K/mm3 Baso # (Auto) (0.0-0.1) K/mm3 Seg Neutrophils % (40.0-70.0) % Seg Neutrophils # (1.8-7.7) K/mm3 PT (12.2-14.9) Sec. INR (0.87-1.13) APTT (24.2-36.6) Sec. D-Dimer (0-234) ng/mlDDU Heparin Anti-Xa Level (0.3-0.7) U.I./ml Sodium (137-145) mmol/L Potassium (3.6-5.0) mmol/L Chloride (98-107) mmol/L Carbon Dioxide (22-30) mmol/L Anion Gap mmol/L BUN (9-20) mg/dL Creatinine (0.8-1.3) mg/dL Estimated GFR ml/min BUN/Creatinine Ratio % Glucose (75-100) mg/dL POC Glucose (70-105) Hemoglobin A1c (4-6) % Calcium (8.4-10.2) mg/dL Total Bilirubin (0.1-1.2) mg/dL Direct Bilirubin (0-0.2) mg/dL Indirect Bilirubin mg/dL ALT (7-56) units/L Alkaline Phosphatase (35-129) units/L Total Creatine Kinase (55-170) units/L CK-MB (CK-2) (0.0-4.0) ng/mL CK-MB (CK-2) Rel Index (0-4) Troponin T 0.145 H* D 0.187 H* D (0.00-0.029) ng/mL Total Protein (6.3-8.2) g/dL Albumin (3.9-5) g/dL Albumin/Globulin Ratio % Triglycerides 103 (2-149) mg/dL Cholesterol 145 (50-199) mg/dL LDL Cholesterol Direct 100 (50-130) mg/dL HDL Cholesterol 33 L (40-59) mg/dL Cholesterol/HDL Ratio 4.39 % Lipase (13-60) units/L Urine Color (Yellow) Urine Turbidity (Clear) Urine pH (5.0-7.0) Ur Specific [place] (1.003-1.030) Urine Protein (Negative) mg/dL Urine Glucose (UA) (Negative) mg/dL Urine Ketones (Negative) mg/dL Urine Blood (Negative) Urine Nitrite (Negative) Urine Bilirubin (Negative) Urine Urobilinogen (<2.0) mg/dL Ur Leukocyte Esterase (Negative) Urine WBC (Auto) (0.0-6.0) /HPF Urine RBC (Auto) (0.0-6.0) /HPF U Epithel Cells (Auto) (0-13.0) /HPF Urine Mucus /HPF Nasal Screen MRSA (PCR) Negative (Negative) Urine Opiates Screen Urine Methadone Screen Ur Barbiturates Screen Ur Phencyclidine Scrn Ur Amphetamines Screen U Benzodiazepines Scrn Urine Cocaine Screen U Marijuana (THC) Screen Drugs of Abuse Note Plasma/Serum Alcohol (0-0.07) % 01/05/20 01/06/20 01/06/20 Range/Units 23:28 03:49 05:04 WBC 9.1 (4.5-11.0) K/mm3 RBC 4.78 (3.65-5.03) M/mm3 Hgb 13.5 (11.8-15.2) gm/dl Hct 40.2 (35.5-45.6) % MCV 84 (84-94) fl MCH 28 (28-32) pg MCHC 34 (32-34) % RDW 15.5 H (13.2-15.2) % Plt Count 253 (140-440) K/mm3 Lymph % (Auto) 26.5 (13.4-35.0) % Andrew % (Auto) 10.1 H (0.0-7.3) % Eos % (Auto) 1.9 (0.0-4.3) % Baso % (Auto) 0.8 (0.0-1.8) % Lymph # (Auto) 2.4 (1.2-5.4) K/mm3 Andrew # (Auto) 0.9 H (0.0-0.8) K/mm3 Eos # (Auto) 0.2 (0.0-0.4) K/mm3 Baso # (Auto) 0.1 (0.0-0.1) K/mm3 Seg Neutrophils % 60.7 (40.0-70.0) % Seg Neutrophils # 5.5 (1.8-7.7) K/mm3 PT (12.2-14.9) Sec. INR (0.87-1.13) APTT (24.2-36.6) Sec. D-Dimer (0-234) ng/mlDDU Heparin Anti-Xa Level (0.3-0.7) U.I./ml Sodium (137-145) mmol/L Potassium (3.6-5.0) mmol/L Chloride (98-107) mmol/L Carbon Dioxide (22-30) mmol/L Anion Gap mmol/L BUN (9-20) mg/dL Creatinine (0.8-1.3) mg/dL Estimated GFR ml/min BUN/Creatinine Ratio % Glucose (75-100) mg/dL POC Glucose 265 H 264 H (70-105) Hemoglobin A1c (4-6) % Calcium (8.4-10.2) mg/dL Total Bilirubin (0.1-1.2) mg/dL Direct Bilirubin (0-0.2) mg/dL Indirect Bilirubin mg/dL ALT (7-56) units/L Alkaline Phosphatase (35-129) units/L Total Creatine Kinase (55-170) units/L CK-MB (CK-2) (0.0-4.0) ng/mL CK-MB (CK-2) Rel Index (0-4) Troponin T (0.00-0.029) ng/mL Total Protein (6.3-8.2) g/dL Albumin (3.9-5) g/dL Albumin/Globulin Ratio % Triglycerides (2-149) mg/dL Cholesterol (50-199) mg/dL LDL Cholesterol Direct (50-130) mg/dL HDL Cholesterol (40-59) mg/dL Cholesterol/HDL Ratio % Lipase (13-60) units/L Urine Color (Yellow) Urine Turbidity (Clear) Urine pH (5.0-7.0) Ur Specific [place] (1.003-1.030) Urine Protein (Negative) mg/dL Urine Glucose (UA) (Negative) mg/dL Urine Ketones (Negative) mg/dL Urine Blood (Negative) Urine Nitrite (Negative) Urine Bilirubin (Negative) Urine Urobilinogen (<2.0) mg/dL Ur Leukocyte Esterase (Negative) Urine WBC (Auto) (0.0-6.0) /HPF Urine RBC (Auto) (0.0-6.0) /HPF U Epithel Cells (Auto) (0-13.0) /HPF Urine Mucus /HPF Nasal Screen MRSA (PCR) (Negative) Urine Opiates Screen Urine Methadone Screen Ur Barbiturates Screen Ur Phencyclidine Scrn Ur Amphetamines Screen U Benzodiazepines Scrn Urine Cocaine Screen U Marijuana (THC) Screen Drugs of Abuse Note Plasma/Serum Alcohol (0-0.07) % 01/06/20 01/06/20 01/06/20 Range/Units 05:04 08:16 09:38 WBC (4.5-11.0) K/mm3 RBC (3.65-5.03) M/mm3 Hgb 13.0 (11.8-15.2) gm/dl Hct 38.9 (35.5-45.6) % MCV (84-94) fl MCH (28-32) pg MCHC (32-34) % RDW (13.2-15.2) % Plt Count 245 (140-440) K/mm3 Lymph % (Auto) (13.4-35.0) % Andrew % (Auto) (0.0-7.3) % Eos % (Auto) (0.0-4.3) % Baso % (Auto) (0.0-1.8) % Lymph # (Auto) (1.2-5.4) K/mm3 Andrew # (Auto) (0.0-0.8) K/mm3 Eos # (Auto) (0.0-0.4) K/mm3 Baso # (Auto) (0.0-0.1) K/mm3 Seg Neutrophils % (40.0-70.0) % Seg Neutrophils # (1.8-7.7) K/mm3 PT (12.2-14.9) Sec. INR (0.87-1.13) APTT (24.2-36.6) Sec. D-Dimer (0-234) ng/mlDDU Heparin Anti-Xa Level (0.3-0.7) U.I./ml Sodium 135 L (137-145) mmol/L Potassium 3.6 (3.6-5.0) mmol/L Chloride 97.5 L (98-107) mmol/L Carbon Dioxide 24 (22-30) mmol/L Anion Gap 17 mmol/L BUN 8 L (9-20) mg/dL Creatinine 0.9 (0.8-1.3) mg/dL Estimated GFR > 60 ml/min BUN/Creatinine Ratio 9 % Glucose 242 H (75-100) mg/dL POC Glucose 200 H (70-105) Hemoglobin A1c (4-6) % Calcium 8.8 (8.4-10.2) mg/dL Total Bilirubin 0.40 (0.1-1.2) mg/dL Direct Bilirubin (0-0.2) mg/dL Indirect Bilirubin mg/dL ALT 25 (7-56) units/L Alkaline Phosphatase 71 (35-129) units/L Total Creatine Kinase (55-170) units/L CK-MB (CK-2) (0.0-4.0) ng/mL CK-MB (CK-2) Rel Index (0-4) Troponin T (0.00-0.029) ng/mL Total Protein 6.8 (6.3-8.2) g/dL Albumin 3.8 L (3.9-5) g/dL Albumin/Globulin Ratio 1.3 % Triglycerides (2-149) mg/dL Cholesterol (50-199) mg/dL LDL Cholesterol Direct (50-130) mg/dL HDL Cholesterol (40-59) mg/dL Cholesterol/HDL Ratio % Lipase (13-60) units/L Urine Color (Yellow) Urine Turbidity (Clear) Urine pH (5.0-7.0) Ur Specific [place] (1.003-1.030) Urine Protein (Negative) mg/dL Urine Glucose (UA) (Negative) mg/dL Urine Ketones (Negative) mg/dL Urine Blood (Negative) Urine Nitrite (Negative) Urine Bilirubin (Negative) Urine Urobilinogen (<2.0) mg/dL Ur Leukocyte Esterase (Negative) Urine WBC (Auto) (0.0-6.0) /HPF Urine RBC (Auto) (0.0-6.0) /HPF U Epithel Cells (Auto) (0-13.0) /HPF Urine Mucus /HPF Nasal Screen MRSA (PCR) (Negative) Urine Opiates Screen Urine Methadone Screen Ur Barbiturates Screen Ur Phencyclidine Scrn Ur Amphetamines Screen U Benzodiazepines Scrn Urine Cocaine Screen U Marijuana (THC) Screen Drugs of Abuse Note Plasma/Serum Alcohol (0-0.07) % 01/06/20 01/06/20 01/06/20 Range/Units 09:38 11:45 16:55 WBC (4.5-11.0) K/mm3 RBC (3.65-5.03) M/mm3 Hgb (11.8-15.2) gm/dl Hct (35.5-45.6) % MCV (84-94) fl MCH (28-32) pg MCHC (32-34) % RDW (13.2-15.2) % Plt Count (140-440) K/mm3 Lymph % (Auto) (13.4-35.0) % Andrew % (Auto) (0.0-7.3) % Eos % (Auto) (0.0-4.3) % Baso % (Auto) (0.0-1.8) % Lymph # (Auto) (1.2-5.4) K/mm3 Andrew # (Auto) (0.0-0.8) K/mm3 Eos # (Auto) (0.0-0.4) K/mm3 Baso # (Auto) (0.0-0.1) K/mm3 Seg Neutrophils % (40.0-70.0) % Seg Neutrophils # (1.8-7.7) K/mm3 PT 14.1 (12.2-14.9) Sec. INR 1.07 (0.87-1.13) APTT 31.1 (24.2-36.6) Sec. D-Dimer (0-234) ng/mlDDU Heparin Anti-Xa Level (0.3-0.7) U.I./ml Sodium (137-145) mmol/L Potassium (3.6-5.0) mmol/L Chloride (98-107) mmol/L Carbon Dioxide (22-30) mmol/L Anion Gap mmol/L BUN (9-20) mg/dL Creatinine (0.8-1.3) mg/dL Estimated GFR ml/min BUN/Creatinine Ratio % Glucose (75-100) mg/dL POC Glucose 240 H 271 H (70-105) Hemoglobin A1c (4-6) % Calcium (8.4-10.2) mg/dL Total Bilirubin (0.1-1.2) mg/dL Direct Bilirubin (0-0.2) mg/dL Indirect Bilirubin mg/dL ALT (7-56) units/L Alkaline Phosphatase (35-129) units/L Total Creatine Kinase (55-170) units/L CK-MB (CK-2) (0.0-4.0) ng/mL CK-MB (CK-2) Rel Index (0-4) Troponin T (0.00-0.029) ng/mL Total Protein (6.3-8.2) g/dL Albumin (3.9-5) g/dL Albumin/Globulin Ratio % Triglycerides (2-149) mg/dL Cholesterol (50-199) mg/dL LDL Cholesterol Direct (50-130) mg/dL HDL Cholesterol (40-59) mg/dL Cholesterol/HDL Ratio % Lipase (13-60) units/L Urine Color (Yellow) Urine Turbidity (Clear) Urine pH (5.0-7.0) Ur Specific [place] (1.003-1.030) Urine Protein (Negative) mg/dL Urine Glucose (UA) (Negative) mg/dL Urine Ketones (Negative) mg/dL Urine Blood (Negative) Urine Nitrite (Negative) Urine Bilirubin (Negative) Urine Urobilinogen (<2.0) mg/dL Ur Leukocyte Esterase (Negative) Urine WBC (Auto) (0.0-6.0) /HPF Urine RBC (Auto) (0.0-6.0) /HPF U Epithel Cells (Auto) (0-13.0) /HPF Urine Mucus /HPF Nasal Screen MRSA (PCR) (Negative) Urine Opiates Screen Urine Methadone Screen Ur Barbiturates Screen Ur Phencyclidine Scrn Ur Amphetamines Screen U Benzodiazepines Scrn Urine Cocaine Screen U Marijuana (THC) Screen Drugs of Abuse Note Plasma/Serum Alcohol (0-0.07) % 01/06/20 01/06/20 01/06/20 Range/Units 17:41 21:48 Unknown WBC (4.5-11.0) K/mm3 RBC (3.65-5.03) M/mm3 Hgb (11.8-15.2) gm/dl Hct (35.5-45.6) % MCV (84-94) fl MCH (28-32) pg MCHC (32-34) % RDW (13.2-15.2) % Plt Count (140-440) K/mm3 Lymph % (Auto) (13.4-35.0) % Andrew % (Auto) (0.0-7.3) % Eos % (Auto) (0.0-4.3) % Baso % (Auto) (0.0-1.8) % Lymph # (Auto) (1.2-5.4) K/mm3 Andrew # (Auto) (0.0-0.8) K/mm3 Eos # (Auto) (0.0-0.4) K/mm3 Baso # (Auto) (0.0-0.1) K/mm3 Seg Neutrophils % (40.0-70.0) % Seg Neutrophils # (1.8-7.7) K/mm3 PT (12.2-14.9) Sec. INR (0.87-1.13) APTT (24.2-36.6) Sec. D-Dimer (0-234) ng/mlDDU Heparin Anti-Xa Level 0.30 (0.3-0.7) U.I./ml Sodium (137-145) mmol/L Potassium (3.6-5.0) mmol/L Chloride (98-107) mmol/L Carbon Dioxide (22-30) mmol/L Anion Gap mmol/L BUN (9-20) mg/dL Creatinine (0.8-1.3) mg/dL Estimated GFR ml/min BUN/Creatinine Ratio % Glucose (75-100) mg/dL POC Glucose 284 H (70-105) Hemoglobin A1c (4-6) % Calcium (8.4-10.2) mg/dL Total Bilirubin (0.1-1.2) mg/dL Direct Bilirubin (0-0.2) mg/dL Indirect Bilirubin mg/dL ALT (7-56) units/L Alkaline Phosphatase (35-129) units/L Total Creatine Kinase (55-170) units/L CK-MB (CK-2) (0.0-4.0) ng/mL CK-MB (CK-2) Rel Index (0-4) Troponin T (0.00-0.029) ng/mL Total Protein (6.3-8.2) g/dL Albumin (3.9-5) g/dL Albumin/Globulin Ratio % Triglycerides (2-149) mg/dL Cholesterol (50-199) mg/dL LDL Cholesterol Direct (50-130) mg/dL HDL Cholesterol (40-59) mg/dL Cholesterol/HDL Ratio % Lipase (13-60) units/L Urine Color Straw (Yellow) Urine Turbidity Clear (Clear) Urine pH 6.0 (5.0-7.0) Ur Specific [place] 1.017 (1.003-1.030) Urine Protein <15 mg/dl (Negative) mg/dL Urine Glucose (UA) >=500 (Negative) mg/dL Urine Ketones Neg (Negative) mg/dL Urine Blood Neg (Negative) Urine Nitrite Neg (Negative) Urine Bilirubin Neg (Negative) Urine Urobilinogen < 2.0 (<2.0) mg/dL Ur Leukocyte Esterase Neg (Negative) Urine WBC (Auto) 1.0 (0.0-6.0) /HPF Urine RBC (Auto) 1.0 (0.0-6.0) /HPF U Epithel Cells (Auto) < 1.0 (0-13.0) /HPF Urine Mucus Few /HPF Nasal Screen MRSA (PCR) (Negative) Urine Opiates Screen Urine Methadone Screen Ur Barbiturates Screen Ur Phencyclidine Scrn Ur Amphetamines Screen U Benzodiazepines Scrn Urine Cocaine Screen U Marijuana (THC) Screen Drugs of Abuse Note Plasma/Serum Alcohol (0-0.07) % 01/06/20 01/07/20 01/07/20 Range/Units Unknown 01:05 05:07 WBC (4.5-11.0) K/mm3 RBC (3.65-5.03) M/mm3 Hgb (11.8-15.2) gm/dl Hct (35.5-45.6) % MCV (84-94) fl MCH (28-32) pg MCHC (32-34) % RDW (13.2-15.2) % Plt Count (140-440) K/mm3 Lymph % (Auto) (13.4-35.0) % Andrew % (Auto) (0.0-7.3) % Eos % (Auto) (0.0-4.3) % Baso % (Auto) (0.0-1.8) % Lymph # (Auto) (1.2-5.4) K/mm3 Andrew # (Auto) (0.0-0.8) K/mm3 Eos # (Auto) (0.0-0.4) K/mm3 Baso # (Auto) (0.0-0.1) K/mm3 Seg Neutrophils % (40.0-70.0) % Seg Neutrophils # (1.8-7.7) K/mm3 PT 13.5 (12.2-14.9) Sec. INR 1.01 (0.87-1.13) APTT 63.6 H* (24.2-36.6) Sec. D-Dimer (0-234) ng/mlDDU Heparin Anti-Xa Level 0.44 (0.3-0.7) U.I./ml Sodium (137-145) mmol/L Potassium (3.6-5.0) mmol/L Chloride (98-107) mmol/L Carbon Dioxide (22-30) mmol/L Anion Gap mmol/L BUN (9-20) mg/dL Creatinine (0.8-1.3) mg/dL Estimated GFR ml/min BUN/Creatinine Ratio % Glucose (75-100) mg/dL POC Glucose (70-105) Hemoglobin A1c (4-6) % Calcium (8.4-10.2) mg/dL Total Bilirubin (0.1-1.2) mg/dL Direct Bilirubin (0-0.2) mg/dL Indirect Bilirubin mg/dL ALT (7-56) units/L Alkaline Phosphatase (35-129) units/L Total Creatine Kinase (55-170) units/L CK-MB (CK-2) (0.0-4.0) ng/mL CK-MB (CK-2) Rel Index (0-4) Troponin T (0.00-0.029) ng/mL Total Protein (6.3-8.2) g/dL Albumin (3.9-5) g/dL Albumin/Globulin Ratio % Triglycerides (2-149) mg/dL Cholesterol (50-199) mg/dL LDL Cholesterol Direct (50-130) mg/dL HDL Cholesterol (40-59) mg/dL Cholesterol/HDL Ratio % Lipase (13-60) units/L Urine Color (Yellow) Urine Turbidity (Clear) Urine pH (5.0-7.0) Ur Specific [place] (1.003-1.030) Urine Protein (Negative) mg/dL Urine Glucose (UA) (Negative) mg/dL Urine Ketones (Negative) mg/dL Urine Blood (Negative) Urine Nitrite (Negative) Urine Bilirubin (Negative) Urine Urobilinogen (<2.0) mg/dL Ur Leukocyte Esterase (Negative) Urine WBC (Auto) (0.0-6.0) /HPF Urine RBC (Auto) (0.0-6.0) /HPF U Epithel Cells (Auto) (0-13.0) /HPF Urine Mucus /HPF Nasal Screen MRSA (PCR) (Negative) Urine Opiates Screen Presumptive negative Urine Methadone Screen Presumptive negative Ur Barbiturates Screen Presumptive negative Ur Phencyclidine Scrn Presumptive negative Ur Amphetamines Screen Presumptive negative U Benzodiazepines Scrn Presumptive negative Urine Cocaine Screen Presumptive negative U Marijuana (THC) Screen Presumptive positive Drugs of Abuse Note Disclamer Plasma/Serum Alcohol (0-0.07) % 01/07/20 01/07/20 01/07/20 Range/Units 05:07 06:48 07:48 WBC (4.5-11.0) K/mm3 RBC (3.65-5.03) M/mm3 Hgb (11.8-15.2) gm/dl Hct (35.5-45.6) % MCV (84-94) fl MCH (28-32) pg MCHC (32-34) % RDW (13.2-15.2) % Plt Count (140-440) K/mm3 Lymph % (Auto) (13.4-35.0) % Andrew % (Auto) (0.0-7.3) % Eos % (Auto) (0.0-4.3) % Baso % (Auto) (0.0-1.8) % Lymph # (Auto) (1.2-5.4) K/mm3 Andrew # (Auto) (0.0-0.8) K/mm3 Eos # (Auto) (0.0-0.4) K/mm3 Baso # (Auto) (0.0-0.1) K/mm3 Seg Neutrophils % (40.0-70.0) % Seg Neutrophils # (1.8-7.7) K/mm3 PT (12.2-14.9) Sec. INR (0.87-1.13) APTT (24.2-36.6) Sec. D-Dimer (0-234) ng/mlDDU Heparin Anti-Xa Level < 0.10 L (0.3-0.7) U.I./ml Sodium 139 (137-145) mmol/L Potassium 3.5 L (3.6-5.0) mmol/L Chloride 102.0 (98-107) mmol/L Carbon Dioxide 24 (22-30) mmol/L Anion Gap 17 mmol/L BUN 9 (9-20) mg/dL Creatinine 0.9 (0.8-1.3) mg/dL Estimated GFR > 60 ml/min BUN/Creatinine Ratio 10 % Glucose 213 H (75-100) mg/dL POC Glucose 201 H (70-105) Hemoglobin A1c (4-6) % Calcium 8.7 (8.4-10.2) mg/dL Total Bilirubin (0.1-1.2) mg/dL Direct Bilirubin (0-0.2) mg/dL Indirect Bilirubin mg/dL ALT (7-56) units/L Alkaline Phosphatase (35-129) units/L Total Creatine Kinase (55-170) units/L CK-MB (CK-2) (0.0-4.0) ng/mL CK-MB (CK-2) Rel Index (0-4) Troponin T (0.00-0.029) ng/mL Total Protein (6.3-8.2) g/dL Albumin (3.9-5) g/dL Albumin/Globulin Ratio % Triglycerides (2-149) mg/dL Cholesterol (50-199) mg/dL LDL Cholesterol Direct (50-130) mg/dL HDL Cholesterol (40-59) mg/dL Cholesterol/HDL Ratio % Lipase (13-60) units/L Urine Color (Yellow) Urine Turbidity (Clear) Urine pH (5.0-7.0) Ur Specific [place] (1.003-1.030) Urine Protein (Negative) mg/dL Urine Glucose (UA) (Negative) mg/dL Urine Ketones (Negative) mg/dL Urine Blood (Negative) Urine Nitrite (Negative) Urine Bilirubin (Negative) Urine Urobilinogen (<2.0) mg/dL Ur Leukocyte Esterase (Negative) Urine WBC (Auto) (0.0-6.0) /HPF Urine RBC (Auto) (0.0-6.0) /HPF U Epithel Cells (Auto) (0-13.0) /HPF Urine Mucus /HPF Nasal Screen MRSA (PCR) (Negative) Urine Opiates Screen Urine Methadone Screen Ur Barbiturates Screen Ur Phencyclidine Scrn Ur Amphetamines Screen U Benzodiazepines Scrn Urine Cocaine Screen U Marijuana (THC) Screen Drugs of Abuse Note Plasma/Serum Alcohol (0-0.07) % 01/07/20 01/07/20 01/07/20 Range/Units 08:02 12:52 16:59 WBC (4.5-11.0) K/mm3 RBC (3.65-5.03) M/mm3 Hgb (11.8-15.2) gm/dl Hct (35.5-45.6) % MCV (84-94) fl MCH (28-32) pg MCHC (32-34) % RDW (13.2-15.2) % Plt Count (140-440) K/mm3 Lymph % (Auto) (13.4-35.0) % Andrew % (Auto) (0.0-7.3) % Eos % (Auto) (0.0-4.3) % Baso % (Auto) (0.0-1.8) % Lymph # (Auto) (1.2-5.4) K/mm3 Andrew # (Auto) (0.0-0.8) K/mm3 Eos # (Auto) (0.0-0.4) K/mm3 Baso # (Auto) (0.0-0.1) K/mm3 Seg Neutrophils % (40.0-70.0) % Seg Neutrophils # (1.8-7.7) K/mm3 PT (12.2-14.9) Sec. INR (0.87-1.13) APTT (24.2-36.6) Sec. D-Dimer (0-234) ng/mlDDU Heparin Anti-Xa Level (0.3-0.7) U.I./ml Sodium (137-145) mmol/L Potassium (3.6-5.0) mmol/L Chloride (98-107) mmol/L Carbon Dioxide (22-30) mmol/L Anion Gap mmol/L BUN (9-20) mg/dL Creatinine (0.8-1.3) mg/dL Estimated GFR ml/min BUN/Creatinine Ratio % Glucose (75-100) mg/dL POC Glucose 201 H 216 H 302 H (70-105) Hemoglobin A1c (4-6) % Calcium (8.4-10.2) mg/dL Total Bilirubin (0.1-1.2) mg/dL Direct Bilirubin (0-0.2) mg/dL Indirect Bilirubin mg/dL ALT (7-56) units/L Alkaline Phosphatase (35-129) units/L Total Creatine Kinase (55-170) units/L CK-MB (CK-2) (0.0-4.0) ng/mL CK-MB (CK-2) Rel Index (0-4) Troponin T (0.00-0.029) ng/mL Total Protein (6.3-8.2) g/dL Albumin (3.9-5) g/dL Albumin/Globulin Ratio % Triglycerides (2-149) mg/dL Cholesterol (50-199) mg/dL LDL Cholesterol Direct (50-130) mg/dL HDL Cholesterol (40-59) mg/dL Cholesterol/HDL Ratio % Lipase (13-60) units/L Urine Color (Yellow) Urine Turbidity (Clear) Urine pH (5.0-7.0) Ur Specific [place] (1.003-1.030) Urine Protein (Negative) mg/dL Urine Glucose (UA) (Negative) mg/dL Urine Ketones (Negative) mg/dL Urine Blood (Negative) Urine Nitrite (Negative) Urine Bilirubin (Negative) Urine Urobilinogen (<2.0) mg/dL Ur Leukocyte Esterase (Negative) Urine WBC (Auto) (0.0-6.0) /HPF Urine RBC (Auto) (0.0-6.0) /HPF U Epithel Cells (Auto) (0-13.0) /HPF Urine Mucus /HPF Nasal Screen MRSA (PCR) (Negative) Urine Opiates Screen Urine Methadone Screen Ur Barbiturates Screen Ur Phencyclidine Scrn Ur Amphetamines Screen U Benzodiazepines Scrn Urine Cocaine Screen U Marijuana (THC) Screen Drugs of Abuse Note Plasma/Serum Alcohol (0-0.07) % 10/19/20 10/19/20 10/20/20 Range/Units 18:36 21:26 04:39 WBC 9.6 (4.5-11.0) K/mm3 RBC 4.35 (3.65-5.03) M/mm3 Hgb 12.0 (11.8-15.2) gm/dl Hct 36.5 (35.5-45.6) % MCV 84 (84-94) fl MCH 28 (28-32) pg MCHC 33 (32-34) % RDW 15.4 H (13.2-15.2) % Plt Count 245 (140-440) K/mm3 Lymph % (Auto) 35.0 (13.4-35.0) % Andrew % (Auto) 8.9 H (0.0-7.3) % Eos % (Auto) 2.2 (0.0-4.3) % Baso % (Auto) 0.9 (0.0-1.8) % Lymph # (Auto) 3.4 (1.2-5.4) K/mm3 Andrew # (Auto) 0.9 H (0.0-0.8) K/mm3 Eos # (Auto) 0.2 (0.0-0.4) K/mm3 Baso # (Auto) 0.1 (0.0-0.1) K/mm3 Seg Neutrophils % 53.0 (40.0-70.0) % Seg Neutrophils # 5.1 (1.8-7.7) K/mm3 PT (12.2-14.9) Sec. INR (0.87-1.13) APTT (24.2-36.6) Sec. D-Dimer (0-234) ng/mlDDU Heparin Anti-Xa Level 0.58 (0.3-0.7) U.I./ml Sodium (137-145) mmol/L Potassium (3.6-5.0) mmol/L Chloride (98-107) mmol/L Carbon Dioxide (22-30) mmol/L Anion Gap mmol/L BUN (9-20) mg/dL Creatinine (0.8-1.3) mg/dL Estimated GFR ml/min BUN/Creatinine Ratio % Glucose (75-100) mg/dL POC Glucose 234 H (70-105) Hemoglobin A1c (4-6) % Calcium (8.4-10.2) mg/dL Total Bilirubin (0.1-1.2) mg/dL Direct Bilirubin (0-0.2) mg/dL Indirect Bilirubin mg/dL ALT (7-56) units/L Alkaline Phosphatase (35-129) units/L Total Creatine Kinase (55-170) units/L CK-MB (CK-2) (0.0-4.0) ng/mL CK-MB (CK-2) Rel Index (0-4) Troponin T (0.00-0.029) ng/mL Total Protein (6.3-8.2) g/dL Albumin (3.9-5) g/dL Albumin/Globulin Ratio % Triglycerides (2-149) mg/dL Cholesterol (50-199) mg/dL LDL Cholesterol Direct (50-130) mg/dL HDL Cholesterol (40-59) mg/dL Cholesterol/HDL Ratio % Lipase (13-60) units/L Urine Color (Yellow) Urine Turbidity (Clear) Urine pH (5.0-7.0) Ur Specific [place] (1.003-1.030) Urine Protein (Negative) mg/dL Urine Glucose (UA) (Negative) mg/dL Urine Ketones (Negative) mg/dL Urine Blood (Negative) Urine Nitrite (Negative) Urine Bilirubin (Negative) Urine Urobilinogen (<2.0) mg/dL Ur Leukocyte Esterase (Negative) Urine WBC (Auto) (0.0-6.0) /HPF Urine RBC (Auto) (0.0-6.0) /HPF U Epithel Cells (Auto) (0-13.0) /HPF Urine Mucus /HPF Nasal Screen MRSA (PCR) (Negative) Urine Opiates Screen Urine Methadone Screen Ur Barbiturates Screen Ur Phencyclidine Scrn Ur Amphetamines Screen U Benzodiazepines Scrn Urine Cocaine Screen U Marijuana (THC) Screen Drugs of Abuse Note Plasma/Serum Alcohol (0-0.07) % 01/08/20 01/08/20 01/08/20 Range/Units 04:39 04:39 08:50 WBC (4.5-11.0) K/mm3 RBC (3.65-5.03) M/mm3 Hgb (11.8-15.2) gm/dl Hct (35.5-45.6) % MCV (84-94) fl MCH (28-32) pg MCHC (32-34) % RDW (13.2-15.2) % Plt Count (140-440) K/mm3 Lymph % (Auto) (13.4-35.0) % Andrew % (Auto) (0.0-7.3) % Eos % (Auto) (0.0-4.3) % Baso % (Auto) (0.0-1.8) % Lymph # (Auto) (1.2-5.4) K/mm3 Andrew # (Auto) (0.0-0.8) K/mm3 Eos # (Auto) (0.0-0.4) K/mm3 Baso # (Auto) (0.0-0.1) K/mm3 Seg Neutrophils % (40.0-70.0) % Seg Neutrophils # (1.8-7.7) K/mm3 PT (12.2-14.9) Sec. INR (0.87-1.13) APTT (24.2-36.6) Sec. D-Dimer (0-234) ng/mlDDU Heparin Anti-Xa Level 0.45 (0.3-0.7) U.I./ml Sodium 138 (137-145) mmol/L Potassium 3.5 L (3.6-5.0) mmol/L Chloride 102.0 (98-107) mmol/L Carbon Dioxide 22 (22-30) mmol/L Anion Gap 18 mmol/L BUN 14 (9-20) mg/dL Creatinine 0.9 (0.8-1.3) mg/dL Estimated GFR > 60 ml/min BUN/Creatinine Ratio 16 % Glucose 184 H (75-100) mg/dL POC Glucose 220 H (70-105) Hemoglobin A1c (4-6) % Calcium 8.6 (8.4-10.2) mg/dL Total Bilirubin (0.1-1.2) mg/dL Direct Bilirubin (0-0.2) mg/dL Indirect Bilirubin mg/dL ALT (7-56) units/L Alkaline Phosphatase (35-129) units/L Total Creatine Kinase 148 (55-170) units/L CK-MB (CK-2) 2.9 (0.0-4.0) ng/mL CK-MB (CK-2) Rel Index 1.9 (0-4) Troponin T 0.841 H* D (0.00-0.029) ng/mL Total Protein (6.3-8.2) g/dL Albumin (3.9-5) g/dL Albumin/Globulin Ratio % Triglycerides (2-149) mg/dL Cholesterol (50-199) mg/dL LDL Cholesterol Direct (50-130) mg/dL HDL Cholesterol (40-59) mg/dL Cholesterol/HDL Ratio % Lipase (13-60) units/L Urine Color (Yellow) Urine Turbidity (Clear) Urine pH (5.0-7.0) Ur Specific [place] (1.003-1.030) Urine Protein (Negative) mg/dL Urine Glucose (UA) (Negative) mg/dL Urine Ketones (Negative) mg/dL Urine Blood (Negative) Urine Nitrite (Negative) Urine Bilirubin (Negative) Urine Urobilinogen (<2.0) mg/dL Ur Leukocyte Esterase (Negative) Urine WBC (Auto) (0.0-6.0) /HPF Urine RBC (Auto) (0.0-6.0) /HPF U Epithel Cells (Auto) (0-13.0) /HPF Urine Mucus /HPF Nasal Screen MRSA (PCR) (Negative) Urine Opiates Screen Urine Methadone Screen Ur Barbiturates Screen Ur Phencyclidine Scrn Ur Amphetamines Screen U Benzodiazepines Scrn Urine Cocaine Screen U Marijuana (THC) Screen Drugs of Abuse Note Plasma/Serum Alcohol (0-0.07) % CBC 01/08/20 Range/Units 04:39 WBC 9.6 (4.5-11.0) K/mm3 RBC 4.35 (3.65-5.03) M/mm3 Hgb 12.0 (11.8-15.2) gm/dl Hct 36.5 (35.5-45.6) % Plt Count 245 (140-440) K/mm3 Lymph # (Auto) 3.4 (1.2-5.4) K/mm3 Andrew # (Auto) 0.9 H (0.0-0.8) K/mm3 Eos # (Auto) 0.2 (0.0-0.4) K/mm3 Baso # (Auto) 0.1 (0.0-0.1) K/mm3 Comprehensive Metabolic Panel 01/08/20 Range/Units 04:39 Sodium 138 (137-145) mmol/L Potassium 3.5 L (3.6-5.0) mmol/L Chloride 102.0 (98-107) mmol/L Carbon Dioxide 22 (22-30) mmol/L BUN 14 (9-20) mg/dL Creatinine 0.9 (0.8-1.3) mg/dL Glucose 184 H (75-100) mg/dL Calcium 8.6 (8.4-10.2) mg/dL
[2020-01-08] MEDS ORDERED: hydrALAZINE 25 MG TAB PO SCH (14:00)
--- NOTE | 2020-01-08 14:29 | Progress Note ---
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 Patient given Aggrastat for 48 hours and repeat on Tuesday or of this week --CAD (coronary artery disease) Current Visit: Yes Status: Chronic Qualifiers: Coronary Disease-Associated Artery/Lesion type: [place] artery [place] vs. transplanted heart: [place] heart Plan to address problem: Continue Plavix --DM2 (diabetes mellitus, type 2) Current Visit: Yes Status: Chronic Plan to address problem: Continue Lantus and coverage --Hyperlipidemia Current Visit: Yes Status: Chronic Qualifiers: Hyperlipidemia type: mixed hyperlipidemia Qualified Code(s): E78.2 - Mixed hyperlipidemia Plan to address problem: Continue statins --Tobacco abuse Current Visit: Yes Status: Chronic Qualifiers: I spent more than 10 minutes counseling patient about tobacco abuse --DVT prophylaxis Current Visit: Yes Status: Acute Plan to address problem: Patient on Aggrastat and GI prophylaxis --Discharge planning issues Current Visit: Yes Status: Acute Plan to address problem: Patient to get repeat PCI on . To continue Aggrastat till then discharge after the repeat PCI History Interval history: Patient seen and examined at bedside. Has no chest pain. Plan for PCI on asp per cardiology Hospitalist Physical - Constitutional Vitals: Temp Pulse Resp BP Pulse Ox 98.4 F 66 18 142/93 97 01/08/20 03:50 01/08/20 06:55 01/08/20 03:50 01/08/20 06:55 01/08/20 03:50 General appearance: Present: no acute distress, well-nourished, obese - EENT Eyes: Present: PERRL - Neck Neck: Present: supple, normal ROM - Respiratory Respiratory: bilateral: CTA - Cardiovascular Rhythm: regular Heart Sounds: Present: S1 & S2 - Extremities Extremities: no ischemia - Abdominal General gastrointestinal: soft, non-tender, non-distended, normal bowel sounds - Psychiatric Psychiatric: appropriate mood/affect - Neurologic Neurologic: CNII-XII intact - Allied Health Allied health notes reviewed: nursing HEART Score - HEART Score EKG: Non-specific Age: < 45 Risk factors: > 3 risk factors or hx of atherosclerotic disease Troponin: Troponin T 0.841 ng/mL (0.00-0.029) H* D 01/08/20 04:39 Troponin: < normal limit - Critical Actions Critical Actions: 4-6 pts:12-16.6% risk of adverse cardiac event. Should be admitted Results - Labs CBC & Chem 7: 01/08/20 04:39 01/08/20 04:39 Labs: Laboratory Last Values WBC 9.6 K/mm3 (4.5-11.0) 01/08/20 04:39 RBC 4.35 M/mm3 (3.65-5.03) 01/08/20 04:39 Hgb 12.0 gm/dl (11.8-15.2) 01/08/20 04:39 Hct 36.5 % (35.5-45.6) 01/08/20 04:39 MCV 84 fl (84-94) 01/08/20 04:39 MCH 28 pg (28-32) 01/08/20 04:39 MCHC 33 % (32-34) 01/08/20 04:39 RDW 15.4 % (13.2-15.2) H 01/08/20 04:39 Plt Count 245 K/mm3 (140-440) 01/08/20 04:39 Lymph % (Auto) 35.0 % (13.4-35.0) 01/08/20 04:39 Dare % (Auto) 8.9 % (0.0-7.3) H 01/08/20 04:39 Eos % (Auto) 2.2 % (0.0-4.3) 01/08/20 04:39 Baso % (Auto) 0.9 % (0.0-1.8) 01/08/20 04:39 Lymph # (Auto) 3.4 K/mm3 (1.2-5.4) 01/08/20 04:39 Dare # (Auto) 0.9 K/mm3 (0.0-0.8) H 01/08/20 04:39 Eos # (Auto) 0.2 K/mm3 (0.0-0.4) 01/08/20 04:39 Baso # (Auto) 0.1 K/mm3 (0.0-0.1) 01/08/20 04:39 Seg Neutrophils % 53.0 % (40.0-70.0) 01/08/20 04:39 Seg Neutrophils # 5.1 K/mm3 (1.8-7.7) 01/08/20 04:39 PT 13.5 Sec. (12.2-14.9) 01/07/20 05:07 INR 1.01 (0.87-1.13) 01/07/20 05:07 APTT 63.6 Sec. (24.2-36.6) H* 01/07/20 05:07 D-Dimer < 135.00 ng/mlDDU (0-234) 01/05/20 15:10 Heparin Anti-Xa Level 0.45 U.I./ml (0.3-0.7) 01/08/20 04:39 Sodium 138 mmol/L (137-145) 01/08/20 04:39 Potassium 3.5 mmol/L (3.6-5.0) L 01/08/20 04:39 Chloride 102.0 mmol/L (98-107) 01/08/20 04:39 Carbon Dioxide 22 mmol/L (22-30) 01/08/20 04:39 Anion Gap 18 mmol/L 01/08/20 04:39 BUN 14 mg/dL (9-20) 01/08/20 04:39 Creatinine 0.9 mg/dL (0.8-1.3) 01/08/20 04:39 Estimated GFR > 60 ml/min 01/08/20 04:39 BUN/Creatinine Ratio 16 % 01/08/20 04:39 Glucose 184 mg/dL (75-100) H 01/08/20 04:39 POC Glucose 220 (70-105) H 01/08/20 08:50 Hemoglobin A1c 12.6 % (4-6) H 01/05/20 15:10 Calcium 8.6 mg/dL (8.4-10.2) 01/08/20 04:39 Total Bilirubin 0.40 mg/dL (0.1-1.2) 01/06/20 05:04 Direct Bilirubin < 0.2 mg/dL (0-0.2) 01/05/20 06:56 Indirect Bilirubin 0.1 mg/dL 01/05/20 06:56 AST 71 units/L (5-40) H 01/06/20 05:04 ALT 25 units/L (7-56) 01/06/20 05:04 Alkaline Phosphatase 71 units/L (35-129) 01/06/20 05:04 Total Creatine Kinase 148 units/L (55-170) 01/08/20 04:39 CK-MB (CK-2) 2.9 ng/mL (0.0-4.0) 01/08/20 04:39 CK-MB (CK-2) Rel Index 1.9 (0-4) 01/08/20 04:39 Troponin T 0.841 ng/mL (0.00-0.029) H* D 01/08/20 04:39 Total Protein 6.8 g/dL (6.3-8.2) 01/06/20 05:04 Albumin 3.8 g/dL (3.9-5) L 01/06/20 05:04 Albumin/Globulin Ratio 1.3 % 01/06/20 05:04 Triglycerides 103 mg/dL (2-149) 01/05/20 15:10 Cholesterol 145 mg/dL (50-199) 01/05/20 15:10 LDL Cholesterol Direct 100 mg/dL (50-130) 01/05/20 15:10 HDL Cholesterol 33 mg/dL (40-59) L 01/05/20 15:10 Cholesterol/HDL Ratio 4.39 % 01/05/20 15:10 Lipase 27 units/L (13-60) 01/05/20 06:56 Urine Color Straw (Yellow) 01/06/20 Unknown Urine Turbidity Clear (Clear) 01/06/20 Unknown Urine pH 6.0 (5.0-7.0) 01/06/20 Unknown Ur Specific [place] 1.017 (1.003-1.030) 01/06/20 Unknown Urine Protein <15 mg/dl mg/dL (Negative) 01/06/20 Unknown Urine Glucose (UA) >=500 mg/dL (Negative) 01/06/20 Unknown Urine Ketones Neg mg/dL (Negative) 01/06/20 Unknown Urine Blood Neg (Negative) 01/06/20 Unknown Urine Nitrite Neg (Negative) 01/06/20 Unknown Urine Bilirubin Neg (Negative) 01/06/20 Unknown Urine Urobilinogen < 2.0 mg/dL (<2.0) 01/06/20 Unknown Ur Leukocyte Esterase Neg (Negative) 01/06/20 Unknown Urine WBC (Auto) 1.0 /HPF (0.0-6.0) 01/06/20 Unknown Urine RBC (Auto) 1.0 /HPF (0.0-6.0) 01/06/20 Unknown U Epithel Cells (Auto) < 1.0 /HPF (0-13.0) 01/06/20 Unknown Urine Mucus Few /HPF 01/06/20 Unknown Nasal Screen MRSA (PCR) Negative (Negative) 01/05/20 18:45 Urine Opiates Screen Presumptive negative 01/06/20 Unknown Urine Methadone Screen Presumptive negative 01/06/20 Unknown Ur Barbiturates Screen Presumptive negative 01/06/20 Unknown Ur Phencyclidine Scrn Presumptive negative 01/06/20 Unknown Ur Amphetamines Screen Presumptive negative 01/06/20 Unknown U Benzodiazepines Scrn Presumptive negative 01/06/20 Unknown Urine Cocaine Screen Presumptive negative 01/06/20 Unknown U Marijuana (THC) Screen Presumptive positive 01/06/20 Unknown Drugs of Abuse Note Disclamer 01/06/20 Unknown Plasma/Serum Alcohol 0.12 % (0-0.07) H 01/05/20 06:56 Microbiology: Microbiology 01/05/20 Unknown Peripheral/Venous Blood Culture - Preliminary NO GROWTH AFTER 72 HOURS 01/05/20 Unknown Peripheral/Venous Blood Culture - Preliminary NO GROWTH AFTER 72 HOURS Huggins/IV: Voiding Method Urinal IV Catheter Type [Left Hand] INT / Saline Lock IV Catheter Type [Left INT / Saline Lock Antecubital] IV Catheter Type [Right INT / Saline Lock Antecubital] Active Medications - Current Medications Current Medications: Generic Name Dose Route Start Last Admin Trade Name Freq PRN Reason Stop Dose Admin Acetaminophen 650 mg 01/05/20 14:29 Tylenol PO Q4H PRN Pain MILD(1-3)/Fever >100.5/FUNK Hydrocodone Bitart/Acetaminophen 1 each 01/07/20 12:15 Joanna 5/325 PO Q6H PRN Pain, Moderate (4-6) Amlodipine Besylate 10 mg 01/08/20 10:00 01/08/20 10:01 Amlodipine PO 10 mg DAILY ELIDA Administration Aspirin 81 mg 01/08/20 10:00 01/08/20 10:02 Halfprin Ec PO 81 mg QDAY ELIDA Administration Atorvastatin Calcium 80 mg 01/08/20 22:00 Lipitor PO QHS ELIDA Clonidine HCl 0.2 mg 01/05/20 16:00 01/08/20 10:01 Catapres PO 0.2 mg TID ELIDA Administration Famotidine 20 mg 01/05/20 22:00 01/08/20 10:02 Pepcid PO 20 mg BID ELIDA Administration Gabapentin 300 mg 01/08/20 14:00 Gabapentin PO Q8HR ELIDA Hydralazine HCl 50 mg 01/05/20 14:00 01/08/20 06:55 Apresoline PO 50 mg Q8HR ELIDA Administration Hydromorphone HCl 0.5 mg 01/05/20 14:29 Dilaudid IV Q3H PRN Pain , Severe (7-10) Heparin Sodium/Sodium Chloride 25,000 unit in 500 mls @ 20 mls/hr 01/06/20 10:00 01/08/20 06:30 Heparin/ 0.45% Nacl-25,000 Unit/500 Ml IV 1,100 units/hr TITRATE ELIDA 22 mls/hr Titration Protocol 1,000 UNITS/HR Sodium Chloride 500 mls @ 50 mls/hr 01/07/20 11:00 Nacl 0.9% 500 Ml IV DIRECT ELIDA Tirofiban/Sodium Chloride 12,500 mcg in 250 mls @ 17.82 mls/hr 01/07/20 13:00 01/07/20 22:13 Aggrastat Drip (12.5 Mg/250 Ml) IV 01/10/20 12:59 17.82 mls/hr DIRECT ELIDA Administration Protocol Per Protocol Insulin Glargine 17 units 01/08/20 22:00 Lantus SUB-Q QHS ELIDA Insulin Human Lispro 0 unit 01/06/20 03:45 01/07/20 22:45 Humalog SUB-Q 3 unit ACHS [facility] Administration Protocol Isosorbide Mononitrate 30 mg 01/07/20 13:00 01/08/20 10:01 Imdur PO 30 mg QDAY ELIDA Administration Lisinopril 20 mg 01/08/20 10:00 01/08/20 10:01 Zestril PO 20 mg QDAY ELIDA Administration Metoclopramide HCl 10 mg 01/05/20 14:29 Reglan IV Q6H PRN Nausea And Vomiting Metoprolol Tartrate 50 mg 01/05/20 22:00 01/08/20 10:01 Metoprolol PO 50 mg BID ELIDA Administration Morphine Sulfate 2 mg 01/05/20 13:56 01/06/20 06:36 Morphine IV 2 mg Q4H PRN Administration Pain, Moderate (4-6) Nitroglycerin 0.4 mg 01/08/20 07:50 Nitrostat SL Q5M PRN Chest Pain Ondansetron HCl 4 mg 01/05/20 14:29 Zofran IV Q8H PRN Nausea And Vomiting Oxycodone/Acetaminophen 1 tab 01/05/20 14:29 Percocet 5/325 PO Q6H PRN Pain, Moderate (4-6) Sodium Chloride 10 ml 01/05/20 22:00 01/08/20 10:07 Sodium Chloride Flush Syringe 10 Ml IV 10 ml BID ELIDA Administration Sodium Chloride 10 ml 01/05/20 14:29 Sodium Chloride Flush Syringe 10 Ml IV PRN PRN LINE FLUSH Ticagrelor 90 mg 01/07/20 22:00 01/08/20 10:02 Brilinta PO 90 mg BID ELIDA Administration Valsartan 160 mg 01/05/20 15:00 01/08/20 02:42 Diovan PO 160 mg Q12H ELIDA Administration
[2020-01-08] MEDS: GABAPENTIN 300 MG CAP PO SCH ×2 (14:52→23:12)
--- NOTE | 2020-01-08 15:46 | XRay Report ---
CHEST 1 VIEW INDICATION / CLINICAL INFORMATION: post pci. COMPARISON: 01/05/2020 FINDINGS: SUPPORT DEVICES: None. HEART / MEDIASTINUM: No significant abnormality. LUNGS / PLEURA: No significant pulmonary or pleural abnormality. No pneumothorax. ADDITIONAL FINDINGS: No significant additional findings. IMPRESSION: No acute disease or interval change from 01/05/2020 Signer Name: Naresh Perez MD FACR Signed: 01/08/2020 3:41 PM Workstation Name: [id number]
[2020-01-08] MEDS: HEPARIN/ 0.45% NACL DRIP 25,000 UNIT/500 ML BAG IV SCH (17:14)
[2020-01-08] MEDS: INSULIN GLARGINE 100 UNITS/ML SUB-Q SCH (23:12)
[2020-01-09 04:10] LABS: Hematocrit 34.8 % (35.5-45.6); Hemoglobin 12.1 gm/dl (11.8-15.2)
[2020-01-09] MEDS: hydrALAZINE 25 MG TAB PO SCH ×3 (05:05→22:24)
[2020-01-09] MEDS: GABAPENTIN 300 MG CAP PO SCH ×3 (05:05→22:25)
[2020-01-09] MEDS: VALSARTAN 160MG TAB PO SCH ×2 (05:05→15:03)
[2020-01-09] MEDS: INSULIN LISPRO 100 UNIT/ML VIAL 3 mL SUB-Q SCH ×4 (08:09→22:00)
[2020-01-09] MEDS: cloNIDine 0.2 MG TAB PO SCH ×3 (08:49→22:22)
--- NOTE | 2020-01-09 09:47 | Progress Note ---
Assessment and Plan NSTEMI [facility] this admission: [employer]OP[employer] of distal RCA within prior stent (beyond the rPDA). Thrombus occlusion of the mid-OM. Plavix was discontinued and replaced with Brilinta 90mg bid Coronary artery disease s/p PCI to RCA 04/2019 LAD thrombus treated with anticoagulation 04/2019 Abnormal ECG No acute changes this admission Hypertension Tobacco use Uncontrolled type II DM Continue current medical management including IV aggrastat and IV heparin. We will plan for repeat cardiac catheterization with possible intervention to the circumflex system on morning. Subjective Date of service: 01/09/20 Principal diagnosis: NSTEMI Interval history: Patient is resting comfortably in bed. Intravenous heparin and aggrastat continues. Objective Vital Signs Temp Pulse Resp BP BP Pulse Ox 01/09/20 09:16 98 01/09/20 09:14 72 01/09/20 08:03 98.2 F 72 18 160/107 98 01/09/20 05:34 56 L 01/09/20 05:05 162/111 01/09/20 04:20 98.5 F 18 162/111 01/09/20 04:19 98.5 F 70 18 167/111 97 01/08/20 23:11 98.0 F 74 16 163/102 99 01/08/20 22:00 98.3 F 79 18 166/104 99 01/08/20 21:10 96 01/08/20 19:44 74 01/08/20 19:23 98.3 F 79 18 181/109 96 01/08/20 15:39 98.2 F 68 18 147/95 100 01/08/20 11:26 98.2 F 70 18 135/83 99 - Physical Examination General: Appears Well, No Apparent Distress HEENT: Positive: PERRL Neck: Positive: neck supple Cardiac: Positive: Reg Rate and Rhythm Neuro: Positive: Grossly Intact Extremities: Absent: edema - Labs and Meds CBC 01/09/20 Range/Units 03:58 Hgb 12.1 (11.8-15.2) gm/dl Hct 34.8 L (35.5-45.6) % Plt Count 235 (140-440) K/mm3
[2020-01-09] MEDS: TIROFIBAN/NS 12,500 MCG/250 ML BAG IV SCH (11:01)
[2020-01-09] MEDS: HEPARIN/ 0.45% NACL DRIP 25,000 UNIT/500 ML BAG IV SCH (11:02)
[2020-01-09] MEDS: TICAGRELOR 90 MG TAB PO SCH ×2 (11:05→22:24)
[2020-01-09] MEDS: ASPIRIN EC 81 MG TAB PO SCH (11:05)
[2020-01-09] MEDS: METOPROLOL TARTRATE 50 MG TAB PO SCH ×2 (11:05→22:25)
[2020-01-09] MEDS: amLODIPine 10 MG TAB PO SCH (11:05)
[2020-01-09] MEDS: LISINOPRIL 20 MG TAB PO SCH (11:06)
[2020-01-09] MEDS: FAMOTIDINE 20 MG TAB PO SCH ×2 (11:06→22:18)
--- NOTE | 2020-01-09 16:14 | Progress Note ---
Assessment and Plan Assessment and plan: - Patient Problems -- NSTEMI (non-ST elevated myocardial infarction) Current Visit: Yes Status: Acute Plan to address problem: Cardiac cath report showed multivessel coronary artery disease with occlusive restenosis of the chronic total occlusion of the distal right coronary artery stent not suitable for revascularization Occlusive thrombosis of the mid and distal segments of the mid obtuse marginal branch Mild left ventricular systolic dysfunction with an ejection fraction of 45 to 50% recommendations the patient will be considered for coronary intervention to the mid obtuse marginal branch after 48 hours of optimal anticoagulant and antiplatelet therapy this will hopefully reduce thrombus burden which extends into small caliber distal segments of the mid obtuse marginal. Plan for PCI tomorrow --CAD (coronary artery disease) Current Visit: Yes Status: Chronic Qualifiers: Coronary Disease-Associated Artery/Lesion type: [place] artery [place] vs. transplanted heart: [place] heart Plan to address problem: Continue Plavix --DM2 (diabetes mellitus, type 2) Current Visit: Yes Status: Chronic Plan to address problem: Continue Lantus and coverage --Hyperlipidemia Current Visit: Yes Status: Chronic Qualifiers: Hyperlipidemia type: mixed hyperlipidemia Qualified Code(s): E78.2 - Mixed hyperlipidemia Plan to address problem: Continue statins --Tobacco abuse Current Visit: Yes Status: Chronic Qualifiers: I spent more than 10 minutes counseling patient about tobacco abuse --DVT prophylaxis Current Visit: Yes Status: Acute Plan to address problem: Patient on Aggrastat and GI prophylaxis --Discharge planning issues Current Visit: Yes Status: Acute Plan to address problem: Patient to get repeat PCI on . To continue Aggrastat till then discharge after the repeat PCI History Interval history: Patient seen and examined at bedside. Has no chest pain. Plan for PCI on as per cardiology Hospitalist Physical - Constitutional Vitals: Temp Pulse Resp BP Pulse Ox 98.1 F 70 20 140/94 99 01/09/20 12:50 01/09/20 15:03 01/09/20 14:55 01/09/20 15:03 01/09/20 12:50 General appearance: Present: no acute distress, well-nourished, obese - EENT Eyes: Present: PERRL - Respiratory Respiratory: bilateral: CTA - Cardiovascular Heart Sounds: Present: S1 & S2 - Extremities Extremities: no ischemia - Abdominal General gastrointestinal: soft, non-tender, non-distended, normal bowel sounds - Psychiatric Psychiatric: appropriate mood/affect - Neurologic Neurologic: CNII-XII intact HEART Score - HEART Score EKG: Non-specific Age: < 45 Risk factors: > 3 risk factors or hx of atherosclerotic disease Troponin: Troponin T 0.841 ng/mL (0.00-0.029) H* D 01/08/20 04:39 Troponin: < normal limit - Critical Actions Critical Actions: 4-6 pts:12-16.6% risk of adverse cardiac event. Should be admitted Results - Labs CBC & Chem 7: 01/09/20 03:58 01/08/20 04:39 Labs: Laboratory Last Values WBC 9.6 K/mm3 (4.5-11.0) 01/08/20 04:39 RBC 4.35 M/mm3 (3.65-5.03) 01/08/20 04:39 Hgb 12.1 gm/dl (11.8-15.2) 01/09/20 03:58 Hct 34.8 % (35.5-45.6) L 01/09/20 03:58 MCV 84 fl (84-94) 01/08/20 04:39 MCH 28 pg (28-32) 01/08/20 04:39 MCHC 33 % (32-34) 01/08/20 04:39 RDW 15.4 % (13.2-15.2) H 01/08/20 04:39 Plt Count 235 K/mm3 (140-440) 01/09/20 03:58 Lymph % (Auto) 35.0 % (13.4-35.0) 01/08/20 04:39 Gordon % (Auto) 8.9 % (0.0-7.3) H 01/08/20 04:39 Eos % (Auto) 2.2 % (0.0-4.3) 01/08/20 04:39 Baso % (Auto) 0.9 % (0.0-1.8) 01/08/20 04:39 Lymph # (Auto) 3.4 K/mm3 (1.2-5.4) 01/08/20 04:39 Gordon # (Auto) 0.9 K/mm3 (0.0-0.8) H 01/08/20 04:39 Eos # (Auto) 0.2 K/mm3 (0.0-0.4) 01/08/20 04:39 Baso # (Auto) 0.1 K/mm3 (0.0-0.1) 01/08/20 04:39 Seg Neutrophils % 53.0 % (40.0-70.0) 01/08/20 04:39 Seg Neutrophils # 5.1 K/mm3 (1.8-7.7) 01/08/20 04:39 PT 13.5 Sec. (12.2-14.9) 01/07/20 05:07 INR 1.01 (0.87-1.13) 01/07/20 05:07 APTT 63.6 Sec. (24.2-36.6) H* 01/07/20 05:07 D-Dimer < 135.00 ng/mlDDU (0-234) 01/05/20 15:10 Heparin Anti-Xa Level 0.30 U.I./ml (0.3-0.7) 01/08/20 23:29 Sodium 138 mmol/L (137-145) 01/08/20 04:39 Potassium 3.5 mmol/L (3.6-5.0) L 01/08/20 04:39 Chloride 102.0 mmol/L (98-107) 01/08/20 04:39 Carbon Dioxide 22 mmol/L (22-30) 01/08/20 04:39 Anion Gap 18 mmol/L 01/08/20 04:39 BUN 14 mg/dL (9-20) 01/08/20 04:39 Creatinine 0.9 mg/dL (0.8-1.3) 01/08/20 04:39 Estimated GFR > 60 ml/min 01/08/20 04:39 BUN/Creatinine Ratio 16 % 01/08/20 04:39 Glucose 184 mg/dL (75-100) H 01/08/20 04:39 POC Glucose 181 mg/dL (70-105) H 01/09/20 08:22 Hemoglobin A1c 12.6 % (4-6) H 01/05/20 15:10 Calcium 8.6 mg/dL (8.4-10.2) 01/08/20 04:39 Total Bilirubin 0.40 mg/dL (0.1-1.2) 01/06/20 05:04 Direct Bilirubin < 0.2 mg/dL (0-0.2) 01/05/20 06:56 Indirect Bilirubin 0.1 mg/dL 01/05/20 06:56 AST 71 units/L (5-40) H 01/06/20 05:04 ALT 25 units/L (7-56) 01/06/20 05:04 Alkaline Phosphatase 71 units/L (35-129) 01/06/20 05:04 Total Creatine Kinase 148 units/L (55-170) 01/08/20 04:39 CK-MB (CK-2) 2.9 ng/mL (0.0-4.0) 01/08/20 04:39 CK-MB (CK-2) Rel Index 1.9 (0-4) 01/08/20 04:39 Troponin T 0.841 ng/mL (0.00-0.029) H* D 01/08/20 04:39 Total Protein 6.8 g/dL (6.3-8.2) 01/06/20 05:04 Albumin 3.8 g/dL (3.9-5) L 01/06/20 05:04 Albumin/Globulin Ratio 1.3 % 01/06/20 05:04 Triglycerides 103 mg/dL (2-149) 01/05/20 15:10 Cholesterol 145 mg/dL (50-199) 01/05/20 15:10 LDL Cholesterol Direct 100 mg/dL (50-130) 01/05/20 15:10 HDL Cholesterol 33 mg/dL (40-59) L 01/05/20 15:10 Cholesterol/HDL Ratio 4.39 % 01/05/20 15:10 Lipase 27 units/L (13-60) 01/05/20 06:56 Urine Color Straw (Yellow) 01/06/20 Unknown Urine Turbidity Clear (Clear) 01/06/20 Unknown Urine pH 6.0 (5.0-7.0) 01/06/20 Unknown Ur Specific [place] 1.017 (1.003-1.030) 01/06/20 Unknown Urine Protein <15 mg/dl mg/dL (Negative) 01/06/20 Unknown Urine Glucose (UA) >=500 mg/dL (Negative) 01/06/20 Unknown Urine Ketones Neg mg/dL (Negative) 01/06/20 Unknown Urine Blood Neg (Negative) 01/06/20 Unknown Urine Nitrite Neg (Negative) 01/06/20 Unknown Urine Bilirubin Neg (Negative) 01/06/20 Unknown Urine Urobilinogen < 2.0 mg/dL (<2.0) 01/06/20 Unknown Ur Leukocyte Esterase Neg (Negative) 01/06/20 Unknown Urine WBC (Auto) 1.0 /HPF (0.0-6.0) 01/06/20 Unknown Urine RBC (Auto) 1.0 /HPF (0.0-6.0) 01/06/20 Unknown U Epithel Cells (Auto) < 1.0 /HPF (0-13.0) 01/06/20 Unknown Urine Mucus Few /HPF 01/06/20 Unknown Nasal Screen MRSA (PCR) Negative (Negative) 01/05/20 18:45 Urine Opiates Screen Presumptive negative 01/06/20 Unknown Urine Methadone Screen Presumptive negative 01/06/20 Unknown Ur Barbiturates Screen Presumptive negative 01/06/20 Unknown Ur Phencyclidine Scrn Presumptive negative 01/06/20 Unknown Ur Amphetamines Screen Presumptive negative 01/06/20 Unknown U Benzodiazepines Scrn Presumptive negative 01/06/20 Unknown Urine Cocaine Screen Presumptive negative 01/06/20 Unknown U Marijuana (THC) Screen Presumptive positive 01/06/20 Unknown Drugs of Abuse Note Disclamer 01/06/20 Unknown Plasma/Serum Alcohol 0.12 % (0-0.07) H 01/05/20 06:56 Microbiology: Microbiology 01/05/20 Unknown Peripheral/Venous Blood Culture - Preliminary NO GROWTH AFTER 4 DAYS 01/05/20 Unknown Peripheral/Venous Blood Culture - Preliminary NO GROWTH AFTER 4 DAYS Huggins/IV: Voiding Method Urinal IV Catheter Type [Left Hand] INT / Saline Lock IV Catheter Type [Left INT / Saline Lock Antecubital] IV Catheter Type [Right INT / Saline Lock Antecubital] Active Medications - Current Medications Current Medications: Generic Name Dose Route Start Last Admin Trade Name Freq PRN Reason Stop Dose Admin Acetaminophen 650 mg 01/05/20 14:29 Tylenol PO Q4H PRN Pain MILD(1-3)/Fever >100.5/FUNK Hydrocodone Bitart/Acetaminophen 1 each 01/07/20 12:15 [place] 5/325 PO Q6H PRN Pain, Moderate (4-6) Amlodipine Besylate 10 mg 01/08/20 10:00 01/09/20 11:05 Amlodipine PO 10 mg DAILY ELIDA Administration Aspirin 81 mg 01/08/20 10:00 01/09/20 11:05 Halfprin Ec PO 81 mg QDAY ELIDA Administration Atorvastatin Calcium 80 mg 01/08/20 22:00 01/08/20 23:12 Lipitor PO 80 mg QHS ELIDA Administration Clonidine HCl 0.2 mg 01/05/20 16:00 01/09/20 15:03 Catapres PO 0.2 mg TID ELIDA Administration Famotidine 20 mg 01/05/20 22:00 01/09/20 11:06 Pepcid PO 20 mg BID ELIDA Administration Gabapentin 300 mg 01/08/20 14:00 01/09/20 15:04 Gabapentin PO 300 mg Q8HR ELIDA Administration Hydralazine HCl 50 mg 01/05/20 14:00 01/09/20 15:03 Apresoline PO 50 mg Q8HR ELIDA Administration Hydromorphone HCl 0.5 mg 01/05/20 14:29 Dilaudid IV Q3H PRN Pain , Severe (7-10) Heparin Sodium/Sodium Chloride 25,000 unit in 500 mls @ 20 mls/hr 01/06/20 10:00 01/09/20 11:02 Heparin/ 0.45% Nacl-25,000 Unit/500 Ml IV 1,100 units/hr TITRATE ELIDA 22 mls/hr Administration Protocol 1,000 UNITS/HR Sodium Chloride 500 mls @ 50 mls/hr 01/07/20 11:00 Nacl 0.9% 500 Ml IV DIRECT ELIDA Tirofiban/Sodium Chloride 12,500 mcg in 250 mls @ 17.82 mls/hr 01/07/20 13:00 01/09/20 11:01 Aggrastat Drip (12.5 Mg/250 Ml) IV 01/10/20 12:59 17.82 mls/hr DIRECT ELIDA Administration Protocol Per Protocol Insulin Glargine 17 units 01/08/20 22:00 01/08/20 23:12 Lantus SUB-Q 17 units QHS ELIDA Administration Insulin Human Lispro 0 unit 01/06/20 03:45 01/08/20 23:13 Humalog SUB-Q 2 unit ACHS ELIDA Administration Protocol Isosorbide Mononitrate 30 mg 01/07/20 13:00 01/09/20 11:05 Imdur PO 30 mg QDAY ELIDA Administration Lisinopril 20 mg 01/08/20 10:00 01/09/20 11:06 Zestril PO 20 mg QDAY ELIDA Administration Metoclopramide HCl 10 mg 01/05/20 14:29 Reglan IV Q6H PRN Nausea And Vomiting Metoprolol Tartrate 50 mg 01/05/20 22:00 01/09/20 11:05 Metoprolol PO 50 mg BID ELIDA Administration Morphine Sulfate 2 mg 01/05/20 13:56 01/06/20 06:36 Morphine IV 2 mg Q4H PRN Administration Pain, Moderate (4-6) Nitroglycerin 0.4 mg 01/08/20 07:50 Nitrostat SL Q5M PRN Chest Pain Ondansetron HCl 4 mg 01/05/20 14:29 Zofran IV Q8H PRN Nausea And Vomiting Oxycodone/Acetaminophen 1 tab 01/05/20 14:29 Percocet 5/325 PO Q6H PRN Pain, Moderate (4-6) Sodium Chloride 10 ml 01/05/20 22:00 01/08/20 23:13 Sodium Chloride Flush Syringe 10 Ml IV 10 ml BID ELIDA Administration Sodium Chloride 10 ml 01/05/20 14:29 Sodium Chloride Flush Syringe 10 Ml IV PRN PRN LINE FLUSH Ticagrelor 90 mg 01/07/20 22:00 01/09/20 11:05 Brilinta PO 90 mg BID ELIDA Administration Valsartan 160 mg 01/05/20 15:00 01/09/20 15:03 Diovan PO 160 mg Q12H ELIDA Administration
[2020-01-09] MEDS: INSULIN GLARGINE 100 UNITS/ML SUB-Q SCH (22:26)
[2020-01-10] MEDS: TIROFIBAN/NS 12,500 MCG/250 ML BAG IV SCH (00:32)
[2020-01-10] MEDS: VALSARTAN 160MG TAB PO SCH ×2 (03:00→17:57)
[2020-01-10 04:20] LABS: Basophils # (Auto) 0.1 K/mm3 (0.0-0.1); Basophils % (Auto) 1.1 % (0.0-1.8); Eosinophils # (Auto) 0.2 K/mm3 (0.0-0.4); Eosinophils % (Auto) 3.2 % (0.0-4.3); Hematocrit 37.4 % (35.5-45.6); Hemoglobin 12.8 gm/dl (11.8-15.2); Lymphocytes # (Auto) 2.4 K/mm3 (1.2-5.4); Mean Corpuscular HGB Conc 34 % (32-34); Mean Corpuscular Volume 84 fl (84-94); Monocytes # (Auto) 0.7 K/mm3 (0.0-0.8); Monocytes % (Auto) 9.8 % (0.0-7.3); Platelet Count 252 K/mm3 (140-440); Red Blood Count 4.46 M/mm3 (3.65-5.03); Red Cell Distribution Width 15.2 % (13.2-15.2)
[2020-01-10 04:27] LABS: INR 1.01 (0.87-1.13)
[2020-01-10 04:42] LABS: BUN/Creatinine Ratio 10; Blood Urea Nitrogen 9 mg/dL (9-20); Calcium 9.2 mg/dL (8.4-10.2); Hemolysis Index 1
[2020-01-10] MEDS: cloNIDine 0.2 MG TAB PO SCH ×3 (09:48→22:12)
[2020-01-10] MEDS: LISINOPRIL 20 MG TAB PO SCH (09:48)
[2020-01-10] MEDS: ASPIRIN EC 81 MG TAB PO SCH (09:48)
[2020-01-10] MEDS: FAMOTIDINE 20 MG TAB PO SCH ×2 (09:49→22:07)
[2020-01-10] MEDS: METOPROLOL TARTRATE 50 MG TAB PO SCH ×2 (09:49→22:08)
[2020-01-10] MEDS: amLODIPine 10 MG TAB PO SCH (09:50)
[2020-01-10] MEDS: TICAGRELOR 90 MG TAB PO SCH ×2 (10:00→22:08)
[2020-01-10] MEDS: INSULIN LISPRO 100 UNIT/ML VIAL 3 mL SUB-Q SCH ×4 (10:01→22:24)
[2020-01-10] MEDS ORDERED: SODIUM CHLORIDE 0.9% 500 ML 500 ML ONE (10:11)
[2020-01-10] MEDS ORDERED: HYDROCORTISONE SOD SUCC 100 MG/2 ML VIAL ONE (11:07)
[2020-01-10] MEDS ORDERED: diphenhydrAMINE 50 MG/ML VIAL ONE (11:07)
[2020-01-10] MEDS ORDERED: diphenhydrAMINE 50 MG/ML VIAL IV ONE (11:10)
[2020-01-10] MEDS ORDERED: HYDROCORTISONE SOD SUCC 100 MG/2 ML VIAL IV ONE (11:12)
[2020-01-10] MEDS ORDERED: MIDAZOLAM 2 MG/2 ML INJ ONE (11:46)
[2020-01-10] MEDS ORDERED: fentaNYL 100 MCG/2 ML INJ ONE (11:47)
[2020-01-10] MEDS ORDERED: HEPARIN/NS 5000 UNIT/500ML 1,000 ML IR ONE (11:47)
[2020-01-10] MEDS ORDERED: LIDOCAINE (2%) 20 MG/1 ML VIAL 20 ML MDV INFILTRATI ONE (11:47)
[2020-01-10] MEDS ORDERED: VERAPAMIL 5 MG/2 ML INJ ONE (11:47)
[2020-01-10] MEDS ORDERED: NITROGLYCERIN SYRINGE 3 ML ONE (11:48)
[2020-01-10] MEDS: HEPARIN 10,000 UNITS/10 ML VIAL ONE ×2 (11:57→12:03)
[2020-01-10] MEDS ORDERED: HYDROcodone/ACETAMINOPHEN 5-325 MG TAB PO PRN (12:46)
--- NOTE | 2020-01-10 12:54 | Event Note ---
Date: 01/10/20 We performed a cardiac catheterization via the right radial approach, no complications. On repeat angiography, we found the occlusive thrombus in the mid obtuse marginal to have resolved substantially. Due to residual mild thrombus with an associated lesional segment, we deployed a 2.5 x 15 mm drug- eluting stent, with an excellent angiographic result, 0 residual stenosis, EDER- 3 flow, no complications. We will stop heparin and Aggrastat, continue baby aspirin and Brilinta. The patient will be stable for cardiac discharge tomorrow. I have discontinued lisinopril, since this is contraindicated in the presence of concomitant treatment with valsartan.
--- NOTE | 2020-01-10 12:57 | Cardiac Catherization Report ---
CORONARY ANGIOPLASTY REPORT REASON FOR PROCEDURE: The patient is a 39-year-old man admitted with a non-ST elevation myocardial infarction. A cardiac catheterization revealed extensive and occlusive thrombus in the mid obtuse marginal branch of the circumflex artery. The patient was placed on intravenous Aggrastat and heparin, and returns to the cardiac catheterization laboratory today for repeat angiogram and possible intervention. PROCEDURES: 1. Left heart catheterization. 2. Selective angiography of the left coronary system. 3. Coronary stent placement in the circumflex artery. 4. Sedation time, start 11:54, end 12:13. DESCRIPTION OF PROCEDURE: The patient was prepped and draped in a sterile fashion after informed consent. The right radial cath site was prepped and draped after a negative Arturo's test. The right radial artery was entered using Seldinger technique followed by placement of a 6-[place] hydrophilic sheath. Routine radial cocktail was administered via the sheath. We selected a #3.0 XB guiding catheter and advanced to the left coronary ostium. Pre-intervention angiograms were taken. Angiograms revealed significant recanalization of the mid obtuse marginal branch, with residual linear filling defect consistent with a residual thrombus. CORONARY INTERVENTION: We then directed a 0.014 inch [employer] 50 guidewire into the vessel across the lesional segment. In a primary stenting maneuver, we deployed a 2.5 x 15 mm Xience drug-eluting stent across the lesional segment, deploying the stent optimal pressures. Following stenting, there was an excellent angiographic result, EDER 3 flow, no residual lesion within the treated segment. Procedure was well tolerated by the patient and there were no complications. CONCLUSION: Successful angioplasty and stenting of the mid obtuse marginal branch of the circumflex artery, with successful deployment of a 2.5 x 15 mm drug-eluting stent. JOB# [id number] CA/NTS
[2020-01-10] MEDS: hydrALAZINE 25 MG TAB PO SCH ×3 (13:10→22:07)
[2020-01-10] MEDS: GABAPENTIN 300 MG CAP PO SCH ×3 (13:10→22:11)
--- NOTE | 2020-01-10 13:49 | Progress Note ---
Assessment and Plan Assessment and plan: - Patient Problems -- NSTEMI (non-ST elevated myocardial infarction) Current Visit: Yes Status: Acute Plan to address problem: Cardiac cath report showed multivessel coronary artery disease with occlusive restenosis of the chronic total occlusion of the distal right coronary artery stent not suitable for revascularization Occlusive thrombosis of the mid and distal segments of the mid obtuse marginal branch Mild left ventricular systolic dysfunction with an ejection fraction of 45 to 50% recommendations the patient will be considered for coronary intervention to the mid obtuse marginal branch after 48 hours of optimal anticoagulant and antiplatelet therapy this will hopefully reduce thrombus burden which extends into small caliber distal segments of the mid obtuse marginal. s/p PCI with drug eluting stent on 01/09 --CAD (coronary artery disease) Current Visit: Yes Status: Chronic Qualifiers: Coronary Disease-Associated Artery/Lesion type: [place] artery [place] vs. transplanted heart: [place] heart Plan to address problem: Continue Plavix --DM2 (diabetes mellitus, type 2) Current Visit: Yes Status: Chronic Plan to address problem: Continue Lantus and coverage --Hyperlipidemia Current Visit: Yes Status: Chronic Qualifiers: Hyperlipidemia type: mixed hyperlipidemia Qualified Code(s): E78.2 - Mixed hyperlipidemia Plan to address problem: Continue statins --Tobacco abuse Current Visit: Yes Status: Chronic Qualifiers: I spent more than 10 minutes counseling patient about tobacco abuse --DVT prophylaxis Current Visit: Yes Status: Acute Plan to address problem: Patient on Aggrastat and GI prophylaxis --Discharge planning issues Current Visit: Yes Status: Acute Plan to address problem: DC tomorrow if he remains stable History Interval history: Patient seen and examined at bedside. Has no chest pain. Plan for PCI today Hospitalist Physical - Physical exam Narrative exam: VITAL SIGNS: Reviewed. GENERAL: Awake and alert on response to questions HEAD: No signs of head trauma. EYES: Pupils are equal. Extraocular motions intact. EARS: Hearing grossly intact. MOUTH: Oropharynx is normal. NECK: No adenopathy, no JVD. CHEST: Chest with diminished breath sounds bilaterally. No wheezes, rales, or rhonchi. CARDIAC: Regular rate and rhythm. S1 and S2, without murmurs, gallops, or rubs. VASCULAR: No Edema. Peripheral pulses normal and equal in all extremities. ABDOMEN: Soft, non tender and non distended. No rebound or guarding, and no masses palpated. Bowel Sounds normal. MUSCULOSKELETAL: Good range of motion of all major joints. Extremities without clubbing, cyanosis or edema. NEUROLOGIC EXAM: Alert and oriented x3. No focal neurologic deficits PSYCHIATRIC: Stable mood SKIN: No obvious lesions - Constitutional Vitals: Temp Pulse Resp BP Pulse Ox 97.7 F 61 18 151/100 97 01/10/20 09:54 01/10/20 13:10 01/10/20 09:54 01/10/20 13:10 01/10/20 09:54 HEART Score - HEART Score EKG: Non-specific Age: < 45 Risk factors: > 3 risk factors or hx of atherosclerotic disease Troponin: Troponin T 0.841 ng/mL (0.00-0.029) H* D 01/08/20 04:39 Troponin: < normal limit - Critical Actions Critical Actions: 4-6 pts:12-16.6% risk of adverse cardiac event. Should be admitted Results - Labs CBC & Chem 7: 01/10/20 03:51 01/10/20 03:51 Labs: Laboratory Last Values WBC 7.2 K/mm3 (4.5-11.0) 01/10/20 03:51 RBC 4.46 M/mm3 (3.65-5.03) 01/10/20 03:51 Hgb 12.8 gm/dl (11.8-15.2) 01/10/20 03:51 Hct 37.4 % (35.5-45.6) 01/10/20 03:51 MCV 84 fl (84-94) 01/10/20 03:51 MCH 29 pg (28-32) 01/10/20 03:51 MCHC 34 % (32-34) 01/10/20 03:51 RDW 15.2 % (13.2-15.2) 01/10/20 03:51 Plt Count 252 K/mm3 (140-440) 01/10/20 03:51 Lymph % (Auto) 33.0 % (13.4-35.0) 01/10/20 03:51 [place] % (Auto) 9.8 % (0.0-7.3) H 01/10/20 03:51 Eos % (Auto) 3.2 % (0.0-4.3) 01/10/20 03:51 Baso % (Auto) 1.1 % (0.0-1.8) 01/10/20 03:51 Lymph # (Auto) 2.4 K/mm3 (1.2-5.4) 01/10/20 03:51 [place] # (Auto) 0.7 K/mm3 (0.0-0.8) 01/10/20 03:51 Eos # (Auto) 0.2 K/mm3 (0.0-0.4) 01/10/20 03:51 Baso # (Auto) 0.1 K/mm3 (0.0-0.1) 01/10/20 03:51 Seg Neutrophils % 52.9 % (40.0-70.0) 01/10/20 03:51 Seg Neutrophils # 3.8 K/mm3 (1.8-7.7) 01/10/20 03:51 PT 13.5 Sec. (12.2-14.9) 01/10/20 03:51 INR 1.01 (0.87-1.13) 01/10/20 03:51 APTT 63.6 Sec. (24.2-36.6) H* 01/07/20 05:07 D-Dimer < 135.00 ng/mlDDU (0-234) 01/05/20 15:10 Heparin Anti-Xa Level < 0.10 U.I./ml (0.3-0.7) L 01/10/20 03:51 Sodium 140 mmol/L (137-145) 01/10/20 03:51 Potassium 4.3 mmol/L (3.6-5.0) D 01/10/20 03:51 Chloride 101.3 mmol/L (98-107) 01/10/20 03:51 Carbon Dioxide 28 mmol/L (22-30) 01/10/20 03:51 Anion Gap 15 mmol/L 01/10/20 03:51 BUN 9 mg/dL (9-20) 01/10/20 03:51 Creatinine 0.9 mg/dL (0.8-1.3) 01/10/20 03:51 Estimated GFR > 60 ml/min 01/10/20 03:51 BUN/Creatinine Ratio 10 % 01/10/20 03:51 Glucose 224 mg/dL (75-100) H 01/10/20 03:51 POC Glucose 189 mg/dL (70-105) H 01/10/20 13:20 Hemoglobin A1c 12.6 % (4-6) H 01/05/20 15:10 Calcium 9.2 mg/dL (8.4-10.2) 01/10/20 03:51 Total Bilirubin 0.40 mg/dL (0.1-1.2) 01/06/20 05:04 Direct Bilirubin < 0.2 mg/dL (0-0.2) 01/05/20 06:56 Indirect Bilirubin 0.1 mg/dL 01/05/20 06:56 AST 71 units/L (5-40) H 01/06/20 05:04 ALT 25 units/L (7-56) 01/06/20 05:04 Alkaline Phosphatase 71 units/L (35-129) 01/06/20 05:04 Total Creatine Kinase 148 units/L (55-170) 01/08/20 04:39 CK-MB (CK-2) 2.9 ng/mL (0.0-4.0) 01/08/20 04:39 CK-MB (CK-2) Rel Index 1.9 (0-4) 01/08/20 04:39 Troponin T 0.841 ng/mL (0.00-0.029) H* D 01/08/20 04:39 Total Protein 6.8 g/dL (6.3-8.2) 01/06/20 05:04 Albumin 3.8 g/dL (3.9-5) L 01/06/20 05:04 Albumin/Globulin Ratio 1.3 % 01/06/20 05:04 Triglycerides 103 mg/dL (2-149) 01/05/20 15:10 Cholesterol 145 mg/dL (50-199) 01/05/20 15:10 LDL Cholesterol Direct 100 mg/dL (50-130) 01/05/20 15:10 HDL Cholesterol 33 mg/dL (40-59) L 01/05/20 15:10 Cholesterol/HDL Ratio 4.39 % 01/05/20 15:10 Lipase 27 units/L (13-60) 01/05/20 06:56 Urine Color Straw (Yellow) 01/06/20 Unknown Urine Turbidity Clear (Clear) 01/06/20 Unknown Urine pH 6.0 (5.0-7.0) 01/06/20 Unknown Ur Specific [place] 1.017 (1.003-1.030) 01/06/20 Unknown Urine Protein <15 mg/dl mg/dL (Negative) 01/06/20 Unknown Urine Glucose (UA) >=500 mg/dL (Negative) 01/06/20 Unknown Urine Ketones Neg mg/dL (Negative) 01/06/20 Unknown Urine Blood Neg (Negative) 01/06/20 Unknown Urine Nitrite Neg (Negative) 01/06/20 Unknown Urine Bilirubin Neg (Negative) 01/06/20 Unknown Urine Urobilinogen < 2.0 mg/dL (<2.0) 01/06/20 Unknown Ur Leukocyte Esterase Neg (Negative) 01/06/20 Unknown Urine WBC (Auto) 1.0 /HPF (0.0-6.0) 01/06/20 Unknown Urine RBC (Auto) 1.0 /HPF (0.0-6.0) 01/06/20 Unknown U Epithel Cells (Auto) < 1.0 /HPF (0-13.0) 01/06/20 Unknown Urine Mucus Few /HPF 01/06/20 Unknown Nasal Screen MRSA (PCR) Negative (Negative) 01/05/20 18:45 Urine Opiates Screen Presumptive negative 01/06/20 Unknown Urine Methadone Screen Presumptive negative 01/06/20 Unknown Ur Barbiturates Screen Presumptive negative 01/06/20 Unknown Ur Phencyclidine Scrn Presumptive negative 01/06/20 Unknown Ur Amphetamines Screen Presumptive negative 01/06/20 Unknown U Benzodiazepines Scrn Presumptive negative 01/06/20 Unknown Urine Cocaine Screen Presumptive negative 01/06/20 Unknown U Marijuana (THC) Screen Presumptive positive 01/06/20 Unknown Drugs of Abuse Note Disclamer 01/06/20 Unknown Plasma/Serum Alcohol 0.12 % (0-0.07) H 01/05/20 06:56 Microbiology: Microbiology 01/05/20 Unknown Peripheral/Venous Blood Culture - Final NO GROWTH AFTER 5 DAYS 01/05/20 Unknown Peripheral/Venous Blood Culture - Final NO GROWTH AFTER 5 DAYS Huggins/IV: Voiding Method Urinal IV Catheter Type [Left Hand] INT / Saline Lock IV Catheter Type [Left INT / Saline Lock Antecubital] IV Catheter Type [Right INT / Saline Lock Antecubital] Active Medications - Current Medications Current Medications: Generic Name Dose Route Start Last Admin Trade Name Freq PRN Reason Stop Dose Admin Acetaminophen 650 mg 01/05/20 14:29 Tylenol PO Q4H PRN Pain MILD(1-3)/Fever >100.5/FUNK Hydrocodone Bitart/Acetaminophen 1 each 01/07/20 12:15 01/10/20 13:35 Jenkins 5/325 PO 1 each Q6H PRN Administration Pain, Moderate (4-6) Hydrocodone Bitart/Acetaminophen 1 each 01/10/20 12:46 [place] 5/325 PO Q6H PRN Pain, Moderate (4-6) Amlodipine Besylate 10 mg 01/08/20 10:00 01/10/20 09:50 Amlodipine PO 10 mg DAILY ELIDA Administration Aspirin 81 mg 01/08/20 10:00 01/10/20 09:48 Halfprin Ec PO 81 mg QDAY ELIDA Administration Atorvastatin Calcium 80 mg 01/08/20 22:00 01/09/20 22:23 Lipitor PO 80 mg QHS ELIDA Administration Clonidine HCl 0.2 mg 01/05/20 16:00 01/10/20 13:11 Catapres PO 0.2 mg TID ELIDA Administration Famotidine 20 mg 01/05/20 22:00 01/10/20 09:49 Pepcid PO 20 mg BID ELIDA Administration Gabapentin 300 mg 01/08/20 14:00 01/10/20 13:10 Gabapentin PO 300 mg Q8HR ELIDA Administration Hydralazine HCl 50 mg 01/05/20 14:00 01/10/20 13:10 Apresoline PO 50 mg Q8HR ELIDA Administration Hydromorphone HCl 0.5 mg 01/05/20 14:29 Dilaudid IV Q3H PRN Pain , Severe (7-10) Sodium Chloride 500 mls @ 50 mls/hr 01/07/20 11:00 Nacl 0.9% 500 Ml IV DIRECT ELIDA Sodium Chloride 1,000 mls @ 100 mls/hr 01/10/20 14:00 Nacl 0.9% 1000 Ml IV 01/10/20 14:01 DIRECT ELIDA Insulin Glargine 17 units 01/08/20 22:00 01/09/20 22:26 Lantus SUB-Q 17 units QHS ELIDA Administration Insulin Human Lispro 0 unit 01/06/20 03:45 01/10/20 10:01 Humalog SUB-Q Not Given ACHS ELIDA Protocol Isosorbide Mononitrate 30 mg 01/07/20 13:00 01/10/20 09:48 Imdur PO 30 mg QDAY ELIDA Administration Metoclopramide HCl 10 mg 01/05/20 14:29 Reglan IV Q6H PRN Nausea And Vomiting Metoprolol Tartrate 50 mg 01/05/20 22:00 01/10/20 09:49 Metoprolol PO 50 mg BID ELIDA Administration Morphine Sulfate 2 mg 01/05/20 13:56 01/06/20 06:36 Morphine IV 2 mg Q4H PRN Administration Pain, Moderate (4-6) Nitroglycerin 0.4 mg 01/08/20 07:50 Nitrostat SL Q5M PRN Chest Pain Ondansetron HCl 4 mg 01/05/20 14:29 Zofran IV Q8H PRN Nausea And Vomiting Oxycodone/Acetaminophen 1 tab 01/05/20 14:29 Percocet 5/325 PO Q6H PRN Pain, Moderate (4-6) Sodium Chloride 10 ml 01/05/20 22:00 01/10/20 13:15 Sodium Chloride Flush Syringe 10 Ml IV 10 ml BID ELIDA Administration Sodium Chloride 10 ml 01/05/20 14:29 Sodium Chloride Flush Syringe 10 Ml IV PRN PRN LINE FLUSH Ticagrelor 90 mg 01/07/20 22:00 01/10/20 10:00 Brilinta PO Not Given BID ELIDA Valsartan 160 mg 01/05/20 15:00 01/10/20 03:00 Diovan PO 160 mg Q12H ELIDA Administration
[2020-01-10] MEDS ORDERED: SODIUM CHLORIDE 0.9% 1000 ML 1,000 ML IV SCH (14:00)
--- NOTE | 2020-01-10 16:04 | Progress Note ---
Assessment and Plan Atypical chest pain. Uncontrolled hypertension. Coronary artery disease. Obesity. Diabetes type 2. History of asthma. Tobacco use disorder. Subjective Date of service: 01/10/20 Principal diagnosis: NSTEMI Interval history: Atypical chest pain. Uncontrolled hypertension. Coronary artery disease. Obesity. Diabetes type 2. History of asthma. Tobacco use disorder. Objective Vital Signs - 12hr 01/10/20 01/10/20 01/10/20 07:27 09:00 09:48 Temperature Pulse Rate 67 62 Pulse Rate [ 62 Right Radial] Respiratory Rate Blood Pressure 134/99 151/104 Blood Pressure [Left] O2 Sat by Pulse 100 97 Oximetry 01/10/20 01/10/20 01/10/20 09:50 09:54 10:00 Temperature 97.7 F Pulse Rate 62 62 65 Pulse Rate [ Right Radial] Respiratory 18 Rate Blood Pressure 151/104 Blood Pressure 151/104 [Left] O2 Sat by Pulse 97 Oximetry 01/10/20 01/10/20 01/10/20 12:44 13:10 13:27 Temperature 97.7 F Pulse Rate 64 61 70 Pulse Rate [ Right Radial] Respiratory 18 Rate Blood Pressure 157/100 151/100 145/97 Blood Pressure [Left] O2 Sat by Pulse 100 99 Oximetry 01/10/20 01/10/20 01/10/20 14:50 15:05 15:20 Temperature 98.8 F 98.6 F 98.8 F Pulse Rate 67 85 71 Pulse Rate [ Right Radial] Respiratory 16 16 14 Rate Blood Pressure 122/77 112/72 126/65 Blood Pressure [Left] O2 Sat by Pulse 98 98 99 Oximetry 01/10/20 01/10/20 15:35 15:50 Temperature 98.0 F 98.2 F Pulse Rate 71 73 Pulse Rate [ Right Radial] Respiratory 14 14 Rate Blood Pressure 124/79 142/98 Blood Pressure [Left] O2 Sat by Pulse 96 97 Oximetry Constitutional: no acute distress, alert Eyes: non-icteric ENT: oropharynx moist Neck: supple, no lymphadenopathy Ascultation: Bilateral: diminished breath sounds, other (Slightly prolonged expiratory phase.) Cardiovascular: regular rate and rhythm Gastrointestinal: normoactive bowel sounds, soft, non-tender Integumentary: normal Extremities: no cyanosis, no edema Neurologic: normal mental status, non-focal exam, pupils equal and round, CN II- XII normal Psychiatric: mood appropriate CBC and BMP: 01/10/20 03:51 01/10/20 03:51 ABG, PT/INR, D-dimer: PT/INR, D-dimer PT 13.5 Sec. (12.2-14.9) 01/10/20 03:51 INR 1.01 (0.87-1.13) 01/10/20 03:51 D-Dimer < 135.00 ng/mlDDU (0-234) 01/05/20 15:10 Abnormal lab findings: Abnormal Labs 01/05/20 01/05/20 01/05/20 05:20 05:20 06:56 WBC 15.6 H RBC 5.16 H Hct RDW 15.7 H Lymph % (Auto) 11.1 L [place] % (Auto) [place] # (Auto) Seg Neutrophils % 82.8 H Seg Neutrophils # 12.9 H APTT Heparin Anti-Xa Level Sodium Potassium 3.4 L Chloride 97.7 L Carbon Dioxide 20 L BUN 7 L Glucose 262 H POC Glucose Hemoglobin A1c AST ALT < 5 L Alkaline Phosphatase < 5 L Troponin T Albumin < 0.2 L HDL Cholesterol Plasma/Serum Alcohol 01/05/20 01/05/20 01/05/20 06:56 15:10 15:10 WBC RBC Hct RDW Lymph % (Auto) [place] % (Auto) [place] # (Auto) Seg Neutrophils % Seg Neutrophils # APTT Heparin Anti-Xa Level Sodium Potassium Chloride Carbon Dioxide BUN Glucose POC Glucose Hemoglobin A1c 12.6 H AST ALT Alkaline Phosphatase Troponin T 0.145 H* D Albumin HDL Cholesterol 33 L Plasma/Serum Alcohol 0.12 H 01/05/20 01/05/20 01/06/20 20:34 23:28 03:49 WBC RBC Hct RDW Lymph % (Auto) [place] % (Auto) [place] # (Auto) Seg Neutrophils % Seg Neutrophils # APTT Heparin Anti-Xa Level Sodium Potassium Chloride Carbon Dioxide BUN Glucose POC Glucose 265 H 264 H Hemoglobin A1c AST ALT Alkaline Phosphatase Troponin T 0.187 H* D Albumin HDL Cholesterol Plasma/Serum Alcohol 01/06/20 01/06/20 01/06/20 05:04 05:04 08:16 WBC RBC Hct RDW 15.5 H Lymph % (Auto) [place] % (Auto) 10.1 H [place] # (Auto) 0.9 H Seg Neutrophils % Seg Neutrophils # APTT Heparin Anti-Xa Level Sodium 135 L Potassium Chloride 97.5 L Carbon Dioxide BUN 8 L Glucose 242 H POC Glucose 200 H Hemoglobin A1c AST 71 H ALT Alkaline Phosphatase Troponin T Albumin 3.8 L HDL Cholesterol Plasma/Serum Alcohol 01/06/20 01/06/20 01/06/20 11:45 16:55 21:48 WBC RBC Hct RDW Lymph % (Auto) [place] % (Auto) [place] # (Auto) Seg Neutrophils % Seg Neutrophils # APTT Heparin Anti-Xa Level Sodium Potassium Chloride Carbon Dioxide BUN Glucose POC Glucose 240 H 271 H 284 H Hemoglobin A1c AST ALT Alkaline Phosphatase Troponin T Albumin HDL Cholesterol Plasma/Serum Alcohol 01/07/20 01/07/20 01/07/20 05:07 05:07 06:48 WBC RBC Hct RDW Lymph % (Auto) [place] % (Auto) [place] # (Auto) Seg Neutrophils % Seg Neutrophils # APTT 63.6 H* Heparin Anti-Xa Level Sodium Potassium 3.5 L Chloride Carbon Dioxide BUN Glucose 213 H POC Glucose 201 H Hemoglobin A1c AST ALT Alkaline Phosphatase Troponin T Albumin HDL Cholesterol Plasma/Serum Alcohol 01/07/20 01/07/20 01/07/20 07:48 08:02 12:52 WBC RBC Hct RDW Lymph % (Auto) [place] % (Auto) [place] # (Auto) Seg Neutrophils % Seg Neutrophils # APTT Heparin Anti-Xa Level < 0.10 L Sodium Potassium Chloride Carbon Dioxide BUN Glucose POC Glucose 201 H 216 H Hemoglobin A1c AST ALT Alkaline Phosphatase Troponin T Albumin HDL Cholesterol Plasma/Serum Alcohol 01/07/20 01/07/20 01/08/20 16:59 21:26 04:39 WBC RBC Hct RDW 15.4 H Lymph % (Auto) [place] % (Auto) 8.9 H [place] # (Auto) 0.9 H Seg Neutrophils % Seg Neutrophils # APTT Heparin Anti-Xa Level Sodium Potassium Chloride Carbon Dioxide BUN Glucose POC Glucose 302 H 234 H Hemoglobin A1c AST ALT Alkaline Phosphatase Troponin T Albumin HDL Cholesterol Plasma/Serum Alcohol 01/08/20 01/08/20 01/08/20 04:39 08:50 11:50 WBC RBC Hct RDW Lymph % (Auto) [place] % (Auto) [place] # (Auto) Seg Neutrophils % Seg Neutrophils # APTT Heparin Anti-Xa Level Sodium Potassium 3.5 L Chloride Carbon Dioxide BUN Glucose 184 H POC Glucose 220 H 320 H Hemoglobin A1c AST ALT Alkaline Phosphatase Troponin T 0.841 H* D Albumin HDL Cholesterol Plasma/Serum Alcohol 01/08/20 01/08/20 01/08/20 14:20 16:00 21:21 WBC RBC Hct RDW Lymph % (Auto) [place] % (Auto) [place] # (Auto) Seg Neutrophils % Seg Neutrophils # APTT Heparin Anti-Xa Level 0.14 L Sodium Potassium Chloride Carbon Dioxide BUN Glucose POC Glucose 359 H 174 H Hemoglobin A1c AST ALT Alkaline Phosphatase Troponin T Albumin HDL Cholesterol Plasma/Serum Alcohol 01/09/20 01/09/20 01/09/20 03:58 08:22 12:19 WBC RBC Hct 34.8 L RDW Lymph % (Auto) [place] % (Auto) [place] # (Auto) Seg Neutrophils % Seg Neutrophils # APTT Heparin Anti-Xa Level Sodium Potassium Chloride Carbon Dioxide BUN Glucose POC Glucose 181 H 274 H Hemoglobin A1c AST ALT Alkaline Phosphatase Troponin T Albumin HDL Cholesterol Plasma/Serum Alcohol 01/09/20 01/09/20 01/10/20 17:16 20:45 00:43 WBC RBC Hct RDW Lymph % (Auto) [place] % (Auto) [place] # (Auto) Seg Neutrophils % Seg Neutrophils # APTT Heparin Anti-Xa Level 0.20 L Sodium Potassium Chloride Carbon Dioxide BUN Glucose POC Glucose 308 H 189 H Hemoglobin A1c AST ALT Alkaline Phosphatase Troponin T Albumin HDL Cholesterol Plasma/Serum Alcohol 01/10/20 01/10/20 01/10/20 03:39 03:51 03:51 WBC RBC Hct RDW Lymph % (Auto) [place] % (Auto) 9.8 H [place] # (Auto) Seg Neutrophils % Seg Neutrophils # APTT Heparin Anti-Xa Level < 0.10 L Sodium Potassium Chloride Carbon Dioxide BUN Glucose POC Glucose 221 H Hemoglobin A1c AST ALT Alkaline Phosphatase Troponin T Albumin HDL Cholesterol Plasma/Serum Alcohol 01/10/20 01/10/20 01/10/20 03:51 08:03 13:20 WBC RBC Hct RDW Lymph % (Auto) [place] % (Auto) [place] # (Auto) Seg Neutrophils % Seg Neutrophils # APTT Heparin Anti-Xa Level Sodium Potassium Chloride Carbon Dioxide BUN Glucose 224 H POC Glucose 183 H 189 H Hemoglobin A1c AST ALT Alkaline Phosphatase Troponin T Albumin HDL Cholesterol Plasma/Serum Alcohol
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
[2020-01-10] MEDS: INSULIN GLARGINE 100 UNITS/ML SUB-Q SCH (22:12)
[2020-01-11] MEDS: VALSARTAN 160MG TAB PO SCH (03:11)
[2020-01-11 06:10] LABS: Basophils # (Auto) 0.1 K/mm3 (0.0-0.1); Basophils % (Auto) 0.6 % (0.0-1.8); Eosinophils # (Auto) 0.3 K/mm3 (0.0-0.4); Eosinophils % (Auto) 2.6 % (0.0-4.3); Hematocrit 37.9 % (35.5-45.6); Hemoglobin 12.7 gm/dl (11.8-15.2); Lymphocytes % (Auto) 30.3 % (13.4-35.0); Mean Corpuscular HGB Conc 34 % (32-34); Mean Corpuscular Volume 85 fl (84-94); Monocytes % (Auto) 9.7 % (0.0-7.3); Platelet Count 226 K/mm3 (140-440); Red Blood Count 4.47 M/mm3 (3.65-5.03); Red Cell Distribution Width 15.4 % (13.2-15.2)
[2020-01-11 06:20] LABS: Creatine Kinase MB 1.2 ng/mL (0.0-4.0)
[2020-01-11 06:21] LABS: BUN/Creatinine Ratio 14; Blood Urea Nitrogen 13 mg/dL (9-20); Calcium 9.2 mg/dL (8.4-10.2); Hemolysis Index 6
[2020-01-11] MEDS: hydrALAZINE 25 MG TAB PO SCH ×2 (06:21→14:10)
[2020-01-11] MEDS: GABAPENTIN 300 MG CAP PO SCH ×2 (06:21→14:10)
[2020-01-11] MEDS: INSULIN LISPRO 100 UNIT/ML VIAL 3 mL SUB-Q SCH ×2 (07:53→12:53)
--- NOTE | 2020-01-11 08:15 | XRay Report ---
CHEST 1 VIEW INDICATION / CLINICAL INFORMATION: post pci. COMPARISON: 01/08/2020 FINDINGS: SUPPORT DEVICES: None. HEART / MEDIASTINUM: No significant abnormality. LUNGS / PLEURA: No significant pulmonary or pleural abnormality. No pneumothorax. ADDITIONAL FINDINGS: No significant additional findings. IMPRESSION: No acute disease or interval change from 01/08/2020 Signer Name: Naresh Perez MD FACR Signed: 01/11/2020 8:10 AM Workstation Name: [id number]
[2020-01-11] MEDS ORDERED: POTASSIUM CHLORIDE ER 20 MEQ TAB PO ONE (09:00)
[2020-01-11] MEDS: amLODIPine 10 MG TAB PO SCH (10:03)
[2020-01-11] MEDS: cloNIDine 0.2 MG TAB PO SCH ×2 (10:04→14:10)
[2020-01-11] MEDS: METOPROLOL TARTRATE 50 MG TAB PO SCH (10:04)
[2020-01-11] MEDS: TICAGRELOR 90 MG TAB PO SCH (10:04)
[2020-01-11] MEDS: FAMOTIDINE 20 MG TAB PO SCH (10:04)
[2020-01-11] MEDS: ASPIRIN EC 81 MG TAB PO SCH (10:05)
--- NOTE | 2020-01-11 10:30 | Progress Note ---
Assessment and Plan NSTEMI [facility] 01/07/20: COL[employer] CUSTODIAN of distal RCA within prior stent (beyond the rPDA). Thrombus occlusion of the mid-OM. Plavix was discontinued and replaced with Brilinta 90mg bid Repeat [facility] 01/10/20: occlusive thrombus in the mid obtuse marginal to have resolved substantially. Due to residual mild thrombus with an associated lesional segment, we deployed a 2.5 x 15 mm drug-eluting stent Coronary artery disease s/p PCI to RCA 04/2019 LAD thrombus treated with anticoagulation 04/2019 Abnormal ECG No acute changes this admission Hypertension Tobacco use Uncontrolled type II DM Continue medical therapy for coronary artery disease including a low dose aspirin and Brilinta 90 mg twice daily without interruption. Stable for cardiac discharge. Patient will follow up in our office in 3-5 days. Subjective Date of service: 01/11/20 Principal diagnosis: NSTEMI Interval history: Patient is resting comfortably in bed. He denies chest pain. No pain or edema to right radial cath site. Objective Vital Signs Temp Pulse Pulse Resp BP BP Pulse Ox 01/11/20 10:04 98 H 169/102 01/11/20 07:48 98.3 F 65 18 169/102 100 01/11/20 06:21 76 01/11/20 04:11 98.0 F 62 18 152/107 99 01/11/20 00:00 63 97 01/10/20 23:54 98.0 F 78 18 145/100 100 01/10/20 22:00 67 01/10/20 20:25 98 F 98 H 18 121/68 99 01/10/20 20:00 63 97 01/10/20 17:57 72 113/80 01/10/20 16:05 98.4 F 68 14 125/91 96 01/10/20 15:50 98.2 F 73 14 142/98 97 01/10/20 15:35 98.0 F 71 14 124/79 96 01/10/20 15:20 98.8 F 71 14 126/65 99 01/10/20 15:05 98.6 F 85 16 112/72 98 01/10/20 14:54 122/77 01/10/20 14:50 98.8 F 67 16 122/77 98 01/10/20 14:43 126/78 01/10/20 13:27 70 145/97 99 01/10/20 13:10 61 151/100 01/10/20 12:44 97.7 F 64 18 157/100 100 - Physical Examination General: Appears Well, No Apparent Distress HEENT: Positive: PERRL Neck: Positive: neck supple Cardiac: Positive: Reg Rate and Rhythm Lungs: Positive: Decreased Breath Sounds Neuro: Positive: Grossly Intact Abdomen: Positive: Soft Extremities: Absent: edema - Labs and Meds Cardiac Enzymes 01/11/20 Range/Units 05:12 CK-MB (CK-2) 1.2 (0.0-4.0) ng/mL CBC 01/11/20 Range/Units 05:12 WBC 9.8 (4.5-11.0) K/mm3 RBC 4.47 (3.65-5.03) M/mm3 Hgb 12.7 (11.8-15.2) gm/dl Hct 37.9 (35.5-45.6) % Plt Count 226 (140-440) K/mm3 Lymph # (Auto) 3.0 (1.2-5.4) K/mm3 [place] # (Auto) 1.0 H (0.0-0.8) K/mm3 Eos # (Auto) 0.3 (0.0-0.4) K/mm3 Baso # (Auto) 0.1 (0.0-0.1) K/mm3 Comprehensive Metabolic Panel 01/11/20 Range/Units 05:12 Sodium 135 L (137-145) mmol/L Potassium 3.5 L (3.6-5.0) mmol/L Chloride 96.7 L (98-107) mmol/L Carbon Dioxide 24 (22-30) mmol/L BUN 13 (9-20) mg/dL Creatinine 0.9 (0.8-1.3) mg/dL Glucose 187 H (75-100) mg/dL Calcium 9.2 (8.4-10.2) mg/dL
--- NOTE | 2020-01-11 10:56 | Discharge Summary ---
Providers - Providers Date of Admission: 01/05/20 10:10 Date of discharge: 01/11/20 Attending physician: ASTER LOPEZ 01/05/20 08:58 Consult to Physician [CONS] Stat Comment: Consulting Provider: NIKIA CALLEJAS Physician Instructions: Reason For Exam: chest pain 01/05/20 10:22 Consult to Physician [CONS] Routine Comment: Consulting Provider: BRITTANY NICOLE Physician Instructions: Reason For Exam: critical care 01/07/20 Consult to Cardiac Rehabilitation [CONS] Routine Reason For Exam: post pci 01/10/20 Consult to Cardiac Rehabilitation [CONS] Routine Reason For Exam: post pci Primary care physician: [facility] Hospitalization Condition: Stable Hospital course: 39-year-old with extensive history of coronary artery disease admitted to the ED with complaints of left-sided chest pain since a.m. Chest pain is retrosternal nonradiating. Chest pain is about 7 on a scale of 1-10. No diaphoresis. No shortness of breath. No radiation. No exacerbating or relieving factors. In the ER, he was noted to have uptrending troponin and cardiology was consulted. Patient had cardiac cath performed that showed complete total occlusion of distal RCA within prior stent and de yi 99% thrombus occlusion of the mid OM. Patient was started on IV Aggrastat and plan was to have a PCI in 48 to 72 hour s. Patient blood pressure was also adjusted during this time. Patient had left heart catheterization with PCI of the mid OM on 01/09. He remained chest pain-free. He has been started on Brilinta 90 mg twice daily. He will need to follow-up with cardiology in the office in 3 to 5 days. He will also continue aspirin 81 mg daily. Patient has been counseled extensively on need to stop tobacco abuse. He will continue to use nicotine replacement therapy and follow-up with PCP in the office. He has been cleared from cardiology standpoint and is medically stable for discharge. Discharge Diagnosis NSTEMI Accelerated HTN Tobacco abuse DM Disposition: TO HOME OR SELFCARE Core Measure Documentation - Palliative Care Palliative Care/ Comfort Measures: Not Applicable - Core Measures Any of the following diagnoses?: none Exam - Physical Exam Narrative exam: VITAL SIGNS: Reviewed. GENERAL: Awake and alert on response to questions HEAD: No signs of head trauma. EYES: Pupils are equal. Extraocular motions intact. EARS: Hearing grossly intact. MOUTH: Oropharynx is normal. NECK: No adenopathy, no JVD. CHEST: Chest with diminished breath sounds bilaterally. No wheezes, rales, or rhonchi. CARDIAC: Regular rate and rhythm. S1 and S2, without murmurs, gallops, or rubs. VASCULAR: No Edema. Peripheral pulses normal and equal in all extremities. ABDOMEN: Soft, non tender and non distended. No rebound or guarding, and no masses palpated. Bowel Sounds normal. MUSCULOSKELETAL: Good range of motion of all major joints. Extremities without clubbing, cyanosis or edema. NEUROLOGIC EXAM: Alert and oriented x3. No focal neurologic deficits PSYCHIATRIC: Stable mood SKIN: No obvious lesions - Constitutional Vitals: Temp Pulse Resp BP Pulse Ox 98.3 F 98 H 18 169/102 100 01/11/20 07:48 01/11/20 10:04 01/11/20 07:48 01/11/20 10:04 01/11/20 07:48 Plan Diet: low fat, low cholesterol, low salt Special Instructions: smoking cessation Additional Instructions: Continue aspirin and Brilinta as prescribed. Follow-up with cardiology in the office in 3 to 5 days. Quit tobacco abuse Follow up with: PRIMARY CAREMD [Primary Care Provider] - 3-5 Days NIKIA CALLEJAS MD [Staff Physician] - 7 Days Prescriptions: hydrALAZINE [Apresoline TAB] 50 mg PO Q8HR #120 tablet Ticagrelor [Brilinta] 90 mg PO BID #60 tablet cloNIDine [Catapres] 0.2 mg PO TID #90 tablet Valsartan [Diovan] 160 mg PO Q12H #60 tablet Aspirin EC [Halfprin EC] 81 mg PO QDAY #90 tablet ISOSORBIDE MONOnitrate [Imdur ER] 30 mg PO QDAY #30 tablet Metoprolol [Lopressor TAB] 50 mg PO BID #60 tablet
--- NOTE | 2020-01-11 13:12 | Progress Note ---
Assessment and Plan Chest pain Hypertensive urgency CAD (coronary artery disease) DM2 (diabetes mellitus, type 2) ETOH abuse Tobacco abuse - supplemental oxygen to keep O2 sats > 90% - prn bronchodilators with pulm hygiene per RT - avoid nephrotoxins, renally dose all medications - mobility protocols to prevent pressure ulcers - PT/OT as tolerated - accuchecks with glycemic control per SSI for target blood glucose < 180 mg/dL - ACS w/up per cardiology - Smoking cessation strongly counseled at the bedside - home oxygen evaluation at discharge - GI & VTE prophylaxis - Flu & pneumovax per protocol - Pulmonary out patient follow up for PFTs and optimization of respiratory status - continue other care per attending / other consultants - prn analgesia per pain score ... re-evaluate in am & prn Subjective Date of service: 01/11/20 Principal diagnosis: NSTEMI; Hypertensive urgency; CAD; DM2; ETOH abuse; Tobacco abuse Interval history: Patient is seen today for: Chest pain / NSTEMI; Hypertensive urgency; CAD; DM2; ETOH abuse; Tobacco abuse Seen and examined at bedside; 24hour events reviewed; nursing and respiratory care staff consulted; no adverse overnight events reported to me; resting peacefully in bed; Objective Vital Signs - 12hr 01/11/20 01/11/20 01/11/20 04:11 06:21 07:48 Temperature 98.0 F 98.3 F Pulse Rate 62 76 65 Respiratory 18 18 Rate Blood Pressure 152/107 169/102 O2 Sat by Pulse 99 100 Oximetry 01/11/20 01/11/20 01/11/20 10:04 11:25 12:02 Temperature Pulse Rate 98 H 98 H Respiratory Rate Blood Pressure 169/102 O2 Sat by Pulse 99 Oximetry Constitutional: no acute distress, alert Eyes: non-icteric ENT: oropharynx moist Neck: supple, no lymphadenopathy Ascultation: Bilateral: diminished breath sounds, other (Slightly prolonged expiratory phase.) Cardiovascular: regular rate and rhythm Gastrointestinal: normoactive bowel sounds, soft, non-tender Integumentary: normal Extremities: no cyanosis, no edema Neurologic: normal mental status, non-focal exam, pupils equal and round, CN II- XII normal Psychiatric: mood appropriate CBC and BMP: 01/11/20 05:12 01/11/20 05:12 ABG, PT/INR, D-dimer: PT/INR, D-dimer PT 13.5 Sec. (12.2-14.9) 01/10/20 03:51 INR 1.01 (0.87-1.13) 01/10/20 03:51 D-Dimer < 135.00 ng/mlDDU (0-234) 01/05/20 15:10 Abnormal lab findings: Abnormal Labs 01/05/20 01/05/20 01/05/20 05:20 05:20 06:56 WBC 15.6 H RBC 5.16 H Hct RDW 15.7 H Lymph % (Auto) 11.1 L [place] % (Auto) [place] # (Auto) Seg Neutrophils % 82.8 H Seg Neutrophils # 12.9 H APTT Heparin Anti-Xa Level Sodium Potassium 3.4 L Chloride 97.7 L Carbon Dioxide 20 L BUN 7 L Glucose 262 H POC Glucose Hemoglobin A1c AST ALT < 5 L Alkaline Phosphatase < 5 L Troponin T Albumin < 0.2 L HDL Cholesterol Plasma/Serum Alcohol 01/05/20 01/05/20 01/05/20 06:56 15:10 15:10 WBC RBC Hct RDW Lymph % (Auto) [place] % (Auto) [place] # (Auto) Seg Neutrophils % Seg Neutrophils # APTT Heparin Anti-Xa Level Sodium Potassium Chloride Carbon Dioxide BUN Glucose POC Glucose Hemoglobin A1c 12.6 H AST ALT Alkaline Phosphatase Troponin T 0.145 H* D Albumin HDL Cholesterol 33 L Plasma/Serum Alcohol 0.12 H 01/05/20 01/05/20 01/06/20 20:34 23:28 03:49 WBC RBC Hct RDW Lymph % (Auto) [place] % (Auto) [place] # (Auto) Seg Neutrophils % Seg Neutrophils # APTT Heparin Anti-Xa Level Sodium Potassium Chloride Carbon Dioxide BUN Glucose POC Glucose 265 H 264 H Hemoglobin A1c AST ALT Alkaline Phosphatase Troponin T 0.187 H* D Albumin HDL Cholesterol Plasma/Serum Alcohol 01/06/20 01/06/20 01/06/20 05:04 05:04 08:16 WBC RBC Hct RDW 15.5 H Lymph % (Auto) [place] % (Auto) 10.1 H [place] # (Auto) 0.9 H Seg Neutrophils % Seg Neutrophils # APTT Heparin Anti-Xa Level Sodium 135 L Potassium Chloride 97.5 L Carbon Dioxide BUN 8 L Glucose 242 H POC Glucose 200 H Hemoglobin A1c AST 71 H ALT Alkaline Phosphatase Troponin T Albumin 3.8 L HDL Cholesterol Plasma/Serum Alcohol 01/06/20 01/06/20 01/06/20 11:45 16:55 21:48 WBC RBC Hct RDW Lymph % (Auto) [place] % (Auto) [place] # (Auto) Seg Neutrophils % Seg Neutrophils # APTT Heparin Anti-Xa Level Sodium Potassium Chloride Carbon Dioxide BUN Glucose POC Glucose 240 H 271 H 284 H Hemoglobin A1c AST ALT Alkaline Phosphatase Troponin T Albumin HDL Cholesterol Plasma/Serum Alcohol 01/07/20 01/07/20 01/07/20 05:07 05:07 06:48 WBC RBC Hct RDW Lymph % (Auto) [place] % (Auto) [place] # (Auto) Seg Neutrophils % Seg Neutrophils # APTT 63.6 H* Heparin Anti-Xa Level Sodium Potassium 3.5 L Chloride Carbon Dioxide BUN Glucose 213 H POC Glucose 201 H Hemoglobin A1c AST ALT Alkaline Phosphatase Troponin T Albumin HDL Cholesterol Plasma/Serum Alcohol 01/07/20 01/07/20 01/07/20 07:48 08:02 12:52 WBC RBC Hct RDW Lymph % (Auto) [place] % (Auto) [place] # (Auto) Seg Neutrophils % Seg Neutrophils # APTT Heparin Anti-Xa Level < 0.10 L Sodium Potassium Chloride Carbon Dioxide BUN Glucose POC Glucose 201 H 216 H Hemoglobin A1c AST ALT Alkaline Phosphatase Troponin T Albumin HDL Cholesterol Plasma/Serum Alcohol 01/07/20 01/07/20 01/08/20 16:59 21:26 04:39 WBC RBC Hct RDW 15.4 H Lymph % (Auto) [place] % (Auto) 8.9 H [place] # (Auto) 0.9 H Seg Neutrophils % Seg Neutrophils # APTT Heparin Anti-Xa Level Sodium Potassium Chloride Carbon Dioxide BUN Glucose POC Glucose 302 H 234 H Hemoglobin A1c AST ALT Alkaline Phosphatase Troponin T Albumin HDL Cholesterol Plasma/Serum Alcohol 01/08/20 01/08/20 01/08/20 04:39 08:50 11:50 WBC RBC Hct RDW Lymph % (Auto) [place] % (Auto) [place] # (Auto) Seg Neutrophils % Seg Neutrophils # APTT Heparin Anti-Xa Level Sodium Potassium 3.5 L Chloride Carbon Dioxide BUN Glucose 184 H POC Glucose 220 H 320 H Hemoglobin A1c AST ALT Alkaline Phosphatase Troponin T 0.841 H* D Albumin HDL Cholesterol Plasma/Serum Alcohol 01/08/20 01/08/20 01/08/20 14:20 16:00 21:21 WBC RBC Hct RDW Lymph % (Auto) [place] % (Auto) [place] # (Auto) Seg Neutrophils % Seg Neutrophils # APTT Heparin Anti-Xa Level 0.14 L Sodium Potassium Chloride Carbon Dioxide BUN Glucose POC Glucose 359 H 174 H Hemoglobin A1c AST ALT Alkaline Phosphatase Troponin T Albumin HDL Cholesterol Plasma/Serum Alcohol 01/09/20 01/09/20 01/09/20 03:58 08:22 12:19 WBC RBC Hct 34.8 L RDW Lymph % (Auto) [place] % (Auto) [place] # (Auto) Seg Neutrophils % Seg Neutrophils # APTT Heparin Anti-Xa Level Sodium Potassium Chloride Carbon Dioxide BUN Glucose POC Glucose 181 H 274 H Hemoglobin A1c AST ALT Alkaline Phosphatase Troponin T Albumin HDL Cholesterol Plasma/Serum Alcohol 01/09/20 01/09/20 01/10/20 17:16 20:45 00:43 WBC RBC Hct RDW Lymph % (Auto) [place] % (Auto) [place] # (Auto) Seg Neutrophils % Seg Neutrophils # APTT Heparin Anti-Xa Level 0.20 L Sodium Potassium Chloride Carbon Dioxide BUN Glucose POC Glucose 308 H 189 H Hemoglobin A1c AST ALT Alkaline Phosphatase Troponin T Albumin HDL Cholesterol Plasma/Serum Alcohol 01/10/20 01/10/20 01/10/20 03:39 03:51 03:51 WBC RBC Hct RDW Lymph % (Auto) [place] % (Auto) 9.8 H [place] # (Auto) Seg Neutrophils % Seg Neutrophils # APTT Heparin Anti-Xa Level < 0.10 L Sodium Potassium Chloride Carbon Dioxide BUN Glucose POC Glucose 221 H Hemoglobin A1c AST ALT Alkaline Phosphatase Troponin T Albumin HDL Cholesterol Plasma/Serum Alcohol 01/10/20 01/10/20 01/10/20 03:51 08:03 13:20 WBC RBC Hct RDW Lymph % (Auto) [place] % (Auto) [place] # (Auto) Seg Neutrophils % Seg Neutrophils # APTT Heparin Anti-Xa Level Sodium Potassium Chloride Carbon Dioxide BUN Glucose 224 H POC Glucose 183 H 189 H Hemoglobin A1c AST ALT Alkaline Phosphatase Troponin T Albumin HDL Cholesterol Plasma/Serum Alcohol 01/10/20 01/10/20 01/11/20 16:18 21:39 05:12 WBC RBC Hct RDW 15.4 H Lymph % (Auto) [place] % (Auto) 9.7 H [place] # (Auto) 1.0 H Seg Neutrophils % Seg Neutrophils # APTT Heparin Anti-Xa Level Sodium Potassium Chloride Carbon Dioxide BUN Glucose POC Glucose 325 H 477 H Hemoglobin A1c AST ALT Alkaline Phosphatase Troponin T Albumin HDL Cholesterol Plasma/Serum Alcohol 01/11/20 01/11/20 01/11/20 05:12 08:08 11:56 WBC RBC Hct RDW Lymph % (Auto) [place] % (Auto) [place] # (Auto) Seg Neutrophils % Seg Neutrophils # APTT Heparin Anti-Xa Level Sodium 135 L Potassium 3.5 L Chloride 96.7 L Carbon Dioxide BUN Glucose 187 H POC Glucose 179 H 232 H Hemoglobin A1c AST ALT Alkaline Phosphatase Troponin T 0.346 H* D Albumin HDL Cholesterol Plasma/Serum Alcohol
[2020-01-11 14:08] VITALS: BP 109/78
== END 2020-01-11 16:00 | disposition home or self-care (01) | DRG 246 ==
LOC: ED 04:59 → CC1 10:10 → 4A 15:50
PROVIDERS: ADMIT Internal Medicine; ATTEND Internal Medicine
PROC: 4A023N7 Measurement of Cardiac Sampling and Pressure, Left Heart, Percutaneous Approach (ICD-10-PCS; 2020-01-07)
PROC: B2111ZZ Fluoroscopy of Multiple Coronary Arteries using Low Osmolar Contrast (ICD-10-PCS; 2020-01-07)
PROC: B2151ZZ Fluoroscopy of Left Heart using Low Osmolar Contrast (ICD-10-PCS; 2020-01-07)
PROC: 027034Z Dilation of Coronary Artery, One Artery with Drug-eluting Intraluminal Device, Percutaneous Approach (ICD-10-PCS; principal; 2020-01-10)
PROC: 4A023N7 Measurement of Cardiac Sampling and Pressure, Left Heart, Percutaneous Approach (ICD-10-PCS; 2020-01-10)
PROC: B2111ZZ Fluoroscopy of Multiple Coronary Arteries using Low Osmolar Contrast (ICD-10-PCS; 2020-01-10)
PROC: B2151ZZ Fluoroscopy of Left Heart using Low Osmolar Contrast (ICD-10-PCS; 2020-01-10)
DX: T82.855A Stenosis of coronary artery stent, initial encounter (principal); I21.4 Non-ST elevation (NSTEMI) myocardial infarction; I16.1 Hypertensive emergency; J20.9 Acute bronchitis, unspecified; I25.10 Atherosclerotic heart disease of native coronary artery without angina pectoris; I10 Essential (primary) hypertension; E11.9 Type 2 diabetes mellitus without complications; R07.89 Other chest pain; R94.31 Abnormal electrocardiogram [ECG] [EKG]; Y84.0 Cardiac catheterization as the cause of abnormal reaction of the patient, or of later complication, without mention of misadventure at the time of the procedure; Y92.234 Operating room of hospital as the place of occurrence of the external cause; J45.909 Unspecified asthma, uncomplicated; Z88.8 Allergy status to other drugs, medicaments and biological substances; Z91.013 Allergy to seafood; Z91.14 Patient's other noncompliance with medication regimen; Z79.899 Other long term (current) drug therapy; Z99.81 Dependence on supplemental oxygen
CPT/HCPCS: 36415; 71045; 80048; 80053; 80061; 80076; 80307; 80320; 81001; 82550; 82553; 82962; 83036; 83690; 84484; 85014; 85018; 85025; 85049; 85347; 85379; 85520; 85610; 85730; 87040; 87641; 92928; 93005; 93454; 93458; 96374; 96375; 99406; G0378; A9270-GY; C1769; C1874; C1887; C1894; C9600; G0480; J1170; J1200; J1644; J1650; J1720; J1815; J1956; J2250; J2270; J2405; J3010; J3246; J7030; J7040; Q9967

== ENCOUNTER 2020-07-22 15:34 | Emergency (ER) | payer MEDICAID ==
[2020-07-22] MEDS ORDERED: ASPIRIN 325 MG TAB PO ONE (15:48)
[2020-07-22 15:54] VITALS: BP 127/83
--- NOTE | 2020-07-22 16:03 | Event Note ---
Date: 07/22/20 The patient was evaluated in the emergency department for symptoms described in the history of present illness. He/she was evaluated in the context of the global COVID-19 pandemic, which necessitated consideration that the patient might be at risk for infection with the virus that causes COVID-19. Institutional protocols and algorithms that pertain to the evaluation of patients at risk for COVID-19 are in a state of rapid change based on information released by regulatory bodies including the CDC and federal and state organizations. These policies and algorithms were followed during the patient's care in the emergency department. Please note that these policies, procedures and recommendations changed on a rapid basis. EKG interpreted at 15: 46 Sinus rhythm, 79 bpm. Normal axis, QTC prolonged, high left ventricular voltage, poor R wave progression, early repolarization, abnormal EKG, but this is not morphologically consistent with a STEMI. This EKG is similar to prior EKG from December 2019. In addition, the EKG was transmitted to our sap technical developer, Dr. Ralph, who is also personally reviewed this patient's EKGs, and indicates this EKG does not meet criteria for STEMI. Furthermore, the patient is laughing, smiling, and flirting with our phlebotomy staff, he does not appear to be in any acute distress, he denies current vomiting and diaphoresis, this is very unlikely to be an acute STEMI. He furthermore endorses atypical right-sided pinching chest discomfort for the past 2 weeks.
[2020-07-22 16:07] LABS: Basophils # (Auto) 0.1 K/mm3 (0.0-0.1); Basophils % (Auto) 1.3 % (0.0-1.8); Eosinophils # (Auto) 0.2 K/mm3 (0.0-0.4); Eosinophils % (Auto) 3.3 % (0.0-4.3); Hematocrit 43.3 % (35.5-45.6); Hemoglobin 14.5 gm/dl (11.8-15.2); Lymphocytes # (Auto) 2.1 K/mm3 (1.2-5.4); Lymphocytes % (Auto) 31.4 % (13.4-35.0); Mean Corpuscular HGB Conc 34 % (32-34); Mean Corpuscular Volume 83 fl (84-94); Monocytes # (Auto) 0.5 K/mm3 (0.0-0.8); Monocytes % (Auto) 7.9 % (0.0-7.3); Platelet Count 280 K/mm3 (140-440); Red Blood Count 5.21 M/mm3 (3.65-5.03); Red Cell Distribution Width 14.9 % (13.2-15.2)
[2020-07-22 16:36] LABS: Alanine Aminotransferase 29 units/L (7-56); Albumin 4.1 g/dL (3.9-5); BUN/Creatinine Ratio 10; Blood Urea Nitrogen 14 mg/dL (9-20); Hemolysis Index 8
--- NOTE | 2020-07-22 16:57 | XRay Report ---
CHEST 2 VIEWS INDICATION / CLINICAL INFORMATION: chest pain. FINDINGS: SUPPORT DEVICES: None. HEART / MEDIASTINUM: No significant abnormality. LUNGS / PLEURA: No significant pulmonary or pleural abnormality. No pneumothorax. ADDITIONAL FINDINGS: Severe posttraumatic deformity involving multiple right posterior rib superiorly .. IMPRESSION: 1. No acute findings. Signer Name: Greg Ivey MD Signed: 07/22/2020 4:52 PM Workstation Name: [id number]
--- NOTE | 2020-07-24 17:28 | Electrocardiograph Report ---
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
== END 2020-07-22 18:45 | disposition left against medical advice (07) ==
LOC: ED 15:34
DX: R07.89 Other chest pain (principal); Z53.21 Procedure and treatment not carried out due to patient leaving prior to being seen by health care provider
CPT/HCPCS: 36415; 71046; 80053; 84484; 85025; 93005

== ENCOUNTER 2021-03-12 18:34 | Observation (INO) | payer MEDICAID ==
[2021-03-12] MEDS ORDERED: SODIUM CHLORIDE 0.9% 1000 ML 1,000 ML IV ONE (18:48)
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
[2021-03-12 20:05] LABS: Basophils # (Auto) 0.1 K/mm3 (0.0-0.1); Basophils % (Auto) 1.2 % (0.0-1.8); Eosinophils # (Auto) 0.2 K/mm3 (0.0-0.4); Eosinophils % (Auto) 2.9 % (0.0-4.3); Hematocrit 37.3 % (35.5-45.6); Hemoglobin 12.1 gm/dl (11.8-15.2); Lymphocytes # (Auto) 2.1 K/mm3 (1.2-5.4); Mean Corpuscular HGB Conc 33 % (32-34); Mean Corpuscular Volume 85 fl (84-94); Monocytes # (Auto) 0.8 K/mm3 (0.0-0.8); Monocytes % (Auto) 12.7 % (0.0-7.3); Red Blood Count 4.38 M/mm3 (3.65-5.03); Red Cell Distribution Width 13.2 % (13.2-15.2)
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
[2021-03-12 20:07] LABS: Platelet Count 221 K/mm3 (140-440)
[2021-03-12 20:29] LABS: BUN/Creatinine Ratio 11; Blood Urea Nitrogen 18 mg/dL (9-20); Calcium 8.4 mg/dL (8.4-10.2); Hemolysis Index 17
[2021-03-12] MEDS ORDERED: INSULIN REGULAR, HUMAN 100 UNITS/1 ML IV ONE (20:36)
[2021-03-12] MEDS ORDERED: HEPARIN 10,000 UNITS/10 ML VIAL IV ONE (21:40)
[2021-03-12] MEDS ORDERED: HEPARIN/ 0.45% NACL DRIP 25,000 UNIT/500 ML BAG IV SCH (22:00)
[2021-03-12] MEDS ORDERED: ACETAMINOPHEN 325 MG TAB PO PRN ×2 (22:04)
[2021-03-12] MEDS ORDERED: traMADol 50 MG TAB PO PRN (22:04)
[2021-03-12] MEDS ORDERED: MORPHINE 2 MG/1 ML INJ IV PRN ×2 (22:04)
[2021-03-12] MEDS ORDERED: DEXTROSE 50% IN WATER (25GM) 50 ML SYRINGE IV PRN (22:04)
[2021-03-12] MEDS ORDERED: NITROGLYCERIN 0.4 MG TAB SUBL SL PRN (22:04)
[2021-03-12] MEDS ORDERED: ONDANSETRON 4 MG/2 ML INJ IV PRN (22:04)
[2021-03-12] MEDS ORDERED: MORPHINE 4 MG/1 ML INJ IV PRN (22:04)
[2021-03-12] MEDS ORDERED: MAGNESIUM HYDROXIDE (MOM) ORAL LIQD UDC PO PRN (22:04)
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
[2021-03-12 22:47] LABS: INR 1.03 (0.87-1.13); Partial Thromboplastin Time 25.8 Sec. (24.2-36.6)
[2021-03-12 23:01] LABS: Chol/HDL Ratio 2.95 %
[2021-03-13 07:18] LABS: BUN/Creatinine Ratio 15; Blood Urea Nitrogen 16 mg/dL (9-20); Hemolysis Index 3
[2021-03-13] MEDS: INSULIN LISPRO 100 UNIT/ML SUB-Q SCH ×2 (08:49→12:24)
--- NOTE | 2021-03-13 09:31 | Progress Note ---
Assessment and Plan Assessment and plan: Chest pain. Coronary artery disease.[facility] 01/07/20: VACCINATOR of distal RCA within prior stent (beyond the rPDA). Thrombus occlusion of the mid-OM. Plavix was discontinued and replaced with Brilinta 90mg bid Repeat [facility] 01/10/20: occlusive thrombus in the mid obtuse marginal to have resolved substantially. Due to residual mild thrombus with an associated lesional segment, we deployed a 2.5 x 15 mm drug-eluting stent s/p PCI to RCA 04/2019 LAD thrombus treated with anticoagulation 04/2019 Diabetes mellitus type 2 Hyperlipidemia History of tobacco use 03/13/2021. The patient has a moderate heart and EDER score. Given his history of coronary artery disease with cardiac stents, and his complaint that his chest pain is severe and an [place] equivalent, he has been placed on heparin for unstable angina. Serial troponins have been negative. Continue telemetry monitoring. Await cardiology consultation History Interval history: No new issues overnight. Hospitalist Physical - Constitutional Vitals: Temp Pulse Resp BP Pulse Ox 98.3 F 64 18 94/64 100 03/13/21 03:41 03/13/21 03:41 03/13/21 03:41 03/13/21 03:41 03/13/21 04:22 General appearance: Present: no acute distress, well-nourished, obese - EENT Eyes: Present: PERRL, EOM intact ENT: hearing intact, clear oral mucosa, dentition normal - Neck Neck: Present: supple, normal ROM - Respiratory Respiratory effort: normal Respiratory: bilateral: CTA - Cardiovascular Rhythm: regular Heart Sounds: Present: S1 & S2. Absent: gallop, rub - Extremities Extremities: no ischemia, No edema, Full ROM - Abdominal General gastrointestinal: soft, non-tender, non-distended, normal bowel sounds - Integumentary Integumentary: Present: clear, warm, dry - Neurologic Neurologic: CNII-XII intact, moves all extremities HEART Score - HEART Score EKG: Non-specific Age: < 45 Risk factors: > 3 risk factors or hx of atherosclerotic disease Troponin: Troponin T < 0.010 ng/mL (0.00-0.029) 03/13/21 05:12 Troponin: < normal limit Results - Labs CBC & Chem 7: 03/12/21 19:32 03/13/21 05:12 Labs: Laboratory Last Values WBC 6.7 K/mm3 (4.5-11.0) 03/12/21 19:32 RBC 4.38 M/mm3 (3.65-5.03) 03/12/21 19:32 Hgb 12.1 gm/dl (11.8-15.2) 03/12/21 19:32 Hct 37.3 % (35.5-45.6) 03/12/21 19:32 MCV 85 fl (84-94) 03/12/21 19:32 MCH 28 pg (28-32) 03/12/21 19:32 MCHC 33 % (32-34) 03/12/21 19:32 RDW 13.2 % (13.2-15.2) 03/12/21 19:32 Plt Count 221 K/mm3 (140-440) 03/12/21 19:32 Lymph % (Auto) 32.0 % (13.4-35.0) 03/12/21 19:32 Jenkins % (Auto) 12.7 % (0.0-7.3) H 03/12/21 19:32 Eos % (Auto) 2.9 % (0.0-4.3) 03/12/21 19:32 Baso % (Auto) 1.2 % (0.0-1.8) 03/12/21 19:32 Lymph # (Auto) 2.1 K/mm3 (1.2-5.4) 03/12/21 19:32 Jenkins # (Auto) 0.8 K/mm3 (0.0-0.8) 03/12/21 19:32 Eos # (Auto) 0.2 K/mm3 (0.0-0.4) 03/12/21 19:32 Baso # (Auto) 0.1 K/mm3 (0.0-0.1) 03/12/21 19:32 Seg Neutrophils % 51.2 % (40.0-70.0) 03/12/21 19:32 Seg Neutrophils # 3.4 K/mm3 (1.8-7.7) 03/12/21 19:32 PT 14.6 Sec. (12.2-14.9) 03/12/21 21:51 INR 1.03 (0.87-1.13) 03/12/21 21:51 APTT 25.8 Sec. (24.2-36.6) 03/12/21 21:51 Sodium 137 mmol/L (137-145) 03/13/21 05:12 Potassium 3.7 mmol/L (3.6-5.0) 03/13/21 05:12 Chloride 95.8 mmol/L (98-107) L 03/13/21 05:12 Carbon Dioxide 28 mmol/L (22-30) 03/13/21 05:12 Anion Gap 17 mmol/L 03/13/21 05:12 BUN 16 mg/dL (9-20) 03/13/21 05:12 Creatinine 1.1 mg/dL (0.8-1.3) 03/13/21 05:12 Estimated GFR > 60 ml/min 03/13/21 05:12 BUN/Creatinine Ratio 15 % 03/13/21 05:12 Glucose 176 mg/dL (75-100) H 03/13/21 05:12 Calcium 9.0 mg/dL (8.4-10.2) 03/13/21 05:12 Troponin T < 0.010 ng/mL (0.00-0.029) 03/13/21 05:12 Triglycerides 61 mg/dL (2-149) 03/12/21 21:55 Cholesterol 65 mg/dL (50-199) 03/12/21 21:55 LDL Cholesterol Direct 37 mg/dL (50-130) L 03/12/21 21:55 HDL Cholesterol 22 mg/dL (40-59) L 03/12/21 21:55 Cholesterol/HDL Ratio 2.95 % 03/12/21 21:55 Active Medications - Current Medications Current Medications: Generic Name Dose Route Start Last Admin Trade Name Freq PRN Reason Stop Dose Admin Acetaminophen 650 mg 03/12/21 22:04 Acetaminophen 325 Mg Tab PO Q4H PRN Pain MILD(1-3)/Fever >100.5/FUNK Aspirin 325 mg 03/13/21 10:00 Aspirin Ec 325 Mg Tab PO QDAY ELIDA Dextrose 0 ml 03/12/21 22:04 Dextrose 50% In Water (25gm) 50 Ml Syringe IV Q30MIN PRN Hypoglycemia Protocol Heparin Sodium/Sodium Chloride 25,000 unit in 500 mls @ 20 mls/hr 03/12/21 22:00 03/13/21 03:22 Heparin/ 0.45% Nacl-25,000 Unit/500 Ml IV 1,000 units/hr TITRATE ELIDA 20 mls/hr Administration Protocol 1,000 UNITS/HR Insulin Human Lispro 0 unit 03/13/21 07:30 03/13/21 08:49 Insulin Lispro 100 Unit/Ml SUB-Q Not Given ACHS ELIDA Protocol Magnesium Hydroxide 30 ml 03/12/21 22:04 Magnesium Hydroxide (Mom) Oral Liqd Udc PO Q4H PRN Constipation Morphine Sulfate 2 mg 03/12/21 22:04 Morphine 2 Mg/1 Ml Inj IV Q5MIN PRN Chest Pain unrelieved by NTG Morphine Sulfate 2 mg 03/12/21 22:04 Morphine 2 Mg/1 Ml Inj IV Q4H PRN Pain, Moderate (4-6) Morphine Sulfate 4 mg 03/12/21 22:04 Morphine 4 Mg/1 Ml Inj IV Q4H PRN Pain , Severe (7-10) Nitroglycerin 0.4 mg 03/12/21 22:04 Nitroglycerin 0.4 Mg Tab Subl SL Q5M PRN Chest Pain Ondansetron HCl 4 mg 03/12/21 22:04 Ondansetron 4 Mg/2 Ml Inj IV Q8H PRN Nausea And Vomiting Sodium Chloride 10 ml 03/13/21 10:00 Sodium Chloride 0.9% 10 Ml Flush Syringe IV BID ELIDA Sodium Chloride 10 ml 03/12/21 22:04 03/13/21 03:25 Sodium Chloride 0.9% 10 Ml Flush Syringe IV 10 ml PRN PRN Administration LINE FLUSH Tramadol HCl 50 mg 03/12/21 22:04 Tramadol 50 Mg Tab PO Q6H PRN Pain, Moderate (4-6)
[2021-03-13] MEDS ORDERED: ASPIRIN EC 325 MG TAB PO SCH (10:00)
[2021-03-13] MEDS ORDERED: REGADENOSON 0.4 MG/5 ML INJ IV ONE (11:00)
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
[2021-03-13 11:31] VITALS: BP 134/88
--- NOTE | 2021-03-13 12:11 | Discharge Summary ---
Providers - Providers Date of Admission: 03/12/21 22:05 Date of discharge: 03/13/21 Attending physician: JUDITH CARTER 03/12/21 22:05 Consult to Dietitian/Nutrition [CONS] Routine Physician Instructions: Reason For Exam: Reason for Consult: Diet education Primary care physician: MOLECULAR BIOLOGY SCIENTIST Hospitalization Reason for admission: cp Condition: Serious Hospital course: 40-year-old male with a history of hypertension diabetes cholesterol smoker known coronary arterial disease PCI in December 2019 of obtuse marginal 1 with a 2.5 x 50 mm stent. The patient was brought in by EMS for chest pain and admitted with this diagnosis and possible unstable angina. Cardiology saw the patient in consultation. EKG revealed sinus rhythm with LVH strain pattern. Echocardiogram on this admission showed borderline normal LV function with moderate LVH without significant regurgitation. Patient states pain is worse when he sits up. Has some fever chills. Denies any vaccination for COVID-19. Patient's states has been and [place] for the last 18 months has had cardiac follow-up there. Cardiology, Dr. Flores, verbally reported to me the echocardiogram and stress test were negative. Patient is felt to receive maximal hospital benefit and will be discharged home. Cardiology recommends discontinuation of Norvasc given the hypotension on admission. Dedicated discharge time 32 minutes. Disposition: 01 HOME / SELF CARE / HOMELESS Final Discharge Diagnosis (Prints w/discharge instructions): Chest pain with etiology likely secondary to GERD, coronary artery disease, diabetes mellitus type 2, hyperlipidemia, history of tobacco use Core Measure Documentation - Palliative Care Palliative Care/ Comfort Measures: Not Applicable - Core Measures Any of the following diagnoses?: none Exam - Constitutional Vitals: Temp Pulse Resp BP Pulse Ox 98.3 F 64 17 134/88 100 03/13/21 03:41 03/13/21 03:41 03/13/21 10:59 03/13/21 11:13 03/13/21 10:59 General appearance: Present: no acute distress, well-nourished - EENT Eyes: Present: PERRL ENT: hearing intact, clear oral mucosa - Neck Neck: Present: supple, normal ROM - Respiratory Respiratory effort: normal Respiratory: bilateral: CTA - Cardiovascular Heart Sounds: Present: S1 & S2. Absent: rub, click - Extremities Extremities: pulses symmetrical, No edema Peripheral Pulses: within normal limits - Abdominal General gastrointestinal: Present: soft, non-tender, non-distended, normal bowel sounds Male genitourinary: Present: normal - Integumentary Integumentary: Present: clear, warm, dry - Musculoskeletal Musculoskeletal: gait normal, strength equal bilaterally - Psychiatric Psychiatric: appropriate mood/affect, intact judgment & insight - Neurologic Neurologic: CNII-XII intact, moves all extremities Plan Activity: advance as tolerated Weight Bearing Status: Weight Bear as Tolerated Diet: low fat, low cholesterol, low salt, diabetic Follow up with: PRIMARY CAREMD [Primary Care Provider] - 3-5 Days SADIQ FLORES MD [Staff Physician] - 7 Days Prescriptions: hydrALAZINE [Apresoline TAB] 50 mg PO Q8HR #120 tablet Ticagrelor [Brilinta] 90 mg PO BID #60 tablet cloNIDine [Catapres] 0.2 mg PO TID #90 tablet Valsartan [Diovan] 160 mg PO Q12H #60 tablet Gabapentin 300 mg PO Q8HR #30 cap Aspirin EC [Halfprin EC] 81 mg PO QDAY #90 tablet ISOSORBIDE MONOnitrate [Imdur ER] 30 mg PO QDAY #30 tablet AtorvaSTATin [Lipitor] 80 mg PO QHS #60 tablet Metoprolol [Lopressor TAB] 50 mg PO BID #60 tablet Nitroglycerin [Nitrostat] 0.4 mg SL Q5M PRN #14 tablet PRN Reason: Chest Pain
--- NOTE | 2021-03-13 12:17 | Nuclear Medicine Report ---
APPROVED REPORT Exam: Nuclear Stress Test Indication: Chest pain Patient Location: [address] [place] [address] Room #: 459 Ht: 5 ft 7 in Wt: 227 lbs BSA: 2.13 m2 HR: 72 bpmBP: 111/82 mmHgBMI: 35.54 Stress Test Details Stress Test: Pharmacologic stress testing performed using 0.4 mg of regadenoson per 5 mL given IV over 10 seconds. Reason for pharmacologic stress test: physical limitation. HR Resting HR: 72 bpm Max HR Achieved: 97 bpm Max Heart Rate (APMHR): 180.834231 bpm Target HR (85% APMHR): 153.985269 bpm % of APMHR: 53.89 Recovery HR: 87 bpm BP Resting BP: 111/82 mmHg Max BP: 134/88 mmHg Recovery BP: 114/82 mmHg ECG Resting ECG: Sinus Rhythm WITH SINUS ARRHYTHMIA Clinical Reason for Termination: Completed protocol Stress Symptoms: None NM EXAM: Myocardial Perfusion REST/STRESS Resting Data Rest SPECT myocardial perfusion imaging was performed in supine position 45 minutes following the intravenous injection of 10 mCi of Tc-99m Myoview. Time of rest injection: 1000 Date: 03/13/2021 Pharmacologic Stress Pharmacologic stress test was performed by injecting Regadenoson 0.4 mg IV push followed by the intravenous injection of 28 mCi of Tc-99m Myoview. Time of stress injection: 1100 Date: 03/13/2021 Study Data TID = 1.15. Perfusion Nuclear Conclusion ECG Findings: negative for ischemia Clinical Findings: negative for ischemia Nuclear Findings: negative for ischemia Exercise Capacity: normal Left Ventricular Function: normal Normal study. No scintigraphic evidence for myocardial ischemia or scar. Normal left ventricular size and function with no regional wall motion abnormalities.
--- NOTE | 2021-03-16 10:29 | Electrocardiograph Report ---
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
--- NOTE | 2021-03-16 10:37 | Electrocardiograph Report ---
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
== END 2021-03-13 14:30 | disposition home or self-care (01) ==
LOC: ED 18:34 → 4A 22:05
PROVIDERS: ADMIT Internal Medicine Geriatric Medicine; ATTEND Hospitalist
DX: I20.0 Unstable angina (principal); R07.89 Other chest pain; I10 Essential (primary) hypertension; I25.2 Old myocardial infarction; E11.9 Type 2 diabetes mellitus without complications; J45.909 Unspecified asthma, uncomplicated; E78.5 Hyperlipidemia, unspecified; Z87.891 Personal history of nicotine dependence; Z79.4 Long term (current) use of insulin; Z79.82 Long term (current) use of aspirin; Z79.899 Other long term (current) drug therapy; Z98.890 Other specified postprocedural states; Z95.1 Presence of aortocoronary bypass graft
CPT/HCPCS: 36415; 71045; 78452; 80048; 80061; 82962; 84484; 85025; 85520; 85610; 85730; 93005; 93017; 93306; 96361; 96365; 96366; 96372; 96375; 96376; 99285; A9502; G0378; J1644; J2785; J7030; J3490; Q0162; Q9967; J1815